=== PATIENT | male | born 1935 | race Caucasian/White ===

== ENCOUNTER → 2018-05-11 15:28 | Outpatient (CLI) | payer MEDICARE, SELFPAY ==
[2018-05-11 18:01] LABS: Aspartate Aminotransferase 26 IU/L (17-59); BUN Creatinine Ratio 36.3 (6-22); Blood Urea Nitrogen 29 mg/dL (9-20); Calcium 9.1 mg/dL (8.4-10.2); Carbon Dioxide 30 mmol/L (22-32); Chloride 107 mmol/L (98-107); Cholesterol 130 mg/dL (140-199); Estimated Glomerular Filt Rate > 60.0 mL/min (>60); Glucose 134 mg/dL (80-110); HDL Cholesterol 50 mg/dL (40-60); HEMOLYSIS 21 (0-50); LDL Cholesterol Calculated 71 mg/dL (<100); Potassium 4.8 mmol/L (3.4-5.1); Sodium 146 mmol/L (137-145); Triglycerides 45 mg/dL (35-150)
[2018-05-11 18:31] LABS: Thyroid Stimulating Hormone 0.72 uIU/mL (0.47-4.68)
== END ==
PROVIDERS: PCP Internal Medicine; Visit Provider Internal Medicine
DX: E78.2 Mixed hyperlipidemia (principal); E11.9 Type 2 diabetes mellitus without complications; I10 Essential (primary) hypertension
CPT/HCPCS: 36415; 80048; 80061; 83036; 84443; 84450

== ENCOUNTER 2018-05-17 06:51 | Day surgery (SDC) | payer MEDICARE, OTHER, SELFPAY ==
[2018-05-17 07:25] VITALS: BP 155/75; PULSE 73; RESP 15; TEMP 36.2; O2SAT 94; BMI 23.6
[2018-05-17] MEDS: PROPARACAINE 0.5% OPHTH SOL 2 DROPS EYE-OP (07:25)
--- NOTE | 2018-05-17 07:31 | PM.PREOP ---
Pre-operative Note Interval Note Pre-op Check: Yes History & Physical Reviewed by Physician Changes: No H&P completed within 30 days and has changed as indicated here:: Fasting glucose 117 this AM
--- NOTE | 2018-05-17 07:34 | P.OP_ITS ---
Operative Date/Time/Diagnoses Date of procedure: 05/17/18 Time of procedure: 07:32 Procedure & Clinicians Procedure: Date of service:05/17/2018 Preoperative diagnoses: 1. Right advanced cataract. 2. Prostate disorder with floppy iris. 3. Narrow angle glaucoma suspect. 4. Diabetes, non-insulin dependent. 5. Hip and neck pain Postoperative diagnoses: 1. CataractAdvanced nuclear scerotic and cortical changes. Procedure: Complex Phacoemulsification with posterior chamber intraocular lens implant and use of Malugin ring. Surgeon: Nancy Sánchez MD Complications:none Specimen: None Implant:ZCBOO+24.0 Blood loss: None Anesthesia: Retrobulbar with monitored standby Anesthesiologist: Oskar Gar M.D. Description of procedure: Patient is a male year old with decreased vision due to cataract which is affecting activities of daily living. He wants surgery to improve vision. He is tamsulosin for prostate and has high risk of floppy iris syndrome. He has taken to the operating room and given IV sedation. A retrobulbar block insert consisting of 6 cc of 2% xylocaine without epinephrine mixed half and half with 0.5% Marcaine with 1 cc of hyaluronidase added is placed between the medial and lateral 1/3 of the inferior orbital rim. Lid akinesia is obtain with 1% xylocaine with epinephrine infiltrated along the lid margin. The eye is manually massaged for 30 sec, prepped using Betadine solution, and draped in the usual sterile fashion. Temporal approach was made, a 1 mm side-port incision was made at the 7:30 position. Phenylephrine 1.5% mixed with 1% xylocaine 0.2 cc was placed into the anterior chamber. Viscoat followed by Bala was then placed. A 2.6 mm clear incision with a 2.6 mm blade was placed at the 170 degree meridian.A Malyugin ring of 7.0 mm was placed in the anterior chamber. It was difficult to place due to a narow chamber and only to loops were used as placement was causing endothelial damage risk. A 360 degree capsulorrhexis style capsulotomy was then performed with a cystitome needle on a Healon. Hydrodelineation and hydrodissection were performed. The phacoemulsification unit is introduced, and sculpting notice used to groove the central lens. It is then removed in chopping mode. Epi nucleus is removed with epinuclear mode and irrigation aspiration was used to remove the peripheral cortex. The posterior capsule is polished. The intraocular lens is selected, inspected, power confirmed, and placed in the posterior chamber. The pupil was constricted. The wound was stromally hydrated and tested for leaks, there was none and was left sutureless. Vigamox 0.1 cc was placed into the anterior chamber. Kenalog 0.2 cc was placed in the superior subconjunctival space. A drop of antibiotic and was placed and the eye was patched and shielded. The patient was stable and returned to the recovery room in excellent condition. His iris did not flop and his glucose was stabe at 127 prior to surgery. Dictated by: Nancy Sánchez MD Copy to: [facility]
[2018-05-17] MEDS: CATARACT EYE COMPOUND (10 DROPS/SYRINGE) 3 DROPS EYE-OP (07:43)
[2018-05-17 07:55] VITALS: BMI 23.6
[2018-05-17] MEDS: BALANCED SALT IRRIG SOLN NO.2 15 ML IRRIG.SOLN IRR (08:24)
[2018-05-17] MEDS: CARBACHOL 1.5 ML VIAL INJ (08:24)
[2018-05-17] MEDS: CHONDROIDTIN/SOD HYALURONATE 1.05 ML SYRINGE INTRAOCULA (08:25)
[2018-05-17] MEDS: MOXIFLOXACIN OPHTH DROPS 3 ML BOTTLE 2 DROPS INJ (08:25)
[2018-05-17] MEDS: PHENYLEPHRINE/LIDOCAINE VIAL (OR) 0.2 ML EYE-OP (08:25)
[2018-05-17] MEDS: LIDOCAINE 1% W/EPI INJ 20 ML INJ (08:25)
[2018-05-17] MEDS: TRIAMCINOLONE 50 MG/5 ML VIAL INJ (08:26)
[2018-05-17] MEDS: BALANCED SALT IRRIG SOLN NO.2 500 ML, EPINEPHrine 1 MG IRR (08:26)
[2018-05-17] MEDS: LIDOCAINE 2% 4 ML, BUPIVACAINE 0.5% (PF) 4 ML, HYALURONIDASE 150 UNIT INJ (08:27)
[2018-05-17 09:05] VITALS: BP 153/66; PULSE 62; RESP 16; TEMP 36.6; O2SAT 99
--- NOTE | 2018-05-17 09:14 | SUR.PHASEII ---
instructions reviewed with pt and with verbalized understanding, pt tolerating coffee and crackers, up to bathroom to void.
[2018-05-17 09:18] VITALS: BP 152/68; PULSE 66; RESP 16; TEMP 36.6; O2SAT 99
== END 2018-05-17 09:21 | disposition home or self-care (01) ==
PROVIDERS: PCP Internal Medicine; Visit Provider Ophthalmology
DX: H25.11 Age-related nuclear cataract, right eye (principal); E11.9 Type 2 diabetes mellitus without complications; Z79.84 Long term (current) use of oral hypoglycemic drugs; I10 Essential (primary) hypertension; H21.81 Floppy iris syndrome; H40.039 Anatomical narrow angle, unspecified eye
CPT/HCPCS: J0171; J2704; J3301; J3470

== ENCOUNTER → 2019-05-03 11:06 | Outpatient (CLI) | payer MEDICARE, OTHER, SELFPAY ==
--- NOTE | 2019-05-03 | DI.RAD.S_ITS ---
PROCEDURE: XR HIP W PEL IF DONE LT 2V INDICATIONS: Pain in left hip TECHNIQUE: AP pelvis with lateral view(s) of the left hip(s). COMPARISON: [facility], , HIP 2V LEFT, 03/16/2010, 14:51. FINDINGS: Bones: No acute fracture. There is marked degeneration including loss of normal femoral head contour secondary to extensive cortical irregularity, cystic, sclerotic, and hypertrophic changes and complete loss of organized superior femoral acetabular joint space. There is likely ankylosis of the joint. There is axial migration of the right femoral head with severe medial and moderate to severe superior joint space loss. Pelvic ring appears intact. No suspicious bony lesions. Soft tissues: The visualized bowel gas pattern is normal. No suspicious soft tissue calcifications. IMPRESSION: 1. 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 2. Moderate to severe right hip degenerative changes. Dictated by: Elza Jones M.D. on 05/03/2019 at 14:57 Approved by: Elza Jones M.D. on 05/03/2019 at 15:01
== END ==
PROVIDERS: PCP Internal Medicine; Visit Provider Internal Medicine
DX: M25.552 Pain in left hip (principal)
CPT/HCPCS: 73502

== ENCOUNTER 2019-06-27 16:13 | Inpatient (IN) | payer MEDICARE, OTHER, SELFPAY ==
[2019-06-27] VITALS (9 sets, daily range): BP systolic 138–160; BP diastolic 64–91; PULSE 66–96; RESP 15–23; TEMP 36.4–36.7; O2SAT 93–100; BMI 24.4
--- NOTE | 2019-06-27 16:14 | DI.RAD.S_ITS ---
PROCEDURE: XR CHEST 1V INDICATIONS: suspected sepsis TECHNIQUE: One view of the chest was acquired. COMPARISON: None. FINDINGS: Surgical changes and devices: Median sternotomy and coronary artery bypass graft changes. Lungs and pleura: Lungs are clear. No pleural effusions or pneumothorax. Mediastinum: Mediastinal contours appear normal. Heart size is normal. Bones and chest wall: No suspicious bony lesions. Overlying soft tissues appear unremarkable. Degenerative changes in both shoulders. IMPRESSION: No acute process. Post coronary artery bypass graft. Dictated by: Elza Jones M.D. on 06/27/2019 at 17:18 Approved by: Elza Jones M.D. on 06/27/2019 at 17:19
[2019-06-27 16:49] LABS: Add Manual Diff / Slide Review NO; Basophils Absolute Auto 100 /uL (0-100); Basophils Percent Auto 0.6 % (0-2); Eosinophils Absolute Auto 0 /uL (0-450); Hematocrit 49.2 % (41-53); Hemoglobin 15.9 g/dL (13.5-17.5); Lymphocytes Absolute Auto 600 /uL (1100-4500); Lymphocytes Percent Auto 4.4 % (25-40); Mean Corpuscular HGB Conc 32.3 % (30-36); Mean Corpuscular Hemoglobin 30.2 PG (26-34); Mean Corpuscular Volume 93.5 fL (80-100); Monocytes Absolute Auto 700 /uL (0-900); Monocytes Percent Auto 5.7 % (3-14); Neutrophils Absolute Auto 11200 /uL (1500-7000); Neutrophils Percent Auto 89.3 % (50-75); Platelet Count 273 X10^3/uL (150-400); Red Blood Cell Count 5.26 X10^6/uL (4.5-5.9); Red Cell Distribution Width 15.7 % (11.6-14.8); White Blood Cell Count 12.6 X10^3/uL (4.5-11.0)
[2019-06-27 16:50] LABS: Prothrombin Time 11.1 SECONDS (10.1-12.7)
[2019-06-27 16:53] LABS: PTT Partial Thromboplastin Tim 32 SECONDS (26.4-36.2)
[2019-06-27 17:03] LABS: Creatine Kinase 1028 U/L (55-170)
[2019-06-27 17:04] LABS: Alanine Aminotransferase 21 IU/L (21-72); Albumin 4.7 g/dL (3.5-5.0); Albumin Globulin Ratio 1.3 (1.0-2.8); Alkaline Phosphatase 147 U/L (38-126); Aspartate Aminotransferase 69 IU/L (17-59); Bilirubin Total 1.4 mg/dL (0.2-1.3); Blood Urea Nitrogen 24 mg/dL (9-20); Calcium 9.8 mg/dL (8.4-10.2); Carbon Dioxide 18 mmol/L (22-32); Chloride 105 mmol/L (98-107); Globulin 3.5 g/dL (1.7-4.1); Glucose 232 mg/dL (80-110); HEMOLYSIS 23 (0-50); Lipase 41 U/L (23-300); Potassium 4.3 mmol/L (3.4-5.1); Sodium 143 mmol/L (137-145); Total Protein 8.2 g/dL (6.3-8.2)
[2019-06-27 17:09] LABS: B Type Natriuretic Peptide 444 (<100)
[2019-06-27 17:15] LABS: Troponin I 0.082 ng/mL (0.01-0.034)
[2019-06-27 17:16] LABS: Procalcitonin < 0.05 ng/mL (<0.5)
[2019-06-27 17:18] LABS: CKMB % Relative Index 1.2 % (1.5-5.0)
--- NOTE | 2019-06-27 17:38 | ED_ITS ---
HPI - Weakness General Chief complaint: Weakness Stated complaint: UTI, Fall Time Seen by Provider: 06/27/19 16:13 Source: patient, family and EMS Mode of arrival: EMS Limitations: no limitations History of Present Illness HPI Narrative: 83-year-old male former smoker with history of hypertension and hyperlipidemia presents by EMS after his 2nd fall of the day. He has had multiple falls as of late. They saw him this morning and he refused transport. On the 2nd call they insisted he come in as the patient is too weak to get up on his own, covered in his own urine, confused and living in a very unsafe environ ment. The patient has had a slow decline over the past month and seems to have stemmed from a fall at that time. He has excruciating left hip pain. He apparently stopped taking his medications at some point in that time frame as well. He has a primary care provider but keeps refusing to go to his appointments. states that he has become increasingly confused over the past week or so. MD Complaint: generalized weakness, lack of energy and difficulty walking Onset (ago): day(s) Duration: constant Location: generalized Exacerbating factors: none Related Data Home Medications Medication Instructions Recorded Confirmed acetaminophen 500 - 1,000 mg PO Q6H PRN 06/27/19 06/27/19 amlodipine 5 mg PO DAILY 06/27/19 06/27/19 aspirin 81 mg PO DAILY 06/27/19 06/27/19 atorvastatin 80 mg PO BEDTIME 06/27/19 06/27/19 carvedilol 25 mg PO BID 06/27/19 06/27/19 cholecalciferol (vitamin D3) 4,000 unit PO DAILY 06/27/19 06/27/19 [Vitamin D3] cyanocobalamin (vitamin B-12) 2,500 mcg SUBLINGUAL DAILY 06/27/19 06/27/19 [Vitamin B-12] levothyroxine 112 mcg PO DAILY 06/27/19 06/27/19 metformin 500 mg PO BID 06/27/19 06/27/19 omega-3 fatty acids-fish oil [Fish 1 cap PO 3XW 06/27/19 06/27/19 Oil] omeprazole 20 mg PO DAILY 06/27/19 06/27/19 ramipril 10 mg PO DAILY 06/27/19 06/27/19 terazosin 2 mg PO DAILY 06/27/19 06/27/19 Allergies Allergy/AdvReac Type Severity Reaction Status Date / Time No Known Drug Allergies Allergy Verified 05/17/18 07:54 Review of Systems Review of Systems Narrative: Patient is hesitant to contribute to review systems, therefore findings which are noted come from and daughter ROS Unobtainable: Unobtainable due to mental status/LOC Constitutional Constitutional: Denies chills, Reports fatigue, Denies fever(s), Denies frequent falls, Denies lethargy and Reports weakness Eyes Eyes: Denies change in vision, Denies eye discharge, Denies irritation and Denies loss of vision ENT Ears, Nose, Mouth, and Throat: Denies change in voice, Denies dizziness, Denies neck pain, Denies sore throat and Denies throat swelling Cardiovascular Cardiovascular: Denies chest pain, Denies irregular heart rhythm, Denies lightheadedness, Denies palpitations, Denies dyspnea, Denies dyspnea on exertion and Denies orthopnea Respiratory Respiratory: Denies cough, Denies dyspnea, Denies dyspnea on exertion and Denies wheezing Gastrointestinal Gastrointestinal: Denies abdominal pain, Denies change in bowel habits, Denies diarrhea, Denies nausea and Denies vomiting Genitourinary Genitourinary: Denies hematuria, Denies flank pain, Denies urinary incontinence and Denies urinary urgency Musculoskeletal Musculoskeletal: Denies back pain, Reports limited range of motion, Denies muscle weakness, Denies neck pain, Denies numbness and Denies tingling Integumentary/Breasts Skin/Breast: Denies pruritus, Denies erythema, Denies rash and Denies wounds Neurologic Neurologic: Denies behavioral changes, Reports confusion, Denies dizziness, Denies frequent falls, Denies loss of vision, Denies numbness, Denies tingling and Reports weakness Psychiatric Psychiatric: Denies anxiety, Denies behavioral changes, Reports confusion, Denies depression, Denies homicidal ideation and Denies suicidal ideation Endocrine Endocrine: Reports fatigue, Denies flushing and Denies palpitations Hematologic/Lymphatic Hematologic/Lymphatic: Denies easy bruising Allergic/Immunologic Allergic/Immunologic: Denies urticaria, Denies throat swelling and Denies wheezing Patient History Social History household members: spouse Smoking Status: Former smoker alcohol intake frequency: 0-2 drinks per day Substance Use Type: does not use Exam Narrative Exam Narrative: GENERAL: [83] year old patient appears stated age. Patient dish eveled, confused, unkempt, smells of urine HEAD: Atraumatic. Normocephalic. EYES: Pupils equal round and reactive. Extraocular motions intact. No scleral icterus. No injection or drainage. ENT: Dry mucous membranes Nose without bleeding, purulent drainage. Throat without erythema, tonsillar hypertrophy or exudate. Airway patent. NECK: Trachea midline. Non tender CARDIOVASCULAR: Regular rate and rhythm without murmurs, gallops, or rubs. RESPIRATORY: Clear to auscultation. Breath sounds equal bilaterally. No wheezes, rales, or rhonchi. GASTROINTESTINAL: Abdomen soft, non-tender, nondistended. EXTREMITIES: Severe pain in left hip with any passive or active range of motion No edema or joint tenderness. BACK: Nontender without deformity or crepitance. No flank tenderness. NEURO: Alert, oriented to person and place SKIN: Multiple areas of skin breakdown and abrasion on knees and elbows No rash or erythema of visible areas Initial Vital Signs Initial Vital Signs: Vital Signs Temperature 97.5 F L 06/27/19 16:10 Pulse Rate 96 H 06/27/19 16:10 Respiratory Rate 23 06/27/19 16:10 Blood Pressure 138/64 06/27/19 16:10 Pulse Oximetry 93 06/27/19 16:10 Course Orders Ordered: ED Orders 06/27/19 16:14 XR chest 1V Stat RT Consult Eval and Treat Now 06/27/19 16:26 EKG-12 Lead Stat 06/27/19 16:37 BNP [B Type Natriuretic Peptide] Stat Complete Blood Count AUTO DIFF Stat Comprehensive Metabolic Panel Stat Lactate (Lactic Acid) Stat Lipase Stat Partial Thromboplastin Time Stat Procalcitonin Stat Prothrombin Time INR Stat Troponin & CK Cardiac Panel Stat 06/27/19 16:40 Blood Culture Stat 06/27/19 17:45 CT head/brain wo con Stat 06/27/19 17:50 Urinalysis and Microscopic Stat 06/27/19 17:53 CT pelvis wo con Stat Discontinued Medications Fentanyl (Sublimaze) 50 mcg IV NOW ONE Stop: 06/27/19 18:23 Last Admin: 06/27/19 19:06 Dose: 50 mcg Documented by: SIMON Sodium Chloride (Normal Saline 0.9%) 1,000 mls @ 1,000 mls/hr IV BOLUS ONE Stop: 06/27/19 18:35 Last Infusion: 06/27/19 19:05 Dose: 0 mls/hr Documented by: Admin: 06/27/19 17:40 Dose: 1,000 mls/hr Documented by: SIMON Sodium Chloride (Normal Saline 0.9%) 1,000 mls @ 1,000 mls/hr IV BOLUS ONE Stop: 06/27/19 18:37 Last Admin: 06/27/19 19:05 Dose: 150 mls/hr Documented by: SIMON Lidocaine HCl (Urojet) 5 ml TOP NOW ONE Stop: 06/27/19 17:39 Last Admin: 06/27/19 17:40 Dose: 5 ml Documented by: SIMON Vital Signs Vital signs: Vital Signs - 8 hr 06/27/19 16:10 06/27/19 17:22 06/27/19 18:00 Temperature 97.5 F L Pulse Rate 96 H 74 69 Respiratory Rate 23 15 15 Blood Pressure 138/64 Blood Pressure [Left Arm] 143/72 H 159/76 H Pulse Oximetry 93 97 99 06/27/19 18:30 06/27/19 19:32 Temperature Pulse Rate 71 75 Respiratory Rate 15 17 Blood Pressure Blood Pressure [Left Arm] 160/74 H 158/83 H Pulse Oximetry 100 97 MDM - Weakness Lab Data Result diagrams: 06/27/19 16:37 06/27/19 16:37 Labs: Lab Results 06/27/19 06/27/19 06/27/19 Range/Units 16:37 16:37 16:37 WBC 12.6 H (4.5-11.0) X10^3/uL RBC 5.26 (4.5-5.9) X10^6/uL Hgb 15.9 (13.5-17.5) g/dL Hct 49.2 (41-53) % MCV 93.5 (80-100) fL MCH 30.2 (26-34) PG MCHC 32.3 (30-36) % RDW 15.7 H (11.6-14.8) % Plt Count 273 (150-400) X10^3/uL Neut % (Auto) 89.3 H (50-75) % Lymph % (Auto) 4.4 L (25-40) % [place] % (Auto) 5.7 (3-14) % Eos % (Auto) 0.0 L (2-4) % Baso % (Auto) 0.6 (0-2) % Neut # (Auto) 57388 H (4864-6932) /uL Lymph # (Auto) 600 L (9658-9286) /uL [place] # (Auto) 700 (0-900) /uL Eos # (Auto) 0 (0-450) /uL Baso # (Auto) 100 (0-100) /uL PT 11.1 (10.1-12.7) SECONDS INR 1.0 (0.9-1.3) APTT 32 (26.4-36.2) SECONDS Sodium (137-145) mmol/L Potassium (3.4-5.1) mmol/L Chloride (98-107) mmol/L Carbon Dioxide (22-32) mmol/L BUN (9-20) mg/dL Creatinine (0.66-1.25) mg/dL Estimated GFR (>60) mL/min BUN/Creatinine Ratio (6-22) Glucose (80-110) mg/dL Lactate (0.7-2.1) mmol/L Calcium (8.4-10.2) mg/dL Total Bilirubin (0.2-1.3) mg/dL AST (17-59) IU/L ALT (21-72) IU/L Alkaline Phosphatase (38-126) U/L Total Creatine Kinase (55-170) U/L CK-MB (CK-2) (<2.37) ng/mL CK-MB (CK-2) Rel Index (1.5-5.0) % Troponin I (0.01-0.034) ng/mL B-Natriuretic Peptide (<100) Total Protein (6.3-8.2) g/dL Albumin (3.5-5.0) g/dL Globulin (1.7-4.1) g/dL Albumin/Globulin Ratio (1.0-2.8) Lipase (23-300) U/L Procalcitonin < 0.05 (<0.5) ng/mL Urine Color Urine Appearance Urine pH (4.5-8.0) Ur Specific Dexter (1.000-1.035) Urine Protein (Negative) Urine Glucose (UA) (Negative) g/dL Urine Ketones (NEGATIVE) Urine Occult Blood (Negative) Urine Nitrate (Negative) Urine Bilirubin (NEGATIVE) Urine Urobilinogen (0.2) E.U./dL Ur Leukocyte Esterase (NEGATIVE) Urine RBC (0-5/HPF) Urine WBC (0-5/HPF) Amorphous Sediment Urine Bacteria (None) Ur Culture Indicated? 06/27/19 06/27/19 06/27/19 Range/Units 16:37 16:37 16:37 WBC (4.5-11.0) X10^3/uL RBC (4.5-5.9) X10^6/uL Hgb (13.5-17.5) g/dL Hct (41-53) % MCV (80-100) fL MCH (26-34) PG MCHC (30-36) % RDW (11.6-14.8) % Plt Count (150-400) X10^3/uL Neut % (Auto) (50-75) % Lymph % (Auto) (25-40) % [place] % (Auto) (3-14) % Eos % (Auto) (2-4) % Baso % (Auto) (0-2) % Neut # (Auto) (8782-0673) /uL Lymph # (Auto) (6650-7193) /uL [place] # (Auto) (0-900) /uL Eos # (Auto) (0-450) /uL Baso # (Auto) (0-100) /uL PT (10.1-12.7) SECONDS INR (0.9-1.3) APTT (26.4-36.2) SECONDS Sodium 143 (137-145) mmol/L Potassium 4.3 (3.4-5.1) mmol/L Chloride 105 (98-107) mmol/L Carbon Dioxide 18 L (22-32) mmol/L BUN 24 H (9-20) mg/dL Creatinine 1.20 (0.66-1.25) mg/dL Estimated GFR 58.0 L (>60) mL/min BUN/Creatinine Ratio 20.0 (6-22) Glucose 232 H (80-110) mg/dL Lactate 3.0 H (0.7-2.1) mmol/L Calcium 9.8 (8.4-10.2) mg/dL Total Bilirubin 1.4 H (0.2-1.3) mg/dL AST 69 H (17-59) IU/L ALT 21 (21-72) IU/L Alkaline Phosphatase 147 H (38-126) U/L Total Creatine Kinase 1028 H (55-170) U/L CK-MB (CK-2) 12.80 H (<2.37) ng/mL CK-MB (CK-2) Rel Index 1.2 L (1.5-5.0) % Troponin I 0.082 H (0.01-0.034) ng/mL B-Natriuretic Peptide (<100) Total Protein 8.2 (6.3-8.2) g/dL Albumin 4.7 (3.5-5.0) g/dL Globulin 3.5 (1.7-4.1) g/dL Albumin/Globulin Ratio 1.3 (1.0-2.8) Lipase 41 (23-300) U/L Procalcitonin (<0.5) ng/mL Urine Color Urine Appearance Urine pH (4.5-8.0) Ur Specific Dexter (1.000-1.035) Urine Protein (Negative) Urine Glucose (UA) (Negative) g/dL Urine Ketones (NEGATIVE) Urine Occult Blood (Negative) Urine Nitrate (Negative) Urine Bilirubin (NEGATIVE) Urine Urobilinogen (0.2) E.U./dL Ur Leukocyte Esterase (NEGATIVE) Urine RBC (0-5/HPF) Urine WBC (0-5/HPF) Amorphous Sediment Urine Bacteria (None) Ur Culture Indicated? 06/27/19 06/27/19 06/27/19 Range/Units 16:37 17:50 19:06 WBC (4.5-11.0) X10^3/uL RBC (4.5-5.9) X10^6/uL Hgb (13.5-17.5) g/dL Hct (41-53) % MCV (80-100) fL MCH (26-34) PG MCHC (30-36) % RDW (11.6-14.8) % Plt Count (150-400) X10^3/uL Neut % (Auto) (50-75) % Lymph % (Auto) (25-40) % [place] % (Auto) (3-14) % Eos % (Auto) (2-4) % Baso % (Auto) (0-2) % Neut # (Auto) (5291-9891) /uL Lymph # (Auto) (0281-5685) /uL [place] # (Auto) (0-900) /uL Eos # (Auto) (0-450) /uL Baso # (Auto) (0-100) /uL PT (10.1-12.7) SECONDS INR (0.9-1.3) APTT (26.4-36.2) SECONDS Sodium (137-145) mmol/L Potassium (3.4-5.1) mmol/L Chloride (98-107) mmol/L Carbon Dioxide (22-32) mmol/L BUN (9-20) mg/dL Creatinine (0.66-1.25) mg/dL Estimated GFR (>60) mL/min BUN/Creatinine Ratio (6-22) Glucose (80-110) mg/dL Lactate 1.7 (0.7-2.1) mmol/L Calcium (8.4-10.2) mg/dL Total Bilirubin (0.2-1.3) mg/dL AST (17-59) IU/L ALT (21-72) IU/L Alkaline Phosphatase (38-126) U/L Total Creatine Kinase (55-170) U/L CK-MB (CK-2) (<2.37) ng/mL CK-MB (CK-2) Rel Index (1.5-5.0) % Troponin I (0.01-0.034) ng/mL B-Natriuretic Peptide 444 H (<100) Total Protein (6.3-8.2) g/dL Albumin (3.5-5.0) g/dL Globulin (1.7-4.1) g/dL Albumin/Globulin Ratio (1.0-2.8) Lipase (23-300) U/L Procalcitonin (<0.5) ng/mL Urine Color Yellow Urine Appearance Clear Urine pH 6.5 (4.5-8.0) Ur Specific Dexter 1.015 (1.000-1.035) Urine Protein Trace H (Negative) Urine Glucose (UA) Negative (Negative) g/dL Urine Ketones Negative (NEGATIVE) Urine Occult Blood 1+ H (Negative) Urine Nitrate Negative (Negative) Urine Bilirubin Negative (NEGATIVE) Urine Urobilinogen 0.2 (0.2) E.U./dL Ur Leukocyte Esterase Negative (NEGATIVE) Urine RBC 1-5/hpf (0-5/HPF) Urine WBC None seen (0-5/HPF) Amorphous Sediment 2+ Urine Bacteria None seen (None) Ur Culture Indicated? Cult not indicated Imaging Data CT scan - head: Radiologist's impression: Nicolas Burnham 83 M 1935 [address] [address] [address] Scan Report Signed Patient: Nicolas Burnham RMR#: [id number] : 1935cct:[id number] Age/Sex: 83 / MDate of Service: 06/27/19 Loc: ED Accession Number: [id number] Procedure: CT head/brain wo con Ordering Provider: Travis Maddox D.O. PROCEDURE: CT HEAD/BRAIN WO CON INDICATIONS: multiple falls, confusion, weakness TECHNIQUE: Noncontrast 4.5 mm thick angled axial sections acquired from the foramen magnum to the vertex, with coronal and sagittal reformats. For radiation dose reduction, the following was used: automated exposure control, adjustment of mA and/or kV according to patient size. COMPARISON: None. FINDINGS: Image quality: Excellent. CSF spaces: Basal cisterns are patent. No extra-axial fluid collections. The ventricles are symmetric in size and shape. Brain: No intracranial bleeds or masses. There is cerebral volume loss for age, with resultant ventricular and sulcal prominence. There are periventricular and deep white matter chronic small vessel ischemic changes. There is intracranial internal carotid artery atherosclerosis. Skull and face: Calvarium and visualized facial bones appear intact, without suspicious lesions. Sinuses: Visualized sinuses and mastoids are clear. IMPRESSION: 1. No CT evidence of acute intracranial process. 2. Age-appropriate exam with mild chronic microvascular ischemic changes. Dictated by: Elza Jones M.D. on 06/27/2019 at 18:50 Approved by: Elza Jones M.D. on 06/27/2019 at 18:54 CT scan - pelvis: Radiologist's impression: [address] [address] [address] Scan Report Signed Patient: Nicolas Burnham RMR#: [id number] : 7Acct:[id number] Age/Sex: 83 / MDate of Service: 06/27/19 Loc: ED Accession Number: [id number] Procedure: CT pelvis wo con Ordering Provider: Travis Maddox D.O. PROCEDURE: CT PEL WO CON INDICATIONS: severe L hip pain TECHNIQUE: Noncontrast 3 mm axial sections acquired through the bony pelvis, with coronal and sagittal reformatting. COMPARISON: [facility], CR, XR HIP W PEL IF DONE LT 2V, 05/03/2019, 11:19. FINDINGS: Image quality: Excellent. Bones: There are severe degenerative changes in the left femoral acetabular joint including significant subcortical cystic changes, flattening and complete joint space loss of the superior femora acetabular joint, large marginal osteophytes, acetabular protrusio, and inward buckling of the medial wall of acetabulum. The fracture of the medial wall of the acetabulum is of uncertain chronicity as there is no significant thickening of the overlying tissue.. No other left hip fractures are identified. There are moderate degenerative changes involving the right femoral acetabular j oint. Decreased mineralization seen throughout the pelvis. Soft tissues: Small bilateral hip joint effusions. No significant soft tissue hematoma. No free fluid in the pelvis. Urinary bladder is partially decompressed with Coates catheter. There are numerous diverticula seen throughout the colon. There is a small bowel containing right inguinal hernia without signs of obstruction. Nonobstruct ing calcification seen in the lower pole of the right kidney. Moderate abdominal aortic atherosclerosis. IMPRESSION: 1. Severe left hip degenerative changes. Similar in morphology compared to the most recent radiograph. 2. There is a small buckle fracture of the medial left acetabular cortex without overlying soft tissue thickening. This is of uncertain chronicity. MRI is recommended to assess for age. No other acetabular or pelvic fractures. 3. Nonobstructing, small bowel containing right inguinal hernia. 4. Moderate degenerative changes involving the right femoral acetabular joint. Dictated by: Elza Jones M.D. on 06/27/2019 at 18:54 Approved by: Elza Jones M.D. on 06/27/2019 at 19:07 Chest x-ray: Radiologist's impression: [facility] [address] [place] [address] [id number] [address] Scan Report Signed Patient: Nicolas Burnham RMR#: [id number] : 1936Acct:[id number] Age/Sex: 83 / MDate of Service: 06/27/19 Loc: ED Accession Number: [id number] Procedure: CT pelvis wo con Ordering Provider: Travis Maddox D.O. PROCEDURE: CT PEL WO CON INDICATIONS: severe L hip pain TECHNIQUE: Noncontrast 3 mm axial sections acquired through the bony pelvis, with coronal and sagittal reformatting. COMPARISON: [facility], CR, XR HIP W PEL IF DONE LT 2V, 05/03/2019, 11:19. FINDINGS: Image quality: Excellent. Bones: There are severe degenerative changes in the left femoral acetabular joint including significant subcortical cystic changes, flattening and complete joint space loss of the superior femora acetabular joint, large marginal osteophytes, ac etabular protrusio, and inward buckling of the medial wall of acetabulum. The fracture of the medial wall of the acetabulum is of uncertain chronicity as there is no significant thickening of the overlying tissue.. No other left hip fractures are identified. There are moderate degenerative changes involving the right femoral acetabular joint. Decreased mineralization seen throughout the pelvis. Soft tissues: Small bilateral hip joint effusions. No significant soft tissue hematoma. No free fluid in the pelvis. Urinary bladder is partially decompressed with Coates catheter. There are numerous diverticula seen throughout the colon. There is a small bowel containing right inguinal hernia without signs of obstruction. Nonobstructing calcification seen in the lower pole of the right kidney. Moderate abdominal aortic atherosclerosis. IMPRESSION: 1. Severe left hip degenerative changes. Similar in morphology compared to the most recent radiograph. 2. There is a small buckle fracture of the medial left acetabular cortex without overlying soft tissue thickening. This is of uncertain chronicity. MRI is recommended to assess for age. No other acetabular or pelvic fractures. 3. Nonobstructing, small bowel containing right inguinal hernia. 4. Moderate degenerative changes involving the right femoral acetabular joint. Dictated by: Elza Jones M.D. on 06/27/2019 at 18:54 Approved by: Elza Jones M.D. on 06/27/2019 at 19:07 [facility] Narrative Medical decision making narrative: 83-year-old male with multiple comorbidities is frail and clearly failing as an outpatient. He has had multiple falls and is nonambulatory. He is confused, very dehydrated with the elevated lactate and CK over 1000. Patient requires hospitalization for stabilization of his condition Discharge Plan Departure Patient Disposition: Admitted As Inpatient Clinical Impression: Acute kidney injury, Adult failure to thrive Rhabdomyolysis Qualifiers: Rhabdomyolysis type: non-traumatic Qualified Code(s): M62.82 - Rhabdomyolysis Referrals: Shahab Flowers MD [Primary Care Provider] -
[2019-06-27] MEDS: LIDOCAINE 2% (UROJET) 5 ML GEL TOP (17:40)
[2019-06-27] MEDS: SODIUM CHLORIDE 0.9% 1,000 ML 1000 ML IV (17:40)
--- NOTE | 2019-06-27 17:45 | DI.CT.S_ITS ---
PROCEDURE: CT HEAD/BRAIN WO CON INDICATIONS: multiple falls, confusion, weakness TECHNIQUE: Noncontrast 4.5 mm thick angled axial sections acquired from the foramen magnum to the vertex, with coronal and sagittal reformats. For radiation dose reduction, the following was used: automated exposure control, adjustment of mA and/or kV according to patient size. COMPARISON: None. FINDINGS: Image quality: Excellent. CSF spaces: Basal cisterns are patent. No extra-axial fluid collections. The ventricles are symmetric in size and shape. Brain: No intracranial bleeds or masses. There is cerebral volume loss for age, with resultant ventricular and sulcal prominence. There are periventricular and deep white matter chronic small vessel ischemic changes. There is intracranial internal carotid artery atherosclerosis. Skull and face: Calvarium and visualized facial bones appear intact, without suspicious lesions. Sinuses: Visualized sinuses and mastoids are clear. IMPRESSION: 1. No CT evidence of acute intracranial process. 2. Age-appropriate exam with mild chronic microvascular ischemic changes. Dictated by: Elza Jones M.D. on 06/27/2019 at 18:50 Approved by: Elza Jones M.D. on 06/27/2019 at 18:54
--- NOTE | 2019-06-27 17:53 | DI.CT.S_ITS ---
PROCEDURE: CT PEL WO CON INDICATIONS: severe L hip pain TECHNIQUE: Noncontrast 3 mm axial sections acquired through the bony pelvis, with coronal and sagittal reformatting. COMPARISON: [facility], CR, XR HIP W PEL IF DONE LT 2V, 05/03/2019, 11:19. FINDINGS: Image quality: Excellent. Bones: There are severe degenerative changes in the left femoral acetabular joint including significant subcortical cystic changes, flattening and complete joint space loss of the superior femora acetabular joint, large marginal osteophytes, acetabular protrusio, and inward buckling of the medial wall of acetabulum. The fracture of the medial wall of the acetabulum is of uncertain chronicity as there is no significant thickening of the overlying tissue.. No other left hip fractures are identified. There are moderate degenerative changes involving the right femoral acetabular joint. Decreased mineralization seen throughout the pelvis. Soft tissues: Small bilateral hip joint effusions. No significant soft tissue hematoma. No free fluid in the pelvis. Urinary bladder is partially decompressed with Coates catheter. There are numerous diverticula seen throughout the colon. There is a small bowel containing right inguinal hernia without signs of obstruction. Nonobstructing calcification seen in the lower pole of the right kidney. Moderate abdominal aortic atherosclerosis. IMPRESSION: 1. Severe left hip degenerative changes. Similar in morphology compared to the most recent radiograph. 2. There is a small buckle fracture of the medial left acetabular cortex without overlying soft tissue thickening. This is of uncertain chronicity. MRI is recommended to assess for age. No other acetabular or pelvic fractures. 3. Nonobstructing, small bowel containing right inguinal hernia. 4. Moderate degenerative changes involving the right femoral acetabular joint. Dictated by: Elza Jones M.D. on 06/27/2019 at 18:54 Approved by: Elza Jones M.D. on 06/27/2019 at 19:07
[2019-06-27 17:56] LABS: Bacteria Urine None Seen; WBC Urine None Seen (0-5/HPF)
[2019-06-27 17:57] LABS: Appearance Urine UA CLEAR; Bilirubin Urine UA NEGATIVE (NEGATIVE); Color Urine UA YELLOW; Glucose Urine UA NEGATIVE (Negative); Ketones Urine UA NEGATIVE (NEGATIVE); Leukocyte Esterase Urine UA NEGATIVE (NEGATIVE); Nitrite Urine UA NEGATIVE (Negative); Occult Blood Urine UA 1+ (Negative); Protein Urine UA TRACE (Negative); Specific Gravity Urine UA 1.015 (1.000-1.035); Urobilinogen Urine UA 0.2 E.U./dL (0.2); pH Urine UA 6.5 (4.5-8.0)
[2019-06-27 18:17] LABS: Amorphous Sediment Urine 2+; Culture Indicated Urine Cult Not Indicated; RBC Urine 1-5/HPF (0-5/HPF)
[2019-06-27 18:43] LABS: Reflexed Lactate in 2 Hours Y
[2019-06-27] MEDS: SODIUM CHLORIDE 0.9% 1,000 ML 150 ML IV (19:05)
[2019-06-27] MEDS: fentaNYL 100 MCG/2 ML INJ 50 MCG IV ×2 (19:06→20:55)
[2019-06-27 19:22] LABS: Lactate 2HR (Lactic Acid Rflx) 1.7 mmol/L (0.7-2.1)
--- NOTE | 2019-06-27 19:33 | PC.NURSE ---
Full bedbath given. Multiple areas of break down including scrutum, between legs, coccxy. Open blisters noted on scrotum. Toe nails are grown into toes causing pain and discomfort.
--- NOTE | 2019-06-27 22:23 | PC.NURSE ---
Admit/Evening Shift Note- Patient arrived to room via stretcher from ER. Slider board used to transfer patient. Patient alert and oriented with occasional confusion and foregetfullness.
--- NOTE | 2019-06-27 22:25 | PC.NURSE ---
Admit/Evenign SHift Note- Patient arrived to room via stretcher from ER at 2115. Slider board used to transfer patientm to bed. Patient alert and oriented x2 with confusion and forgetfullness noted. Admission questions done, medications reviewed, and physical assessment done. abrasion noted to right knee. red rash noted to groin area, patient constantly scratching this area. Oriented to patient to bed and bed controls, phone, lights, and call hernandez/tv remote. Patient will require frequent reorientations due confusion and forgetfullness. safety measures in place. bed alarm activated. call hernandez and phone within reach. will continue to monitor.
--- NOTE | 2019-06-27 23:33 | PM.HP.1 ---
History of Present Illness History of Present Illness Date Patient Seen: 06/27/19 Time Patient Seen: 23:33 Chief complaint: UTI, Fall Narrative: HPI is obtained via direct interview with the patient. The patient is a poor and unreliable historian. The patient is an 83-year-old male with PMH of CAD (s/p CABG), HTN, HLD, hypothyroidism, BPH, B12/Folate deficiency, Muhammad's esophagus, and chronic right hip pain. Patient presented to the ED earlier in the day after sustaining a ground level fall. This is patient's 2nd fall of the day. Patient reports slipping on butter. Reports falling forward. Reports injury to the left aspect of the forehead. Denies loss of consciousness. Typically takes anti-thrombotic therapy, however has not taken any of his medications for the past 2 weeks. Patient states, I don't like to take medication and I'm tired of counting pills. Denies headache, neck pain, change in vision, chest pain, palpitations, dizziness/lightheadedness, shortness of breath, abdominal pain, and GI distress. States for the past month he has had dysuria, burning with urination. There is tenderness and edema of the scrotum and penis. Endorses urinary frequency. Denies hematuria. According to the ED patient has had progressive decline in health and deconditioning at least for the past 1 month. He has had recurrent falls. Patient lives with his . At baseline ambulates with the use of a cane. Known to have chronic left hip pain. ED Presentation & Work-Up VS, 06/27 @ 1610. T 97.5F BP 138/64 HR 96 RR 23 SpO2 93% on RA. Labs, 06/27/2019 @ 1637 Lactate 3.0 -> 1.7 (repeat @ 1906), PCT < 0.05 WBC 12.6 HGB 15.9 HCT 49.2 PLT 273 PT 11.1 INR 1.0 aPTT 32 Na 143 K 4.3 Cl 105 Ca 9.8 CO2 18 BUN 24 Cr 1.2 GFR 58 BUN:Cr 20 Glu 232 T.Bili 1.4 AST 69 ALT 21 Alk Phos 147 Lipase 41 CK (total) 1028 Trop 0.082 BNP 444 UA. protein (trace), occult blood (1+) EKG, 06/27/2019 @ 1626. AFIB (v-rate 92) vs. QTc 514. XR CHEST, 06/27/2019. No acute process. HEAD CT, 06/27/2019. No CT evidence of acute intracranial process. Age appropriate exam with mild chronic microvascular ischemic changes. PELVIS CT, 06/27/2019. - Severe LEFT hip degenerative changes. - Small buckle fracture of the medial LEFT acetabular cortex without overlying soft tissue thickening. This is of uncertain chronicity. MRI is recommended to assess for age. No other acetabular or pelvic fractures. - Nonobstructing, small bowel containing right inguinal hernia - Moderate degenerative changes involving the RIGHT femoral acetabular joint In ED, received 1L NS (1739), Lidocaine patch (1739), and Fentanyl 50 mcg IV (1905 and 2054). Coates catheter was placed in ED. Patient History Medical History (Updated 06/28/19 @ 07:50 by MADIHA Guevara) Ankylosis, left hip (Chronic) Muhammad esophagus (Chronic) Essential hypertension (Chronic) Folate deficiency (Chronic) Hyperlipidemia (Chronic) Hypothyroidism (Chronic) Vitamin B12 deficiency (Chronic) Family & Social History Social History: household members spouse Prior Living Arrangements House Safety & Behavioral: Feels Safe in Current Yes Environment Been Physically Hurt or No Threatened By a Person Suicidal Ideation Description None Suicide Plan Description No Plan Tobacco & Substance use: Smoking Status Former smoker alcohol intake never alcohol intake frequency 0-2 drinks per day Substance Use Type does not use Meds Home Medications and Allergies Home Medications Medication Instructions Recorded Confirmed Type acetaminophen 500 - 1,000 mg PO Q6H PRN 06/27/19 06/27/19 History amlodipine 5 mg PO DAILY 06/27/19 06/27/19 History aspirin 81 mg PO DAILY 06/27/19 06/27/19 History atorvastatin 80 mg PO BEDTIME 06/27/19 06/27/19 History carvedilol 25 mg PO BID 06/27/19 06/27/19 History cholecalciferol (vitamin D3) 4,000 unit PO DAILY 06/27/19 06/27/19 History [Vitamin D3] cyanocobalamin (vitamin B-12) 2,500 mcg SUBLINGUAL DAILY 06/27/19 06/27/19 History [Vitamin B-12] levothyroxine 112 mcg PO DAILY 06/27/19 06/27/19 History metformin 500 mg PO BID 06/27/19 06/27/19 History omega-3 fatty acids-fish oil [Fish 1 cap PO 3XW 06/27/19 06/27/19 History Oil] omeprazole 20 mg PO DAILY 06/27/19 06/27/19 History ramipril 10 mg PO DAILY 06/27/19 06/27/19 History terazosin 2 mg PO DAILY 06/27/19 06/27/19 History Allergies Allergy/AdvReac Type Severity Reaction Status Date / Time No Known Drug Allergies Allergy Verified 05/17/18 07:54 Review of Systems Review of Systems ROS Unobtainable: All systems reviewed & are unremarkable except as noted in HPI and below Exam Vital Signs (past 8 hours): - 06/27/19 16:10 06/27/19 17:22 06/27/19 18:00 Temperature 97.5 F L Pulse Rate 96 H 74 69 Respiratory Rate 23 15 15 Blood Pressure 138/64 Blood Pressure [Left Arm] 143/72 H 159/76 H Pulse Oximetry 93 97 99 06/27/19 18:30 06/27/19 19:32 06/27/19 20:23 Temperature Pulse Rate 71 75 66 Respiratory Rate 15 17 16 Blood Pressure Blood Pressure [Left Arm] 160/74 H 158/83 H 154/80 H Pulse Oximetry 100 97 97 06/27/19 21:24 Temperature 98.0 F Pulse Rate 69 Respiratory Rate 18 Blood Pressure 152/91 H Blood Pressure [Left Arm] Pulse Oximetry 97 Oxygen Delivery Method Room Air Narrative Exam Narrative: Constitutional: NAD. Frail in appearance. BMI 24.4 Neurologic: Awake and alert, oriented to person, place, year, season, month, day, and reason for hospital admission No tremor. No facial asymmetry. No unilateral weakness. No fasciculations. Forgetful. Frequently repeat self. No dysarthria or aphasia. Head: NC, AT Eyes: Pupils equal and reactive. Sclerae are anicteric. EOMI. Ears: external ears normal, very hard of hearing to normal conversation, no otorrhea Nose: external nose normal, no rhinorrhea or epistaxis Throat: DRY MM, poor oral hygiene, no oral lesions noted Neck: no masses, lymphadenopathy, or JVD Chest / Respiratory: equal chest rise unlabored respiratory effort, no dyspnea or tachypnea at rest, speaks in full sentences without difficulty CTAB Heart / CV: Irregular rhythm, controlled ventricular rate on telemetry, murmur present Abdomen / GI: NT, ND, + BS, no organomegaly : No suprapubic tenderness, Coates catheter present Scrotum: Edema of testicles and penis. Erythema of testicles. White lesions, some draining present on scrotum. Scrotum tender with palpation (pain appears to be severe to light touch) Area above the scrotum is dry. There is multiple pina consistent with scratching with scab formation. No evidence of intertrigo. Peripheral / Vascular: warm to touch, DP pulse is palpable and strong, both lower extremities warm to touch Musc: Full ROM of bilateral upper extremities. Diminished ROM of bilateral lower extremities. Pain with palpation of the left hip. Patient reluctant to left from bed due to pain. Able to lift right lower extremity hold against gravity. Skin: No overt ecchymoses. Scrotum as described previously. Scratches with scab formation in the suprapubic area and lower extremities. Skin tear, right lower extremity below right knee. Mycotic toenails. Overall toenail are severely overgrown. Objective Labs Result Diagrams: 06/27/19 16:37 06/28/19 00:05 Labs: Laboratory Results - last 24 hr 06/27/19 06/27/19 06/27/19 16:37 16:37 16:37 WBC 12.6 H RBC 5.26 Hgb 15.9 Hct 49.2 MCV 93.5 MCH 30.2 MCHC 32.3 RDW 15.7 H Plt Count 273 Neut % (Auto) 89.3 H Lymph % (Auto) 4.4 L [place] % (Auto) 5.7 Eos % (Auto) 0.0 L Baso % (Auto) 0.6 Neut # (Auto) 69859 H Lymph # (Auto) 600 L [place] # (Auto) 700 Eos # (Auto) 0 Baso # (Auto) 100 PT 11.1 INR 1.0 APTT 32 Sodium Potassium Chloride Carbon Dioxide BUN Creatinine Estimated GFR BUN/Creatinine Ratio Glucose Lactate Calcium Total Bilirubin AST ALT Alkaline Phosphatase Total Creatine Kinase CK-MB (CK-2) CK-MB (CK-2) Rel Index Troponin I B-Natriuretic Peptide Total Protein Albumin Globulin Albumin/Globulin Ratio Lipase Procalcitonin < 0.05 Urine Color Urine Appearance Urine pH Ur Specific [place] Urine Protein Urine Glucose (UA) Urine Ketones Urine Occult Blood Urine Nitrate Urine Bilirubin Urine Urobilinogen Ur Leukocyte Esterase Urine RBC Urine WBC Amorphous Sediment Urine Bacteria Ur Culture Indicated? 06/27/19 06/27/19 06/27/19 16:37 16:37 16:37 WBC RBC Hgb Hct MCV MCH MCHC RDW Plt Count Neut % (Auto) Lymph % (Auto) [place] % (Auto) Eos % (Auto) Baso % (Auto) Neut # (Auto) Lymph # (Auto) [place] # (Auto) Eos # (Auto) Baso # (Auto) PT INR APTT Sodium 143 Potassium 4.3 Chloride 105 Carbon Dioxide 18 L BUN 24 H Creatinine 1.20 Estimated GFR 58.0 L BUN/Creatinine Ratio 20.0 Glucose 232 H Lactate 3.0 H Calcium 9.8 Total Bilirubin 1.4 H AST 69 H ALT 21 Alkaline Phosphatase 147 H Total Creatine Kinase 1028 H CK-MB (CK-2) 12.80 H CK-MB (CK-2) Rel Index 1.2 L Troponin I 0.082 H B-Natriuretic Peptide Total Protein 8.2 Albumin 4.7 Globulin 3.5 Albumin/Globulin Ratio 1.3 Lipase 41 Procalcitonin Urine Color Urine Appearance Urine pH Ur Specific [place] Urine Protein Urine Glucose (UA) Urine Ketones Urine Occult Blood Urine Nitrate Urine Bilirubin Urine Urobilinogen Ur Leukocyte Esterase Urine RBC Urine WBC Amorphous Sediment Urine Bacteria Ur Culture Indicated? 06/27/19 06/27/19 06/27/19 16:37 17:50 19:06 WBC RBC Hgb Hct MCV MCH MCHC RDW Plt Count Neut % (Auto) Lymph % (Auto) [place] % (Auto) Eos % (Auto) Baso % (Auto) Neut # (Auto) Lymph # (Auto) [place] # (Auto) Eos # (Auto) Baso # (Auto) PT INR APTT Sodium Potassium Chloride Carbon Dioxide BUN Creatinine Estimated GFR BUN/Creatinine Ratio Glucose Lactate 1.7 Calcium Total Bilirubin AST ALT Alkaline Phosphatase Total Creatine Kinase CK-MB (CK-2) CK-MB (CK-2) Rel Index Troponin I B-Natriuretic Peptide 444 H Total Protein Albumin Globulin Albumin/Globulin Ratio Lipase Procalcitonin Urine Color Yellow Urine Appearance Clear Urine pH 6.5 Ur Specific [place] 1.015 Urine Protein Trace H Urine Glucose (UA) Negative Urine Ketones Negative Urine Occult Blood 1+ H Urine Nitrate Negative Urine Bilirubin Negative Urine Urobilinogen 0.2 Ur Leukocyte Esterase Negative Urine RBC 1-5/hpf Urine WBC None seen Amorphous Sediment 2+ Urine Bacteria None seen Ur Culture Indicated? Cult not indicated Assessment & Plan Assessment & Plan narrative: Traumatic rhabdomyolysis, acute, present on admission, active - Initial CK 1028. Mild CLAUDE (Cr 1.2) - IVF - Trend CK level - Hold VEST BUSHELER atorvastatin (off note, patient has not taken this med for 2 weeks) CLAUDE, present on admission, active - IVF - Trend renal function w/ routine lab - Avoid nephrotoxic agents - Optimize renal perfusion, avoid hypotension Myocardial Infarction Type II, acute, present on admission, active Suspected to be a sequela of an acute fall, rhabdomyolysis, and CLAUDE; however, ACS cannot be ruled out at this time. Found to be in AFIB, new onset ? Lactate 3 on admission, improving w/ hydration. - No active CP, dyspnea, or palpitations - New onset AFIB, currently rate controlled. - Trop elevated 0.082, trend - Repeat EKG in am - Give ASA 325 mg tonight, continue ASA 81 mg daily - Consider a stress test when medically stable - Risk stratify. FLP and A1C Leukocytosis, acute, present on admission, active - active infection vs reactive (s/p trauma / rhabdo) - UA negative for cystitis. XR unremarkable. - lactate 3 -> improved w/ IVF - Mild claude - Metabolic encephalopathy, not entirely clear, baseline cognitive function is unknown, GCS 15, forgetful w/o no overt focal or cognitive deficity DDx, concern for underlying dementia vs acute cerebrovascular process (in lieu of underlying / new afib) New onset atrial fibrillation, rate controlled, active - New onset ? Duration unknown. No prior reported or documented history in available records. Will ask PCP for records. - EKG, Tele monitoring - Echo in am - Trend and replete electrolytes; maintain K > 4 and Mg >2 - Check TSH, Mg - Resume VEST BUSHELER carvedilol 25 mg BID w/ hold parameters (hold for SBP < 110 and HR < 60) Scrotal pain, acute, no reported trauma, present on admission, active Etiology not entirely clear. Epididymitis vs. Testicular Torsion... Orchitis less likely Scrotal pain with edema and reported lower urinary tract symptoms. No reported trauma. - Elevate, monitor closely - Scrotal ultrasound in am - Scrotal lesions, draining, obtain wound culture - Start on levofloxacin 500 mg daily x10 days, first dose on 06/28. 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 No mention of prior fractures. - per CT pelvis, small buckle fracture of the medial left acetabular cortex without overlying soft tissue thickening. Fracture presumed to be acute (no prior pelvic CT to compare, however record of XR of hip in April 2019 w/o findings of a fracture). Also, recently having multiple recurrent falls. - pain control with... Tylenol 650 mg Q6H prn (mild pain, 1-3) Oxy IR 5 mg Q4H prn (moderate pain, 4-6) Morphine 2 mg IV Q4H (severe pain, 7-10, or break through pain) - consult orthopedic surgery in am (have not been contacted) BPH w/ LUTS, chronic condition, present on admission, active - Restart VEST BUSHELER regime of terazosin (has been off med for 2 weeks) Hypothyroidism, chronic condition, present on admission, active - Check TSH - Previously on levothyroxine 112 mcg daily, resume VEST BUSHELER regimen Physical Deconditioning, subacute and progressive, present on admission, active - consult PT, eval/treat re: physical deconditioning - consult OT, eval/treat re: decreased ability to partake in ADLs - Bedrest tonight. Advance activity as tolerated per PT Prolonged QTC, acute, present on admission, active - Asymptomatic. Repeat EKG in a.m. Code status discussed. Patient is undecided in regard to the code status. Will make him a full code, will need to revisit with on 06/28/2019. Patient does designated his as a surrogate decision maker. VTE prophylaxis with SCDs. Home medications reviewed and reconciled accordingly. Quality VTE Deep Vein Thrombosis/Pulmonary Embolism Present on Admission: No
[2019-06-28] VITALS (11 sets, daily range): BP systolic 106–161; BP diastolic 56–81; PULSE 47–76; RESP 13–18; TEMP 36.2–36.8; O2SAT 94–98
[2019-06-28 00:32] LABS: Alanine Aminotransferase 25 IU/L (21-72); Albumin 3.3 g/dL (3.5-5.0); Albumin Globulin Ratio 1.1 (1.0-2.8); Alkaline Phosphatase 89 U/L (38-126); Aspartate Aminotransferase 47 IU/L (17-59); BUN Creatinine Ratio 23.3 (6-22); Bilirubin Total 0.9 mg/dL (0.2-1.3); Blood Urea Nitrogen 21 mg/dL (9-20); Calcium 8.6 mg/dL (8.4-10.2); Carbon Dioxide 28 mmol/L (22-32); Chloride 109 mmol/L (98-107); Creatine Kinase 605 U/L (55-170); Estimated Glomerular Filt Rate > 60.0 mL/min (>60); Globulin 2.9 g/dL (1.7-4.1); Glucose 99 mg/dL (80-110); HEMOLYSIS < 15 (0-50); Potassium 3.8 mmol/L (3.4-5.1); Sodium 141 mmol/L (137-145); Total Protein 6.2 g/dL (6.3-8.2)
[2019-06-28 00:33] LABS: Magnesium 2.1 mg/dL (1.6-2.3)
[2019-06-28 00:44] LABS: Troponin I 0.094 ng/mL (0.01-0.034)
[2019-06-28] MEDS: POTASSIUM CHLORIDE 20 MEQ TAB PO (01:28)
[2019-06-28] MEDS: SODIUM CHLORIDE 0.9% 1,000 ML 100 ML IV ×3 (01:28→20:27)
[2019-06-28] MEDS: OXYCODONE IR 5 MG TABLET PO ×2 (01:28→21:08)
[2019-06-28 01:30] LABS: Free T4, Direct Thyroxine 0.78 ng/dL (0.78-2.19)
[2019-06-28] MEDS: ASPIRIN 325 MG TABLET PO (02:23)
[2019-06-28] MEDS: levoFLOXacin 500 MG/100 ML PIGGYBACK 100 MG IV (03:02)
--- NOTE | 2019-06-28 05:57 | PC.NURSE ---
Addendum entered by Erica Guadalupe R.N. 06/28/19 06:51: Pt appears to possibly have a little bit of a swallowing issue. It seems more of a concentration problem. When he concentrates it seems he can swallow fine, but then when asked to drink a bit more water he's taking in a bit of air and clearing his throat and letting out a cough. Reported to MADIHA Gomez who suggested keeping pt NPO for now. Original Note: Pt is AxOx3 although forgetful, asking the same questions repeatedly. Pt has a left hip fracture, very painful for him to be positioned. Oxycodone 5mg given. Pt has some draining lesions on his scrotum; Wound culture taken and sent. Scrotum is red and swollen as well, elevated overnight. The Glans of the penis is also very swollen, and painful for patient. Looks almost blanched. MADIHA Gomez came to bedside to evaluate. Ultrasound of scrotum ordered. Coates patent with clear yellow urine. Troponins elevated. Next draw due after 0600. Denies chest pain/pressure/palpitations. Tele: Afib Foam dressing and xeroform placed on Right knee skin tear from fall at home.
--- NOTE | 2019-06-28 06:00 | DI.US.S_ITS ---
PROCEDURE: US SCROTUM INDICATIONS: SCROTAL EDEMA, PAIN TECHNIQUE: Real-time scanning was performed of the scrotum and testicles, with image documentation. Color and pulse Doppler interrogation was performed of both testicles. COMPARISON: None. FINDINGS: Right: Testicle is normal in size at 3.8 x 2.6 x 3.1 cm, and homogenous in echotexture. Epididymis is normal in overall size and morphology. No hydrocele or varicoceles. Overlying scrotal skin is mildly thickened. There is fat and bowel within the right hemiscrotum. Left: Testicle is normal in size at 3.9 x 2.4 x 2.7 cm, and homogeneous in echotexture. Epididymis is normal in overall size and morphology. No hydrocele or varicoceles. Overlying scrotal skin is normal in thickness. Doppler: Color and pulse Doppler demonstrate normal and symmetric arterial flow in both testicles. IMPRESSION: 1. Normal testicles bilaterally. 2. Minimal right scrotal wall thickening measuring 7.0 mm 3. Bowel and fat within the right hemiscrotum suggesting right inguinal hernia. If indicated, CT could be performed for further assessment. Dictated by: Oskar BORREGO Interpreted: Lorna Monsalve MD on 06/28/2019 at 11:39 Approved by: Lorna Monsalve M.D. on 06/28/2019 at 13:43
--- NOTE | 2019-06-28 06:00 | DI.ECHO.S_ITS ---
[facility] +---------+ : : [address] : [place] : : : : [id number] : : : : Phone: [phone]+ Echocardiogram Report + + :Name: ALAINA BRUNO Study Date: 06/28/2019 Height: 70 in : :[facility] Weight: 170 lb : : Gender: Male BSA: 1.9 m2 : :: 1935 Age: 83 yrs BP: 106/56 mmHg: :Reason For Study: Atrial fibrillation : : Performed By: Elsa Hunter : :Referring: MOHIT PETERSEN : + + Interpretation Summary 1) Normal left ventricular size, wall motion, and systolic function (EF 60- 65%). 2) Grossly, normal right ventricular size and function. 3) The left atrium is severely dilated. 4) There is moderate aortic stenosis (valve area 1.4cm2, mean gradient 12mmHg, severity ratio 0.39). 5) No prior Echo available for comparison. Procedure: A two-dimensional transthoracic echocardiogram with color flow and Doppler was performed. The study quality was technically adequate. There is no prior echocardiogram noted for this patient. The patient was in atrial fibrillation with heart rates between 72-83 bpm during the exam. Left Ventricle: The left ventricle is normal in size. Left ventricular wall thickness is at the upper limits of normal. The ejection fraction is estimated to be 60-65%. Left ventricular systolic function is normal without focal wall motion abnormalities. Diastolic function could not be accurately assessed due to atrial fibrillation. Right Ventricle: The right ventricle grossly appears normal in size with probable normal systolic function. Atria: The left atrium is severely dilated. Right atrial size is normal. The interatrial septum is intact with no evidence for an atrial septal defect. Mitral Valve: The mitral valve leaflets are mildly calcified. There is moderate mitral annular calcification. There is trace mitral regurgitation. Aortic Valve: The calculated aortic valve area is 1.4 cm2. The peak aortic velocity is 2.4 m/sec. The aortic valve mean gradient is 12 mmHg. Severity ratio is 0.39. There is moderate aortic stenosis. No aortic regurgitation is present. Tricuspid Valve: The tricuspid valve leaflets are thickened and/or calcified, but open well. No tricuspid regurgitation. Pulmonary artery pressures cannot be estimated because of the lack of a measurable TR jet velocity. Pulmonic Valve: The pulmonic valve is not well seen, but is grossly normal. There is no pulmonic valvular regurgitation. Great Vessels: The aortic root is normal size. The ascending aorta could not be visualized. The aortic arch is normal in size. The IVC is dilated (diameter is greater than 2.1 cm) yet it collapses greater than 50% with a sniff. This suggests a right atrial pressure of 8 mm Hg. Pericardium/ Pleura There is no pericardial effusion. There is no pleural effusion. MMode/2D Measurements & Calculations LVIDd: 4.5 cm LVOT diam: 2.1 cm LVIDs: 2.9 cm Ao root diam: 3.5 cm FS: 36.0 % Aortic Jxn: 2.8 cm EPSS: 0.00 cm Ao Arch Diam (Prox Trans): 2.6 cm IVSd: 1.0 cm LVPWd: 1.1 cm LV wallace. diameter/BSA (cm/m^2): 2.3 LV sys. diameter/BSA (cm/m^2): 1.5 LA dimension: 5.1 cm RA long axis: 6.2 cm LA A2 area: 28.1 cm2 RA area: 21.7 cm2 LA A4 area: 28.6 cm2 RA vol: 64.8 ml LA length (vol): 6.0 cm RA : 33.2 ml/m2 LA vol: 113.7 ml IVC diam: 2.4 cm LA vol index: 58.3 ml/m2 Doppler Measurements & Calculations Ao V2 max: 236.3 cm/sec LVOT Max Eramso: 95.2 cm/sec Ao V2 mean: 164.4 cm/sec LV V1 max P.6 mmHg Ao max P.3 mmHg LV V1 VTI: 17.6 cm Ao mean P.4 mmHg TRACEE(I,D): 1.3 cm2 Ao V2 VTI: 44.7 cm TRACEE(V,D): 1.4 cm2 sev ratio: 0.39 TRACEE indexed to BSA (cm^2/m^2): 0.68 MV E max erasmo: 67.0 cm/sec PA V2 max: 103.7 cm/sec MV A max erasmo: 35.3 cm/sec PA V2 mean: 58.5 cm/sec MV E/A: 1.9 PA mean P.9 mmHg Med Peak E' Erasmo: 8.4 cm/sec PA Accel Time: 0.13 sec E/E' med: 8.0 Lat Peak E' Erasmo: 11.0 cm/sec E/E' lat: 6.1 E/e' average: 7.0 MV dec time: 0.18 sec MV P1/2t: 49.6 msec MV P1/2t max erasmo: 67.4 cm/sec SV(LVOT): 59.4 ml ALIS(P1/2t): 4.4 cm2 Reading Physician:01:11 PM
[2019-06-28 07:44] LABS: Alanine Aminotransferase 22 IU/L (21-72); Albumin 3.2 g/dL (3.5-5.0); Albumin Globulin Ratio 1.2 (1.0-2.8); Alkaline Phosphatase 82 U/L (38-126); Aspartate Aminotransferase 46 IU/L (17-59); BUN Creatinine Ratio 22.2 (6-22); Bilirubin Total 0.8 mg/dL (0.2-1.3); Blood Urea Nitrogen 20 mg/dL (9-20); Calcium 8.5 mg/dL (8.4-10.2); Carbon Dioxide 26 mmol/L (22-32); Chloride 111 mmol/L (98-107); Creatine Kinase 477 U/L (55-170); Estimated Glomerular Filt Rate > 60.0 mL/min (>60); Globulin 2.7 g/dL (1.7-4.1); Glucose 95 mg/dL (80-110); HEMOLYSIS < 15 (0-50); Potassium 3.9 mmol/L (3.4-5.1); Sodium 141 mmol/L (137-145); Total Protein 5.9 g/dL (6.3-8.2)
[2019-06-28 07:54] LABS: Troponin I 0.077 ng/mL (0.01-0.034)
--- NOTE | 2019-06-28 08:22 | PM.CN ---
History of Present Illness Consult details Date Patient Seen: 06/28/19 Time Patient Seen: 08:22 Chief complaint: UTI, Fall Reason for consult: L hip pain Requesting provider: Travis Maddox Narrative: 83-year-old male who was admitted with failure to thrive and rhabdomyolysis. He has evidently been deteriorating over the past month and has had several falls. He had 2 falls yesterday and was unable to get up on his own. He normally walks with a cane but has severe pain in the left hip with ambulation. The right hip is also quite painful. It hurts to weight bear and move. He has also been having significant pain and swelling in the scrotum with burning in his urination. He has had confusion recently per family. Not taking his medications nor going to his doctor's appointments. [facility] Medical History Ankylosis, left hip (Chronic) Muhammad esophagus (Chronic) Essential hypertension (Chronic) Folate deficiency (Chronic) Hyperlipidemia (Chronic) Hypothyroidism (Chronic) Vitamin B12 deficiency (Chronic) Social History household members: spouse Smoking Status: Former smoker alcohol intake: never Meds Home Medications and Allergies Home Medications Medication Instructions Recorded Confirmed Type acetaminophen 500 - 1,000 mg PO Q6H PRN 06/27/19 06/27/19 History amlodipine 5 mg PO DAILY 06/27/19 06/27/19 History aspirin 81 mg PO DAILY 06/27/19 06/27/19 History atorvastatin 80 mg PO BEDTIME 06/27/19 06/27/19 History carvedilol 25 mg PO BID 06/27/19 06/27/19 History cholecalciferol (vitamin D3) 4,000 unit PO DAILY 06/27/19 06/27/19 History [Vitamin D3] cyanocobalamin (vitamin B-12) 2,500 mcg SUBLINGUAL DAILY 06/27/19 06/27/19 History [Vitamin B-12] levothyroxine 112 mcg PO DAILY 06/27/19 06/27/19 History metformin 500 mg PO BID 06/27/19 06/27/19 History omega-3 fatty acids-fish oil [Fish 1 cap PO 3XW 06/27/19 06/27/19 History Oil] omeprazole 20 mg PO DAILY 06/27/19 06/27/19 History ramipril 10 mg PO DAILY 06/27/19 06/27/19 History terazosin 2 mg PO DAILY 06/27/19 06/27/19 History Allergies Allergy/AdvReac Type Severity Reaction Status Date / Time No Known Drug Allergies Allergy Verified 05/17/18 07:54 Review of Systems Constitutional Constitutional: Reports frequent falls Cardiovascular Cardiovascular: Denies chest pain Respiratory Respiratory: Denies cough and Denies wheezing Gastrointestinal Gastrointestinal: Denies change in bowel habits Genitourinary Genitourinary: Reports dysuria Musculoskeletal Musculoskeletal: Reports abnormal gait Integumentary/Breasts Skin/Breast: Reports lesions (Into the scrotum) Neurologic Neurologic: Reports abnormal gait, Reports confusion and Reports frequent falls Psychiatric Psychiatric: Reports confusion Endocrine Endocrine: Denies change in body appearance Hematologic/Lymphatic Hematologic/Lymphatic: Reports easy bruising Allergic/Immunologic Allergic/Immunologic: Denies wheezing Exam Vital Signs (past 8 hours): - 06/28/19 03:43 06/28/19 04:47 Temperature 97.7 F Pulse Rate 69 Respiratory Rate 16 Blood Pressure 161/79 H Pulse Oximetry 95 95 Oxygen Delivery Method Room Air Const Orientation: alert, awake, oriented to person and oriented to place Resp Auscultation: clear to auscultation bilaterally Cardio Rate: regular rate Rhythm: regular rhythm Extrem Other: Right hip able to flex 45? but gets severe pain with this. 0 internal rotation 10? external rotation easily wiggles toes, 1+ distal pulse. Left hip pain with any attempted flexion or log-rolling rotation. Easily wiggles toes, 1+ distal pulse, intact sensation distally. 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 Even were severe degenerative arthritis of the left hip with complete flattening of the head, overlapping osteophytes, and some medial protrusio verses small buckle fracture on the medial aspect of the acetabular Labs Result Diagrams: 06/27/19 16:37 06/28/19 06:48 Labs: Laboratory Results - last 24 hr 06/27/19 06/27/19 06/27/19 16:37 16:37 16:37 WBC 12.6 H RBC 5.26 Hgb 15.9 Hct 49.2 MCV 93.5 MCH 30.2 MCHC 32.3 RDW 15.7 H Plt Count 273 Neut % (Auto) 89.3 H Lymph % (Auto) 4.4 L [place] % (Auto) 5.7 Eos % (Auto) 0.0 L Baso % (Auto) 0.6 Neut # (Auto) 81513 H Lymph # (Auto) 600 L [place] # (Auto) 700 Eos # (Auto) 0 Baso # (Auto) 100 PT 11.1 INR 1.0 APTT 32 Sodium Potassium Chloride Carbon Dioxide BUN Creatinine Estimated GFR BUN/Creatinine Ratio Glucose Lactate Calcium Magnesium Total Bilirubin AST ALT Alkaline Phosphatase Total Creatine Kinase CK-MB (CK-2) CK-MB (CK-2) Rel Index Troponin I B-Natriuretic Peptide Total Protein Albumin Globulin Albumin/Globulin Ratio Lipase Procalcitonin < 0.05 TSH Free T4 Urine Color Urine Appearance Urine pH Ur Specific [place] Urine Protein Urine Glucose (UA) Urine Ketones Urine Occult Blood Urine Nitrate Urine Bilirubin Urine Urobilinogen Ur Leukocyte Esterase Urine RBC Urine WBC Amorphous Sediment Urine Bacteria Ur Culture Indicated? 06/27/19 06/27/19 06/27/19 16:37 16:37 16:37 WBC RBC Hgb Hct MCV MCH MCHC RDW Plt Count Neut % (Auto) Lymph % (Auto) [place] % (Auto) Eos % (Auto) Baso % (Auto) Neut # (Auto) Lymph # (Auto) [place] # (Auto) Eos # (Auto) Baso # (Auto) PT INR APTT Sodium 143 Potassium 4.3 Chloride 105 Carbon Dioxide 18 L BUN 24 H Creatinine 1.20 Estimated GFR 58.0 L BUN/Creatinine Ratio 20.0 Glucose 232 H Lactate 3.0 H Calcium 9.8 Magnesium Total Bilirubin 1.4 H AST 69 H ALT 21 Alkaline Phosphatase 147 H Total Creatine Kinase 1028 H CK-MB (CK-2) 12.80 H CK-MB (CK-2) Rel Index 1.2 L Troponin I 0.082 H B-Natriuretic Peptide Total Protein 8.2 Albumin 4.7 Globulin 3.5 Albumin/Globulin Ratio 1.3 Lipase 41 Procalcitonin TSH Free T4 Urine Color Urine Appearance Urine pH Ur Specific [place] Urine Protein Urine Glucose (UA) Urine Ketones Urine Occult Blood Urine Nitrate Urine Bilirubin Urine Urobilinogen Ur Leukocyte Esterase Urine RBC Urine WBC Amorphous Sediment Urine Bacteria Ur Culture Indicated? 06/27/19 06/27/19 06/27/19 16:37 17:50 19:06 WBC RBC Hgb Hct MCV MCH MCHC RDW Plt Count Neut % (Auto) Lymph % (Auto) [place] % (Auto) Eos % (Auto) Baso % (Auto) Neut # (Auto) Lymph # (Auto) [place] # (Auto) Eos # (Auto) Baso # (Auto) PT INR APTT Sodium Potassium Chloride Carbon Dioxide BUN Creatinine Estimated GFR BUN/Creatinine Ratio Glucose Lactate 1.7 Calcium Magnesium Total Bilirubin AST ALT Alkaline Phosphatase Total Creatine Kinase CK-MB (CK-2) CK-MB (CK-2) Rel Index Troponin I B-Natriuretic Peptide 444 H Total Protein Albumin Globulin Albumin/Globulin Ratio Lipase Procalcitonin TSH Free T4 Urine Color Yellow Urine Appearance Clear Urine pH 6.5 Ur Specific [place] 1.015 Urine Protein Trace H Urine Glucose (UA) Negative Urine Ketones Negative Urine Occult Blood 1+ H Urine Nitrate Negative Urine Bilirubin Negative Urine Urobilinogen 0.2 Ur Leukocyte Esterase Negative Urine RBC 1-5/hpf Urine WBC None seen Amorphous Sediment 2+ Urine Bacteria None seen Ur Culture Indicated? Cult not indicated 06/28/19 06/28/19 06/28/19 00:05 00:05 00:05 WBC RBC Hgb Hct MCV MCH MCHC RDW Plt Count Neut % (Auto) Lymph % (Auto) [place] % (Auto) Eos % (Auto) Baso % (Auto) Neut # (Auto) Lymph # (Auto) [place] # (Auto) Eos # (Auto) Baso # (Auto) PT INR APTT Sodium 141 Potassium 3.8 Chloride 109 H Carbon Dioxide 28 BUN 21 H Creatinine 0.90 Estimated GFR > 60.0 BUN/Creatinine Ratio 23.3 H Glucose 99 D Lactate Calcium 8.6 Magnesium 2.1 Total Bilirubin 0.9 AST 47 ALT 25 Alkaline Phosphatase 89 D Total Creatine Kinase 605 H D CK-MB (CK-2) CK-MB (CK-2) Rel Index Troponin I 0.094 H B-Natriuretic Peptide Total Protein 6.2 L Albumin 3.3 L Globulin 2.9 Albumin/Globulin Ratio 1.1 Lipase Procalcitonin TSH 11.60 H Free T4 0.78 Urine Color Urine Appearance Urine pH Ur Specific [place] Urine Protein Urine Glucose (UA) Urine Ketones Urine Occult Blood Urine Nitrate Urine Bilirubin Urine Urobilinogen Ur Leukocyte Esterase Urine RBC Urine WBC Amorphous Sediment Urine Bacteria Ur Culture Indicated? 06/28/19 06:48 WBC RBC Hgb Hct MCV MCH MCHC RDW Plt Count Neut % (Auto) Lymph % (Auto) [place] % (Auto) Eos % (Auto) Baso % (Auto) Neut # (Auto) Lymph # (Auto) [place] # (Auto) Eos # (Auto) Baso # (Auto) PT INR APTT Sodium 141 Potassium 3.9 Chloride 111 H Carbon Dioxide 26 BUN 20 Creatinine 0.90 Estimated GFR > 60.0 BUN/Creatinine Ratio 22.2 H Glucose 95 Lactate Calcium 8.5 Magnesium 2.0 Total Bilirubin 0.8 AST 46 ALT 22 Alkaline Phosphatase 82 Total Creatine Kinase 477 H CK-MB (CK-2) CK-MB (CK-2) Rel Index Troponin I 0.077 H B-Natriuretic Peptide Total Protein 5.9 L Albumin 3.2 L Globulin 2.7 Albumin/Globulin Ratio 1.2 Lipase Procalcitonin TSH Free T4 Urine Color Urine Appearance Urine pH Ur Specific [place] Urine Protein Urine Glucose (UA) Urine Ketones Urine Occult Blood Urine Nitrate Urine Bilirubin Urine Urobilinogen Ur Leukocyte Esterase Urine RBC Urine WBC Amorphous Sediment Urine Bacteria Ur Culture Indicated? Assessment & Plan Assessment & Plan narrative: He was admitted with failure to thrive in rhabdomyolysis after falls and being unable to get up. With respect to his hips, he has severe bilateral hip arthritis, much worse on the left. I do not think this is an acute fracture, I think this is most likely just protrusio from advanced severe arthritis. Either way, I would not treat him differently, he may be weight bear as tolerated on both hips, although he is very limited in his ambulation. He should get up with physical therapy and use a walker for ambulatory assistance. At some point in the future, I think he could benefit from elective total hip replacement on either side. However, this is not something that would be addressed while an inpatient for this hospitalization. It is elective surgery and not an emergency. He has no interest in surgery with his age but I did explain it could possibly something to consider in the future if he is medically more stable but again, not something to address while hospitalized at this point. He can follow up in our office electively in the future for evaluation of this. No further orthopedic follow-up required during this hospitalization.
[2019-06-28 08:31] LABS: Hemoglobin A1C% w Est Avg Glu 5.9 % (4.0-6.0)
[2019-06-28] MEDS: TERAZOSIN 1 MG CAPSULE 2 MG PO (10:50)
[2019-06-28] MEDS: LEVOTHYROXINE 112 MCG TABLET PO (10:51)
[2019-06-28] MEDS: CARVEDILOL 25 MG TABLET PO ×2 (10:51→20:27)
--- NOTE | 2019-06-28 11:40 | PT.IIE ---
Medical History (Last Reviewed 06/28/19 @ 08:23 by Toni Christine MD) Ankylosis, left hip (Chronic) Muhammad esophagus (Chronic) Essential hypertension (Chronic) Folate deficiency (Chronic) Hyperlipidemia (Chronic) Hypothyroidism (Chronic) Vitamin B12 deficiency (Chronic) Physical Therapy Inpatient Evaluation/Re-Eval M1 PT/OT-IP Prior Functional Status Start: 06/28/19 12:37 Freq: NEEDED Status: Active Protocol: Document 06/28/19 11:40 AB (Rec: 06/28/19 12:57 AB [id number]) Medical Review Prior Functional Status Medical History Reviewed Yes Communication able to make needs known; pt has confusion Mobility and Gait pt stated that he is modified independent with all mobilities and ambulation using SPC (pt's daughter came in end of PT session with his cane: a quad cane) Social History Household Members spouse Living Arrangements House Number of Floors (Floors) One Floor Number of Stairs To Enter/Railing? 1 step to enter Home Environment Walk in Shower Home Equipment Quad Cane,Hand Held Shower, Grab Bars Near Toilet,Grab Bars In Shower M2 PT-IP Current Condition Start: 06/28/19 12:37 Freq: NEEDED Status: Active Protocol: Document 06/28/19 11:40 AB (Rec: 06/28/19 12:57 AB [id number]) Physical Therapy Current Condition Current Condition Evaluation Date 06/28/19 Treatment Diagnosis s/p fall; rhabdomyolysis; difficulty in walking Onset Date 06/27/19 Precautions Other Precautions falls Weight Bearing Status Weight Bearing Status Weight Bear as Tolerated M3 PT-IP Subjective Start: 06/28/19 12:37 Freq: NEEDED Status: Active Protocol: Document 06/28/19 11:40 AB (Rec: 06/28/19 12:57 AB [id number]) Subjective Physical Therapy Visit Type Type Initial Evaluation Visit Start Time 11:40 Visit Stop Time 12:30 Total Visit Minutes 50 Number of [employer]AL [employer]NER Visits 0 Physical Therapy Visit Comments Patient Comments pt initially refusing but agreed to do PT after education Therapy Pain Assessment Pain When Pain Assessed At Rest Pain Present Pain Present Pain Reported Location Left Hip Scale Used pain scale not stated Pain Behaviors Calling Out,Guarding,Holding Area,Moaning,Wincing Pain Management Techniques Distraction,Re-positioning, Timing of Activity with Medications M4 PT-IP Mobility and Gait Start: 06/28/19 12:37 Freq: NEEDED Status: Active Protocol: Document 06/28/19 11:40 AB (Rec: 06/28/19 12:57 AB [id number]) PT-Bed Mobility Assessment Supine to Sit Supine to Sit Total Assistance,2 Person Assistance,Head of Bed Elevated,Bedrails Scooting Scooting to Edge of Bed Dependent PT-Transfer Assessment Sit to and From Stand Sit to and from Stand Maximum Assistance,2 Person Assistance,Use of Upper Extremities Equipment Transfer Assistive Device Gait Belt,Front Wheeled Walker Orthotic/Prosthetic Devices or Brace: No Transfers Transfer Destination Chair Transfer Technique Stand Step Pivot Transfer Ability Level of Assist Maximum Assistance Comments Mobility Comments pt c/o L hip pain with light touch. completed ROM and pt able to move LLE with less pain. completed bed mobility supine to sit HOB elevated total Ax 2 and max cues. initially requiring max A x 2 to maintain sitting balance on EOB with increase posterior trunk leaning. positioned pt and cued to lean forward. able to sit on EOB CGA to min A afterwards. completed sit to stand x 2 attempts max A x 2 and max cues. pt can be resistive and requires max cues. completed stand step transfer to the chair using FWW max A x 2 and max cues. positioned pt on the chair. call light and table placed within reach. Gait Assessment Comments Gait Comments unable at this time; able to take a few steps during transfers. PT-Balance Assessment Sitting Balance and Reactions Static Sitting Balance Ability Fair Dynamic Sitting Balance Ability Poor Standing Balance and Reactions Static Standing Balance Ability Poor Dynamic Standing Balance Ability Poor Device Used FWW M5 PT-IP Objective Assessments Start: 06/28/19 12:37 Freq: NEEDED Status: Active Protocol: Document 06/28/19 11:40 AB (Rec: 06/28/19 12:57 AB [id number]) Orientation Orientation/Cognition Level of Alertness Confusional State Orientation Name Language Function Ability Hard of Hearing Safety Awareness Decreased Safety Awareness Memory Description Short Term Impaired,Senior Living Impaired Strength Upper Extremity Strength Assessment Left Impaired Lower Extremity Strength Assessment Bilaterally Impaired Comments Strength Comments LLE: increase muscle guarding during ROM and unable to fully assess LLE: grossly graded: 3-/5 RLE: 3+/5 Sensation Assessment Sensation Gross Sensation WNL Muscle Tone Muscle Tone WNL Yes M6 PT-IP Treatment Start: 06/28/19 12:37 Freq: NEEDED Status: Active Protocol: Document 06/28/19 11:40 AB (Rec: 06/28/19 12:57 AB [id number]) Physical Therapy Treatment Exercises Exercises Ankle Pumps,Heel Slides Education Education Provided Safety M7 PT-IP Assessment and Plan Start: 06/28/19 12:37 Freq: NEEDED Status: Active Protocol: Document 06/28/19 11:40 AB (Rec: 06/28/19 12:57 AB [id number]) PT Summary Assessment and Plan Potential Rehabilitation Potential Fair Status of Condition at Evaluation Evolving Summary Impairments Pain,ROM,Strength,Balance, Coordination,Sensation,Tone, Cognition,Bed Mobility, Transfers,Gait,Activity Tolerance Assessment Summary Pt came in after a fall. c/o L hip pain but with negative imaging result. ortho consult stated L hip arthritis and pt is WBAT. pt requiring max A x 2 to total A x 2 with mobility at this time and will need SNF rehab to improve strength and functional mobility. Goals Bed Mobility Goal Minimal Assistance Transfer Goal Minimal Assistance,Front Wheeled Walker Gait Goal Minimal Assistance,Front Wheel Walker Gait Distance 50 Days to Meet Goals 10 Frequency of Treatment Frequency Of Treatment Once a Day Treatment Plan Physical Therapy Treatment Plan Bed Mobility Training,Transfer Training,Gait Training, Therapeutic Exercise,Balance Retraining,Post Op Education, Discharge Planning,Hot or Cold Pack,Neuromuscular Re-ed, Coordination Retraining,Manual Therapy Recommendations To Nursing Amount of Assist Needed 2 Person Assist Discharge Recommendations PT Discharge Recommendations SNF Rehab Equipment Needed for Home Before FWW if pt goes home Discharge
[2019-06-28] MEDS: HEPARIN 5,000 UNIT/ML VIAL 5000 UNIT SUBCUT ×2 (13:51→20:27)
--- NOTE | 2019-06-28 14:04 | DIET.PN ---
Addendum entered by [place] 06/29/19 14:05: Pt's POs <70%, initiated Ensure Enlive bid (breakfast/dinner). Will follow for ONS acceptance and I&Os. Original Note: Dietary Note Assessment: Mr. Burnham is a 83 yom admitted for a fall, UTI, and rhabdomyolisis. He has a HX of CAD, HTN, HLD, gallego's esophagus. It was indicated Mr. Burnham was having some difficulty swallowing. During our assessment he was eating lunch with no visible chewing or swallowing issues. He reports a change in appetite for 2 days prior to his admission, but states that has resolved. He also reports intentional weight loss over the last year. HT: 177.8cm WT: 73.5kg UBW: 97.7kg BMI: 23.2 Labs: WBC: 12.6 TCK: 477 alb: 3.2 MNA: 12 Wilman: 14 Nutrition Diagnosis: No nutrition diagnosis at this time. Interventions: 1. Discussed PO's and importance of protein w/ meals. Will monitor PO's for need for ONS if <70%. 2. Discussed food texture. Pt reports no difficulty chewing/swallowing. Cont to monitor for need for diet change. Consider M[facility]IRER consult. Diet Order: General EER: 2200 ellen @ 30 ellen/kg 95 g @ 1.3 g/kg Monitoring/Evaluations: PO's, weight, diet tolerance/need for diet modification, need for ONS ensure.
[2019-06-28 14:31] LABS: Creatine Kinase MB 9.41 ng/mL (<2.37)
--- NOTE | 2019-06-28 14:39 | PC.NURSE ---
0900- Pt is Alert and oriented x2. He had a few falls at home and ended up here at [facility]. He is being treated for a UTI and has a [place] catheter in. Urine color is yellow. Pt also has some issues with his skin. He has skin tear to his r.leg, the head of his penis is red and swollen. The top right of his pubic bone is hard and he has some pustules on his scrotum. There was an ultrasound done and was in to assess pts skin. He also has some redness on his bottom but it is blanchable and not open. Pt up with physical therapy and is a two max assist to get up and also with walker. He was just repositioned as he tried to get up on his own. Chair alarm is in place. Pt is on precautions as cultures from testicle area came back gram positive cocci with rods. Pt is on standard precautions.. He was just repositioned in the chair and seems to be more comfortable. His and daughter were into see patient for a short time. He is on a general diet and denies nausea or vomiting.
[2019-06-28 15:01] LABS: Cholesterol 161 mg/dL (140-199); HDL Cholesterol 41 mg/dL (40-60); LDL Cholesterol Calculated 110 mg/dL (<100); Triglycerides 50 mg/dL (35-150)
--- NOTE | 2019-06-28 16:26 | OT.IP.EVAL ---
Current Diagnoses Traumatic ischemia of muscle, initial encounter (06/27/19) Past Medical History (Last Reviewed 06/28/19 @ 08:23 by Toni Christine MD) Ankylosis, left hip (Chronic) Muhammad esophagus (Chronic) Essential hypertension (Chronic) Folate deficiency (Chronic) Hyperlipidemia (Chronic) Hypothyroidism (Chronic) Vitamin B12 deficiency (Chronic) Occupational Therapy Inpatient Evaluation/Re-Eval M1 PT/OT-IP Prior Functional Status Start: 06/28/19 16:00 Freq: NEEDED Status: Active Protocol: Document 06/28/19 16:01 [facility] (Rec: 06/28/19 16:26 [facility] [id number]) Medical Review Prior Functional Status Medical History Reviewed Yes Communication able to make needs known; pt has confusion Mobility and Gait Per PT note: pt stated that he is modified independent with all mobilities and ambulation using SPC (pt's daughter came in end of PT session with his cane: a quad cane) Social History Household Members spouse Living Arrangements House Number of Floors (Floors) One Floor Number of Stairs To Enter/Railing? 1 step to enter Home Environment Walk in Shower Home Equipment Quad Cane,Hand Held Shower, Grab Bars Near Toilet,Grab Bars In Shower M2 OT-IP Current Condition Start: 06/28/19 16:00 Freq: Status: Active Protocol: Document 06/28/19 16:01 [facility] (Rec: 06/28/19 16:26 [facility] [id number]) Occupational Therapy Current Condition Current Condition Evaluation Date 06/28/19 Treatment Diagnosis Left hip fracture Diagnosis Onset Date 06/27/19 Weight Bearing Status Weight Bearing Status Weight Bear as Tolerated Allowed Weight Bearing Amount (enter % Per consulting surgeon, pt or #) (%) would benefit from total hip replacement but pt not wanting the surgery at this time. M3 OT- IP Subjective and Pain Start: 06/28/19 16:00 Freq: Status: Active Protocol: Document 06/28/19 16:01 [facility] (Rec: 06/28/19 16:26 [facility] [id number]) OT- Subjective Occupational Therapy Visit Type Type Initial Evaluation Visit Start Time 15:20 Visit Stop Time 15:41 Total Visit Minutes 21 Occupational Therapy Visit Comments Patient Comments Pt needing encouragement but agreeable to get back to bed. OT Pain Assessment Pain Present Pain Present Unable to Respond FLACC Pain Scale Face Frequent/constant frown Legs Kicking or drawn up Activity Squirming,shifting Cry Moans/whimpers/complains M4 OT- IP ADL's Start: 06/28/19 16:00 Freq: Status: Active Protocol: Document 06/28/19 16:01 [facility] (Rec: 06/28/19 16:26 [facility] [id number]) OT ADL-Dressing General Eval Lower Body Dressing Ability Total Assistance Areas Needing Assistance Socks Comments OT Dressing Comments Pt dependent for all LB dressing needs at this time. OT ADL-Toileting Comments OT Toileting Comments Pt has [place] and dependent for cleaning while in bed and MAX A to roll to the right use of grab bar and pillow placed between his legs. OT ADL-Bathing Comments OT Bathing Comments Sponge bath more appropriate at this time for pt. M6 OT- IP Functional Cognition Start: 06/28/19 16:00 Freq: Status: Active Protocol: Document 06/28/19 16:01 [facility] (Rec: 06/28/19 16:26 [facility] [id number]) Cognitive Factors Limiting Selfcare Function Cognitive Ability Level of Alertness Alert Patient Orientation Name,Situation Attention Span Ability Capable of Focused Attention, Capable of Sustained Attention Ability to Follow Commands Able to Follow One Step Commands with Increased Time, Able to Follow One Step Commands with Repetition Memory Description Short Term Impaired Cognitive Comments Cognitive Assessment Comments Pt very hard of hearing and needing use of amplified head phones to hear.Due to pt's difficulty to hear , has trouble to comprehand and needing instructions repeated often and step and step instructions to let pt know what to except. OT- Vision and Hearing OT- Hearing Assessment OT- Hearing Assessment Hearing Impaired M7 OT- IP Mobility and Balance Start: 06/28/19 16:00 Freq: Status: Active Protocol: Document 06/28/19 16:01 [facility] (Rec: 06/28/19 16:26 [facility] [id number]) OT- Bed Mobility Assessment Sit to Supine Sit to Supine Assist Total Assistance,2 Person Assistance OT-Transfer Assessment Transfers Transfer Ability Maximum Assistance,2 Person Assistance Technique Transfer Destination Bed,Chair Transfer Technique Squat Pivot Devices Transfer Assistive Devices Gait Belt Comments Mobility Comments Pt needing MAXA to help scoot forwards in the recliner and assist form aid to keep him forwards. Therapist able to transfer to the right with squat pivot transfer while aid able to assist from the back. Total assist from sit to supine. OT- Gait Assessment Comments Gait Ability Comments No ambulation at this time. OT- Balance Assessment Sitting Balance and Reactions Static Sitting Balance Ability Fair Dynamic Sitting Balance Ability Poor M8 OT- IP Objective Assessments Start: 06/28/19 16:00 Freq: Status: Active Protocol: Document 06/28/19 16:01 [facility] (Rec: 06/28/19 16:26 [facility] [id number]) OT Gross Range of Motion Upper Extremity Range of Motion ROM Impairments Not able to fully assess , pt during transfer noted having difficulty to reach up to hold onto therapist's arms during transfer. At least able to raise arm 0-70 for shoulder flexion. OT Strength Comments Strength Comments BUE at least 3-/5. M9 OT- IP Assessment and Plan Start: 06/28/19 16:00 Freq: Status: Active Protocol: Document 06/28/19 16:01 [facility] (Rec: 06/28/19 16:26 [facility] [id number]) OT Summary Assessment and Plan Potential Rehabilitation Potential Fair Analytic Complexity at Evaluation Moderate Summary OT Impairments Pain,Range of Motion,Strength, Balance,Coordination, Functional Cognition, Functional Mobility,Self- Feeding,Grooming,Dressing, Toileting,Bathing,Toilet Transfers,Shower Transfers Progress Towards Goals Slow Progress due to Pain,Slow Progress due to Medical Issues,Slow Progress due to Activity Tolerance,Slow Progress due to Cognition Assessment Summary Pt MOD complexity due to recent fall resulting in left hip fracture, in addition has scrotal pain and edema and now mostly dependent x2 for all ADL and functional mobility needs. Prior pt walking with a quad cane and now just able to tolerate transfer only at this time. Pt far from baseline, not wanting surgery, and will benefit from skilled rehab prior to going home. Pt's current condition requiring too much assist from to care for pt. COntinue to work with OT in acute rehab to improve safety and independence for ADl's and for recommendation for equipment needs. Goals Grooming Goal Standby Assistance Dressing Goal Moderate Assistance Toileting Goal Moderate Assistance Bathing Goal Moderate Assistance Toilet Transfer Goal Minimal Assistance Shower Transfer Goal Moderate Assistance Patient/Caregiver Education Goal Caregiver Independent Assisting Patient Days to Meet Goals 15 Frequency of Treatment Frequency Of Treatment Once a Day Treatment Plan OT Treatment Plan ADL Training,Functional Cognition Training,Functional Mobility,Patient/Family Education,Discharge Planning Other Treatment Recommendations and Next Transfer to BSC MODA X 2 with Treatment Focus FWW. Discharge Recommendations OT Discharge Recommendations SNF Rehab Home Equipment Needs FWW, BSC, shower chair
[2019-06-28] MEDS: ACETAMINOPHEN 325 MG TABLET 650 MG PO (17:20)
--- NOTE | 2019-06-28 22:14 | P.PN_ITS ---
Subjective Subjective Date Patient Seen: 06/28/19 Time Patient Seen: 09:15 Interval history: The patient is an 83-year-old male with PMH of CAD (s/p CABG), HTN, HLD, hypothyroidism, BPH, B12/Folate deficiency, Muhammad's esophagus, and chronic right hip pain. Patient presented to the ED earlier in the day after sustaining a ground level fall. He has scrotal tenderness and pain and well as hip pain, but no other complaints. He had an ultrasound that showed bowel in his hernia but no evidence of abscess. Dr. Christine saw the patient for his hip fracture and he needs an elective hip replacement, but does not need any further management as an inpatient. Patient admitted to or that he had not changed his underwear in 2 weeks. Exam Vital Signs (past 8 hours): - 06/28/19 15:00 06/28/19 16:03 06/28/19 19:00 Temperature 97.3 F L Pulse Rate 47 L Respiratory Rate 18 Blood Pressure 139/73 Pulse Oximetry 95 98 94 06/28/19 19:53 Temperature 97.3 F L Pulse Rate 51 L Respiratory Rate 18 Blood Pressure 143/74 H Pulse Oximetry 97 Oxygen Delivery Method Room Air Oxygen Flow Rate 0 Narrative Exam Narrative: GENERAL APPEARANCE: Chronically ill appearing, frail, no acute distress SKIN: Inspection of the skin reveals only erythema of his scrotum. HEENT: Dry MM, no tongue bite pina or lacerations. NECK: Supple and symmetric. There was no thyroid enlargement, and no tenderness, or masses were felt. CHEST: Normal AP diameter and normal contour without any kyphoscoliosis. LUNGS: Auscultation of the lungs revealed no wheezes, rhonchi, or rales. CARDIOVASCULAR: Irregularly irregular with 2-3/6 systolic murmur. Peripheral pulses were 2+ and symmetric. ABDOMEN: Soft and nontender with normal bowel sounds. No ascites was noted. MUSCULOSKELETAL: There was no tenderness or effusions noted. Muscle strength and tone were normal. EXTREMITIES: No cyanosis, clubbing or edema. Genital: multiple areas of purulent appearing pustules around hair follices. Penis with irritation but no chancre or lymphadenopathy. Tender testicle. Edemat ous scrotum with mild erythema. NEUROLOGIC: Alert and oriented x 3. but significant errors in short term memory and recall. Objective Labs Result Diagrams: 06/27/19 16:37 06/28/19 06:48 Labs: Laboratory Results - last 24 hr 06/28/19 06/28/19 06/28/19 00:05 00:05 00:05 Sodium 141 Potassium 3.8 Chloride 109 H Carbon Dioxide 28 BUN 21 H Creatinine 0.90 Estimated GFR > 60.0 BUN/Creatinine Ratio 23.3 H Glucose 99 D Hemoglobin A1c Calcium 8.6 Magnesium 2.1 Total Bilirubin 0.9 AST 47 ALT 25 Alkaline Phosphatase 89 D Total Creatine Kinase 605 H D CK-MB (CK-2) CK-MB (CK-2) Rel Index Troponin I 0.094 H Total Protein 6.2 L Albumin 3.3 L Globulin 2.9 Albumin/Globulin Ratio 1.1 Triglycerides Cholesterol LDL Cholesterol, Calc HDL Cholesterol TSH 11.60 H Free T4 0.78 06/28/19 06/28/19 06/28/19 06:48 06:48 06:48 Sodium 141 Potassium 3.9 Chloride 111 H Carbon Dioxide 26 BUN 20 Creatinine 0.90 Estimated GFR > 60.0 BUN/Creatinine Ratio 22.2 H Glucose 95 Hemoglobin A1c 5.9 Calcium 8.5 Magnesium 2.0 Total Bilirubin 0.8 AST 46 ALT 22 Alkaline Phosphatase 82 Total Creatine Kinase 477 H CK-MB (CK-2) 9.41 H CK-MB (CK-2) Rel Index 2.0 Troponin I 0.077 H Total Protein 5.9 L Albumin 3.2 L Globulin 2.7 Albumin/Globulin Ratio 1.2 Triglycerides 50 Cholesterol 161 LDL Cholesterol, Calc 110 H HDL Cholesterol 41 TSH Free T4 Assessment & Plan Assessment & Plan narrative: Traumatic rhabdomyolysis, acute, present on adm ission, active - Initial CK 1028. Mild CLAUDE (Cr 1.2) which has now improved to 1.9. - IVF - Trend CK level - Hold [employer] atorvastatin (off note, patient has not taken this med for 2 weeks) CLAUDE, present on admission, resolved. Cr now 0.9 after initial of 1.2. - IVF - Trend renal function w/ routine lab - Avoid nephrotoxic agents - Optimize renal perfusion, avoid hypotension Myocardial Infarction Type II, acute, present on admission, active Suspected to be a sequela of an acute fall, rhabdomyolysis, and CLAUDE; however, ACS unlikely. Found to be in AFIB, new onset ? Lactate 3 on admission, improving w/ hydration. - No active CP, dyspnea, or palpitations - New onset AFIB, currently rate controlled. Discuss AC prior to discharge. - Trop elevated 0.082 which downtrended to 0.077. - Repeat EKG in am with no signficant changes but remains in afib. - Give ASA 325 mg tonight, continue ASA 81 mg daily - Risk stratify. FLP and A1C Leukocytosis, acute, present on admission, active - likely secondary to active scrotal / possible testicular infection. - active scotal infection vs reactive (s/p trauma / rhabdo) - UA negative for cystitis. XR unremarkable. - lactate 3 -> improved w/ IVF New onset atrial fibrillation, rate controlled, active - New onset ? Duration unknown. No prior reported or documented history in available records. Need additional history. - Echo showing normal EF, no diastolic dysfunction, and moderate . - Trend and replete electrolytes; maintain K > 4 and Mg >2 - Check TSH, Mg - Resume [employer] carvedilol 25 mg BID w/ hold parameters (hold for SBP < 110 and HR < 60) Scrotal pain, acute, no reported trauma, present on admission, active Etiology not entirely clear. Epididymitis vs. orchitis vs furunculitis. Favor furunculitis at this time based on exam. - Elevate, monitor closely - Scrotal ultrasound without abscess - Scrotal lesions, draining, wound culture with GPC and GPB, follow up cultures. - send STI workup. - Continue on levofloxacin 500 mg daily x10 days, first dose on 06/28. 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 No mention of prior fractures. - per CT pelvis, small buckle fracture of the medial left acetabular cortex without overlying soft tissue thickening. Fracture presumed to be acute (no prior pelvic CT to compare, however record of XR of hip in April 2019 w/o findings of a fracture). Also, recently having multiple recurrent falls. - pain control with... Tylenol 650 mg Q6H prn (mild pain, 1-3) Oxy IR 5 mg Q4H prn (moderate pain, 4-6) Morphine 2 mg IV Q4H (severe pain, 7-10, or break through pain) -orthopedic surgery recommends a non urgent, elective hip replacement but no further management as inpatient. He can ambulate as tolerated with physical therapy per their note. Appreciate Orthopedic surgery recommendations. BPH w/ LUTS, chronic condition, present on admission, active - Restart [employer] regime of terazosin (has been off med for 2 weeks) - he has urinary retention at this time and had a [place] catheter placed. Hypothyroidism, chronic condition, present on admission, active - TSH 11.6 with normal free t4. - Previously on levothyroxine 112 mcg daily, resume [employer] regimen at this time. Repeat TSH after continued medical compliance. Physical Deconditioning, subacute and progressive, present on admission, active - consult PT, eval/treat re: physical deconditioning - consult OT, eval/treat re: decreased ability to partake in ADLs Prolonged QTC, acute, present on admission, active - Asymptomatic. Repeat EKG in a.m. Code status discussed. Patient is undecided in regard to the code status. Will make him a full code, will need to revisit with family Patient does designated his as a surrogate decision maker. VTE prophylaxis with SCDs for now and pending decision re: anticoagulation. Home medications reviewed and reconciled accordingly. Quality VTE Deep Vein Thrombosis/Pulmonary Embolism Present on Admission: No
[2019-06-29] VITALS (8 sets, daily range): BP systolic 137–169; BP diastolic 66–87; PULSE 52–67; RESP 15–22; TEMP 36–36.8; O2SAT 97–99
[2019-06-29] MEDS: OXYCODONE IR 5 MG TABLET PO ×3 (00:34→19:38)
--- NOTE | 2019-06-29 03:56 | PC.NURSE ---
ICU called earlier that pt's. HR down to 38 when asleep. MADIHA Gomez notified, she states monitor pt. see how he's doing this morning. Pt. denies any dizziness, no C/O CP & other discomfort. Will report to day RN.
[2019-06-29] MEDS: HEPARIN 5,000 UNIT/ML VIAL 5000 UNIT SUBCUT ×3 (05:57→20:28)
[2019-06-29] MEDS: SODIUM CHLORIDE 0.9% 1,000 ML 100 ML IV ×2 (05:58→17:52)
[2019-06-29] MEDS: ACETAMINOPHEN 325 MG TABLET 650 MG PO (07:00)
[2019-06-29 07:05] LABS: Add Manual Diff / Slide Review NO; Basophils Absolute Auto 0 /uL (0-100); Basophils Percent Auto 0.6 % (0-2); Eosinophils Absolute Auto 100 /uL (0-450); Hematocrit 37.5 % (41-53); Hemoglobin 12.4 g/dL (13.5-17.5); Lymphocytes Absolute Auto 600 /uL (1100-4500); Lymphocytes Percent Auto 8.9 % (25-40); Mean Corpuscular HGB Conc 33.1 % (30-36); Mean Corpuscular Hemoglobin 30.8 PG (26-34); Mean Corpuscular Volume 93.1 fL (80-100); Monocytes Absolute Auto 500 /uL (0-900); Monocytes Percent Auto 7.1 % (3-14); Neutrophils Absolute Auto 5300 /uL (1500-7000); Neutrophils Percent Auto 81.4 % (50-75); Platelet Count 177 X10^3/uL (150-400); Red Blood Cell Count 4.03 X10^6/uL (4.5-5.9); Red Cell Distribution Width 15.7 % (11.6-14.8); White Blood Cell Count 6.6 X10^3/uL (4.5-11.0)
[2019-06-29 07:20] LABS: Creatine Kinase 230 U/L (55-170)
[2019-06-29 07:21] LABS: BUN Creatinine Ratio 27.8 (6-22); Blood Urea Nitrogen 25 mg/dL (9-20); Calcium 8.4 mg/dL (8.4-10.2); Carbon Dioxide 23 mmol/L (22-32); Chloride 112 mmol/L (98-107); Estimated Glomerular Filt Rate > 60.0 mL/min (>60); Glucose 101 mg/dL (80-110); HEMOLYSIS < 15 (0-50); Magnesium 1.9 mg/dL (1.6-2.3); Potassium 3.6 mmol/L (3.4-5.1); Sodium 140 mmol/L (137-145)
[2019-06-29 08:11] LABS: Hepatitis B Surface Antigen NEGATIVE s/c (NEGATIVE)
[2019-06-29 08:16] LABS: Hep C Virus Ab w/Reflex Quant NEGATIVE s/c (NEGATIVE)
[2019-06-29 08:18] LABS: Add Manual Diff / Slide Review NO; Basophils Absolute Auto 100 /uL (0-100); Basophils Percent Auto 0.8 % (0-2); Eosinophils Absolute Auto 100 /uL (0-450); Eosinophils Percent Auto 1.9 % (2-4); Hematocrit 39.1 % (41-53); Hemoglobin 12.9 g/dL (13.5-17.5); Lymphocytes Absolute Auto 500 /uL (1100-4500); Lymphocytes Percent Auto 8.3 % (25-40); Mean Corpuscular HGB Conc 33.1 % (30-36); Mean Corpuscular Volume 93.5 fL (80-100); Monocytes Absolute Auto 400 /uL (0-900); Monocytes Percent Auto 6.2 % (3-14); Neutrophils Absolute Auto 5400 /uL (1500-7000); Neutrophils Percent Auto 82.8 % (50-75); Platelet Count 181 X10^3/uL (150-400); Red Blood Cell Count 4.18 X10^6/uL (4.5-5.9); Red Cell Distribution Width 15.7 % (11.6-14.8); White Blood Cell Count 6.5 X10^3/uL (4.5-11.0)
[2019-06-29] MEDS: levoFLOXacin 500 MG/100 ML PIGGYBACK 100 MG IV (09:16)
[2019-06-29] MEDS: LEVOTHYROXINE 112 MCG TABLET PO (09:17)
[2019-06-29] MEDS: ASPIRIN EC 81 MG TABLET PO (09:17)
[2019-06-29] MEDS: TERAZOSIN 1 MG CAPSULE 2 MG PO (09:17)
--- NOTE | 2019-06-29 12:24 | PT.IPTN ---
Current Diagnoses Traumatic ischemia of muscle, initial encounter (06/27/19) Physical Therapy Treatment Note M2 PT-IP Current Condition Start: 06/28/19 12:37 Freq: NEEDED Status: Active Protocol: Document 06/28/19 11:40 AB (Rec: 06/28/19 12:57 AB [id number]) Physical Therapy Current Condition Current Condition Evaluation Date 06/28/19 Treatment Diagnosis s/p fall; rhabdomyolysis; difficulty in walking Onset Date 06/27/19 Precautions Other Precautions falls Weight Bearing Status Weight Bearing Status Weight Bear as Tolerated M3 PT-IP Subjective Start: 06/28/19 12:37 Freq: NEEDED Status: Active Protocol: Document 06/29/19 12:08 HH (Rec: 06/29/19 12:23 HH [id number]) Subjective Physical Therapy Visit Type Type Treatment Note Visit Start Time 11:45 Visit Stop Time 12:10 Total Visit Minutes 25 Notes Co-tx with HOLLY Lombardi Number of STEAM FITTER SUPERVISOR MAINTENANCE Visits 0 Physical Therapy Visit Comments Patient Comments Pt wants to sit in the chair Therapy Pain Assessment Pain When Pain Assessed At Rest Pain Present Pain Present Pain Reported Location Left Hip Scale Used pain scale not stated Pain Behaviors Calling Out,Guarding,Holding Area,Moaning,Wincing Pain Management Techniques Distraction,Re-positioning, Timing of Activity with Medications M4 PT-IP Mobility and Gait Start: 06/28/19 12:37 Freq: NEEDED Status: Active Protocol: Document 06/29/19 12:08 HH (Rec: 06/29/19 12:23 HH [id number]) PT-Bed Mobility Assessment Supine to Sit Supine to Sit Moderate Assistance,2 Person Assistance,Head of Bed Elevated,Bedrails Scooting Scooting to Edge of Bed Minimal Assistance,Moderate Assistance PT-Transfer Assessment Sit to and From Stand Sit to and from Stand Minimal Assistance,Moderate Assistance,2 Person Assistance ,Use of Upper Extremities Equipment Transfer Assistive Device Gait Belt,Front Wheeled Walker Orthotic/Prosthetic Devices or Brace: No Transfers Transfer Destination Bed,Chair Transfer Technique Stand Step Pivot Transfer Ability Level of Assist Moderate Assistance,2 Person Assistance,Use of Upper Extremities Comments Mobility Comments Pt c/o L hip pain but less than yesterday. Pt was able to sit up from elevated HOB with STUDENT SERVICES ADVISOR, min A to unweigh LLE. He then stood up with min A from bed and amb towards sink counter for self care. Pt needed extensive cues for walker management. Pt then stood in front of counter unsupported ~30s x 4 but with CGA. He then amb with CGA/ min A and returned to chair with mod A for eccentric stnad to sit. Pt needs education to use staggered stance. Gait Assessment Gait Gait Assistance Required: Contact Guard Assist,Minimum Assistance Distance (Feet) 8 Able to Maintain Weight Bearing Status Yes During Gait Assistive Devices Assistive Device Gait Belt,Front Wheeled Walker Orthotic/Prosthetic Devices or Brace: No Gait Deviations General Gait Pattern Antalgic,Decreased Stride Length,Decreased Feet Clearance,Flexed Trunk,Step-to Gait Factors Limiting Gait Function Factors Limiting Gait Function Decreased Activity Tolerance, Decreased Strength,Difficulty Following Directions,Limited Range of Motion,Pain,Poor Balance,Poor Safety Awareness Comments Gait Comments Pt amb with step to antalgic gait. He tends to WB through forefoot with knee flexion. Pt uses FWW with CGA/ min A. M5 PT-IP Objective Assessments Start: 06/28/19 12:37 Freq: NEEDED Status: Active Protocol: Document 06/28/19 11:40 AB (Rec: 06/28/19 12:57 AB [id number]) Orientation Orientation/Cognition Level of Alertness Confusional State Orientation Name Language Function Ability Hard of Hearing Safety Awareness Decreased Safety Awareness Memory Description Short Term Impaired,Maintenance Technician Impaired Strength Upper Extremity Strength Assessment Left Impaired Lower Extremity Strength Assessment Bilaterally Impaired Comments Strength Comments LLE: increase muscle guarding during ROM and unable to fully assess LLE: grossly graded: 3-/5 RLE: 3+/5 Sensation Assessment Sensation Gross Sensation WNL Muscle Tone Muscle Tone WNL Yes M6 PT-IP Treatment Start: 06/28/19 12:37 Freq: NEEDED Status: Active Protocol: Document 06/28/19 11:40 AB (Rec: 06/28/19 12:57 AB [id number]) Physical Therapy Treatment Exercises Exercises Ankle Pumps,Heel Slides Education Education Provided Safety M7 PT-IP Assessment and Plan Start: 06/28/19 12:37 Freq: NEEDED Status: Active Protocol: Document 06/29/19 12:08 HH (Rec: 06/29/19 12:23 HH [id number]) PT Summary Assessment and Plan Potential Rehabilitation Potential Fair Status of Condition at Evaluation Evolving Summary Impairments Pain,ROM,Strength,Balance, Coordination,Sensation,Tone, Cognition,Bed Mobility, Transfers,Gait,Activity Tolerance Assessment Summary Pt showed improved mobility. Pt got up and amb to sink counter and returned to chair with overall mod A for transfers and CGA/min A for amb. Pt primarily WB through R LE and B UEs. Pt is still has a high fall risk since he is very unsteady and has difficulty follow commands. He needs extensive cues for transfer techniques and walker management. Pt Goals Bed Mobility Goal Minimal Assistance Transfer Goal Minimal Assistance,Front Wheeled Walker Gait Goal Minimal Assistance,Front Wheel Walker Gait Distance 50 Days to Meet Goals 10 Frequency of Treatment Frequency Of Treatment Once a Day Treatment Plan Physical Therapy Treatment Plan Bed Mobility Training,Transfer Training,Gait Training, Therapeutic Exercise,Balance Retraining,Post Op Education, Discharge Planning,Hot or Cold Pack,Neuromuscular Re-ed, Coordination Retraining,Manual Therapy Recommendations To Nursing Amount of Assist Needed 1 Person Assist Discharge Recommendations PT Discharge Recommendations SNF Rehab Equipment Needed for Home Before FWW if pt goes home Discharge
--- NOTE | 2019-06-29 13:02 | OT.IP.TRT ---
Current Diagnoses Traumatic ischemia of muscle, initial encounter (06/27/19) Occupational Therapy Treatment Note M2 OT-IP Current Condition Start: 06/28/19 16:00 Freq: Status: Active Protocol: Document 06/28/19 16:01 [facility] (Rec: 06/28/19 16:26 [facility] [id number]) Occupational Therapy Current Condition Current Condition Evaluation Date 06/28/19 Treatment Diagnosis Left hip fracture Diagnosis Onset Date 06/27/19 Weight Bearing Status Weight Bearing Status Weight Bear as Tolerated Allowed Weight Bearing Amount (enter % Per consulting surgeon, pt or #) (%) would benefit from total hip replacement but pt not wanting the surgery at this time. M3 OT- IP Subjective and Pain Start: 06/28/19 16:00 Freq: Status: Active Protocol: Document 06/29/19 12:45 [facility] (Rec: 06/29/19 13:02 [facility] [id number]) OT- Subjective Occupational Therapy Visit Type Type Treatment Note Visit Start Time 11:45 Visit Stop Time 12:20 Total Visit Minutes 35 Occupational Therapy Visit Comments Patient Comments Pt wanting to get out of bed. PT Mg present for therapy session with pt. OT Pain Assessment Pain When Pain Assessed During Mobility Pain Present Pain Present Pain Reported M4 OT- IP ADL's Start: 06/28/19 16:00 Freq: Status: Active Protocol: Document 06/29/19 12:45 [facility] (Rec: 06/29/19 13:02 [facility] [id number]) OT ADL-Grooming General Evaluation Grooming Ability Standby Assistance Areas Needing Assistance Retrieving/Set-up of Grooming Items Comments OT Grooming Comments Pt needing able to brush his teeth however haphazardly, washed his hands and needing cues for completeness and to wash his face. Pt needing his left arm to assist his right arm to brush his hair. 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 OT ADL-Dressing General Eval Upper Body Dressing Ability Moderate Assistance Comments OT Dressing Comments MODA to assist to jeaneth gown on . Pt having trouble to lift and move right arm. OT ADL-Toileting Comments OT Toileting Comments Pt has [place] in. Able to stand pt with MODA X 1 while nursing aid able to clean pt for pericare needs. M6 OT- IP Functional Cognition Start: 06/28/19 16:00 Freq: Status: Active Protocol: Document 06/29/19 12:45 [facility] (Rec: 06/29/19 13:02 [facility] [id number]) Cognitive Factors Limiting Selfcare Function Cognitive Ability Level of Alertness Alert,Confusional State Patient Orientation Name Attention Span Ability Capable of Focused Attention, Unable to Sustain Attention Ability to Follow Commands Able to Follow One Step Commands with Increased Time, Able to Follow One Step Commands with Repetition Memory Description Short Term Impaired Safety Awareness Underestimates Need for Assistance Problem Solving Ability Unable to Identify Errors, Needs Assist to Identify Solutions Executive Function Ability Unable to Switch Focus,Unable to Filter Distractions,Unable to Make Plans,Unable to Remember Details Cognitive Comments Cognitive Assessment Comments Pt needing cues throughout task of grooming . Pt needing step by step commands for bed mobility needs, safety with FWW, hand placement for use of FWW and to push up from the recliner before standing. M7 OT- IP Mobility and Balance Start: 06/28/19 16:00 Freq: Status: Active Protocol: Document 06/29/19 12:45 [facility] (Rec: 06/29/19 13:02 [facility] [id number]) OT- Bed Mobility Assessment Supine to Sit Supine to Sit Assist Moderate Assistance,2 Person Assistance,Head of Bed Elevated OT-Transfer Assessment Sit to and From Stand Sit to and from Stand Minimal Assistance,Maximum Assistance,2 Person Assistance Transfers Transfer Ability Minimal Assistance,Moderate Assistance,1 Person Assistance ,2 Person Assistance Technique Transfer Destination Bed,Chair Devices Transfer Assistive Devices Gait Belt,Front Wheeled Walker Comments Mobility Comments Pt MODA x 2 to get to the edge of the bed with HOB . Assist for trunk and assist to help move left LE. Pt mainly needing assist to support the weight of his left leg and able to assist to move to the edge of the bed. Sit to stand varies pending on the height of surface standing from, hospital bed ROSANA x2, from the recliner MAX A X 1. When up with FWW at times assist to guide FWW, therefore MODA X 1. As pt tires may need 2nd person to help. OT- Balance Assessment Sitting Balance and Reactions Static Sitting Balance Ability Good Dynamic Sitting Balance Ability Fair Standing Balance and Reactions Static Standing Balance Ability Fair M9 OT- IP Assessment and Plan Start: 06/28/19 16:00 Freq: Status: Active Protocol: Document 06/29/19 12:45 [facility] (Rec: 06/29/19 13:02 [facility] [id number]) OT Summary Assessment and Plan Potential Rehabilitation Potential Fair Analytic Complexity at Evaluation Moderate Summary OT Impairments Pain,Range of Motion,Strength, Balance,Coordination, Functional Cognition, Functional Mobility,Self- Feeding,Grooming,Dressing, Toileting,Bathing,Toilet Transfers,Shower Transfers Progress Towards Goals Slow Progress due to Pain,Slow Progress due to Medical Issues,Slow Progress due to Activity Tolerance,Slow Progress due to Cognition Assessment Summary Pt still having decreased safety awareness, needing two person assist for toileting needs, and 1-2 person for mobility needs. Pt will benefit from skilled rehab. Goals Grooming Goal Standby Assistance Dressing Goal Moderate Assistance Toileting Goal Moderate Assistance Bathing Goal Moderate Assistance Toilet Transfer Goal Minimal Assistance Shower Transfer Goal Moderate Assistance Patient/Caregiver Education Goal Caregiver Independent Assisting Patient Days to Meet Goals 7 Frequency of Treatment Frequency Of Treatment Once a Day Treatment Plan OT Treatment Plan ADL Training,Functional Cognition Training,Functional Mobility,Patient/Family Education,Discharge Planning Other Treatment Recommendations and Next shower Treatment Focus Discharge Recommendations OT Discharge Recommendations SNF Rehab
--- NOTE | 2019-06-29 14:06 | CM.DPC ---
DCP Continued: CM attempted to meet with patient at bedside at 0845 am 06/29/2019. Patient was tired and wanted to meet later. CM asked if patient would be open to a SNF option if it was needed at D/C. Patient stated if he absolutely needed it he would be open to SNF. CM attempted to contact and daughter. Daughters phone was disconnected. CM contacted Herminia at [facility] to review patient for possible admission. CM asked pt nurse to let Cm know when family arrived for the day so CM can F/U about possible D/C plan. Plan: CM D/C plan to continue once family is contacted and Cm is able to get a full assessment. Cynthia Skinner RN
--- NOTE | 2019-06-29 14:41 | PC.NURSE ---
Pt is upset and wants to go home. He is confused and states that he does not trust us. He never wants to come back to this hospital. Try to explain to him that he has some issues going on, such as skin irritation and a bladder infection but he does not understand that he needs to be here. He is unsteady on his feet and has pain to his l. hip. Given percolone about 1 hour ago and denies further pain. He took his meds well this am, bp med not given as hr in 60s and did go down to 38 this am. Coordinator is in talking to patient now. Note left for Dr. Evangelista to hopefully see him soon. Pt keeps repeating the same things and talking about leaving. He is Alert and oriented x2. Coates cath in place with dark yellow urine. His penis and scrotum are looking less red, he is having more redness in his groin folds. Area dried and pillow case applied to help keep moisture out.
--- NOTE | 2019-06-29 15:05 | CM.DANOTE ---
DCP/continued assessment: Reviewed chart. Patient is a 83yr old male admitted to [facility] after [facility] with UTI. PCP is listed is Dr. Flowers. Primary payor is 1)Medicare 2)[employer]. Received verbal referral from CM/BETTY Marie requesting d/c planning follow up. EVP AND CHIEF OPERATING OFFICER reviewed therapy notes. Current recommendation is SNF. Met with patient and spouse/Milena at bedside explained CM/SW role. Milena agreeable to sign MAX. EVP AND CHIEF OPERATING OFFICER went over with patient and spouse current recommendations. Patient very [place] and EVP AND CHIEF OPERATING OFFICER having to repeat information. Patient adamantly refusing SNF when medically stable. Patient reports that he would like to d/c home today. Patient and spouse aware and agreeable to HH. [facility] preferred because they are available over the weekend if needed. F2F and order for HH obtained for RN/PT/OT/HOTEL YARDPERSON/EVP AND CHIEF OPERATING OFFICER. Patient appears confused at time of visit but capable of answering simple questions. Patient reports that he resides with his spouse and uses black cane at baseline. Patient reports that he drives at baseline. Spouse reports that patient's memory has been worsening. Per RODRIGO/Cynthia patient agreeable to SNF earlier today. Referral made for [facility] to review for potential admit. Patient refused adamantly during EVP AND CHIEF OPERATING OFFICER visit. Patient and spouse provided EVP AND CHIEF OPERATING OFFICER with permission to speak with son/Humberto in [place] re: d/c planning. Son reports that he was last visiting patient in April prior to that it has been 9yrs. Son reports that patient has burned a lot of bridges with family members. Son reports that patient most likely has undiagnosed mental health disorder. He has not been physically abusive towards family but very verbally abusive. 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 Son believes this contributes to patient's paranoia and belief that everyone is against me attitude. Notified son/Humberto of recommendations. Son aware that patient most likely will d/c home with HH. Patient and spouse both agreeable to this. Therapy following. If patient goes home he will need FWW. HH orders written and F2F completed. P: CM team to follow up to see if patient open to SNF prior to d/c. If patient continues to refuse spouse agreeable to take patient home with HH. EVP AND CHIEF OPERATING OFFICER asked TOÑO/Kathleen to fax clinicals to [facility] for potential d/c over the weekend. KILEY Cifuentes
--- NOTE | 2019-06-29 16:51 | P.PN_ITS ---
Subjective Subjective Date Patient Seen: 06/29/19 Interval history: Nicolas Burnham is an 83-year-old male with a past medical history significant for CAD s/p CABG, hypertension, hyperlipidemia, hypothyroidism, BPH, B12/Folate deficiency, Muhammad's esophagus, and chronic right hip pain who presented to the ED after sustaining a ground level fall. The patient is resting in bedside chair comfortably. He is eager to go home and repeatedly blames financial gain on the reason we are keeping him in the hospital. He has no complaints other than chronic left hip pain which he reports doesnt bother him significantly. He has no complaints and denies headache, eshortness of breath, chest pain, abdominal pain, nausea, vomiting, fever, chills, dysuria, diarrhea or constipation. He is voiding via coates catheter which will be removed and a void trial attempted. He is eliminating without dif ficulty. He is up ambulating with assistance. Continue PT/OT who are recommending SNF but patient admantly refuses. Exam Vital Signs (past 8 hours): - 06/29/19 12:00 Temperature 97.8 F Pulse Rate 67 Respiratory Rate 15 Blood Pressure 146/79 H Pulse Oximetry 97 Oxygen Delivery Method Room Air Oxygen Flow Rate 0 Narrative Exam Narrative: General: Elderly gentleman sitting in bedside chair and in no acute distress, poor hygiene, appropriately interactive. HEENT: Normocephalic, atraumatic. External ears without defect. Pupils equal, round, and reactive to light. Anicteric sclerae, moist conjunctivae, and no lid lag. Oropharynx free of erythema and cobble stoning with moist mucosa. Neck: Supple with full range of motion. No lymphadenopathy or thyromegaly. Cardiovascular: Irregularly irregular with grade 2/6 holosystolic murmur at LSB. No rubs, or gallops appreciated Pulmonary: Clear to auscultation bilaterally without crackles, wheezes, or rhonchi. Normal respiratory effort with no use of accessory muscles. Genitourinary: Coates catheter in place. Scrotum with folliculitis and mild erythema and edema that appears to be resolving. Abdomen: Soft, bowel sounds present, nontender, nondistended. No hepatosplenomegaly or masses appreciated. Extremities: No clubbing, cyanosis, or edema. Skin: Normal temperature, turgor, and texture; no ulcers, or subcutaneous nodules appreciated. Neurological: Cranial nerves grossly intact. Psychiatric: Normal mood and affect. Alert and oriented to person, place, and time. Mild cognitive impairment versus early dementia with short-term memory recall deficit. Objective Labs Result Diagrams: 06/29/19 07:18 06/29/19 06:30 Labs: Laboratory Results - last 24 hr 06/29/19 06/29/19 06/29/19 06:30 06:30 06:30 WBC 6.6 RBC 4.03 L Hgb 12.4 L Hct 37.5 L MCV 93.1 MCH 30.8 MCHC 33.1 RDW 15.7 H Plt Count 177 Neut % (Auto) 81.4 H Lymph % (Auto) 8.9 L [place] % (Auto) 7.1 Eos % (Auto) 2.0 Baso % (Auto) 0.6 Neut # (Auto) 5300 Lymph # (Auto) 600 L [place] # (Auto) 500 Eos # (Auto) 100 Baso # (Auto) 0 Sodium 140 Potassium 3.6 Chloride 112 H Carbon Dioxide 23 BUN 25 H Creatinine 0.90 Estimated GFR > 60.0 BUN/Creatinine Ratio 27.8 H Glucose 101 Calcium 8.4 Magnesium 1.9 Total Creatine Kinase 230 H D Hep Bs Antigen Hepatitis C Antibody 06/29/19 06/29/19 06/29/19 06:30 06:30 07:18 WBC 6.5 RBC 4.18 L Hgb 12.9 L Hct 39.1 L MCV 93.5 MCH 31.0 MCHC 33.1 RDW 15.7 H Plt Count 181 Neut % (Auto) 82.8 H Lymph % (Auto) 8.3 L [place] % (Auto) 6.2 Eos % (Auto) 1.9 L Baso % (Auto) 0.8 Neut # (Auto) 5400 Lymph # (Auto) 500 L [place] # (Auto) 400 Eos # (Auto) 100 Baso # (Auto) 100 Sodium Potassium Chloride Carbon Dioxide BUN Creatinine Estimated GFR BUN/Creatinine Ratio Glucose Calcium Magnesium Total Creatine Kinase Hep Bs Antigen Negative Hepatitis C Antibody Negative Assessment & Plan Assessment & Plan narrative: Nicolas Burnham is an 83-year-old male with a past medical history significant for CAD s/p CABG, hypertension, hyperlipidemia, hypothyroidism, BPH, B12/Folate deficiency, Muhammad's esophagus, and chronic right hip pain who presented to the ED after sustaining a ground level fall. 1. Acute rhabdomyolysis, present on admission. Resolved. -Initial CK 1028 and now down to 230. -Continued IV fluid hydration until adequately hydrated then discontinued. -Held atorvastatin (of note, patient has not taken this med for 2 weeks). 2. CLAUDE, present on admission. Resolved. -Initial creatinine 1.2 now down to 0.9. -Continued IV fluid hydration until adequately hydrated then discontinued. -Avoid nephrotoxic agents, optimize renal perfusion, and avoid hypotension. -Continue to monitor renal function daily. 3. Acute type II NC, present on admission. Resolved. -Secondary to demand ischemia as sequela of an acute fall, rhabdomyolysis, and CLAUDE; ACS unlikely. Found to be in atrial fibrillation unclear if new onset ? Lactate 3.0 on admission and resolved with hydration. -EKG demonstrated atrial fibrillation without any acute ischemic changes. No active CP, dyspnea, or palpitations. -Initial troponin elevated 0.082 which down trended to 0.077. No need to further trend. -Received aspirin 325 mg x 1. Continue aspirin 81 mg daily. -Risk stratify. FLP and A1C 4. Acute scrotal folliculitis with mild scrotal pain, present on admission. Resolving. -Likely scotal infection due to poor hygiene as patient changes his underwear once a week and is incontinent vs reactive from trauma and rhabdomyolysis. -UA negative for cystitis. -scrotal ultrasound demonstrated normal testicles bilaterally with minimal right scrotal wall thickening measuring 7.0 mm and bowel and fat within the right hemiscrotum suggesting right inguinal hernia. -Continue levofloxacin 500 mg daily pending wound culture (preliminary growing gram-negative bacilli) identification and sensitivities. 5. New onset atrial fibrillation, rate controlled, present on admission. Active. -Duration unknown. No prior reported or documented history in available records. Need additional history. -Echocardiogram demonstrated normal EF, no diastolic dysfunction, and moderate . -Trend and replete electrolytes; maintain K > 4.0 and Mg > 2.0. -Decreased home carvedilol from 25 mg to 6.25 mg twice daily as patient was bradycardic into the high 40s low 50s. 6. Left acetabular fracture, acute, present on admission. Active. 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 No mention of prior fractures. -CT pelvis, small buckle fracture of the medial left acetabular cortex without overlying soft tissue thickening. Fracture presumed to be acute (no prior pelvic CT to compare, however record of XR of hip in April 2019 w/o findings of a fracture). Also, recently having multiple recurrent falls. -Continue pain control with: Tylenol 650 mg Q6H prn (mild pain, 1-3) Oxy IR 5 mg Q4H prn (moderate pain, 4-6) Morphine 2 mg IV Q4H (severe pain, 7-10, or break through pain) -Orthopedic surgery recommends a non-urgent, elective hip replacement but no further management as inpatient. He can ambulate as tolerated with physical therapy per their note. Appreciate Orthopedic surgery recommendations. 7. BPH w/ LUTS, chronic, present on admission. Stable. -Continue home terazosin (has been off med for 2 weeks) -He had acute urinary retention requiring placement of Coates catheter and will attempt void trial closer to discharge. 8. Hypothyroidism, chronic, present on admission. Stable. -TSH 11.6 with normal free T4 0.78. -Continue home levothyroxine 112 mcg daily and repeat TSH after continued medical compliance. 9. Physical deconditioning, subacute and progressive, .present on admission. Active -Consulted PT, eval/treat re: physical deconditioning and OT, eval/treat re: decreased ability to partake in ADLs. PT and OT recommending half-way facility for rehabilitation which patient adamantly refuses. Disposition: Patient likely to discharge home with home health versus half-way facility (which patient adamantly refuses) once wound culture identification and sensitivities have resulted. Quality VTE Deep Vein Thrombosis/Pulmonary Embolism Present on Admission: No
--- NOTE | 2019-06-29 17:53 | PC.NURSE ---
Addendum entered by Valeria George R.N. 06/29/19 22:16: 2130 -Pt continues to be restless and confused. Reports urge to void, then states inability to void. Bladder scan to assure that restlessness is not related to urinary retention although pt has had multiple episodes of incontinence this evening. Two assist to bed, pt repeatedly states that he can not stay in bed. Reassurance provided. Bladder scan for 17cc. Assist back up into the chair. Alarm on. Monitor. Addendum entered by Valeria George R.N. 06/29/19 19:45: 1930 - Chair alarm sounding. Pt up in room. Reports need to void. Assist into the bathroom. Only dribble in toilet. Assist back to bed for bladder scan. Once in bed pt with large inc void. Britany-care, Barrier cream. Pt declines to stay in bed. Requesting to be up in chair. Assist to chair, Chair alarm in place. Percolone given for hip pain, reports 5 of 10. Reinforced safety and call light use. Original Note: 1715 - Pt confused. Repeats same questions. Asking about his , who had just left for home. Reoriented to place and situation. Educated to treatment plan. Pt inc of urine. Also able to use urinal for 25cc. C/o scrotal discomfort cream applied. Pt requesting brief. States that he wears a pad at home, especially at night. Two person assist to stand with FWW. Chair alarm in place. Set up for evening meal.
[2019-06-29 18:13] LABS: Urine Chlamydia NOT DETECTED; Urine N gonorrhoeae NOT DETECTED
[2019-06-29] MEDS: CARVEDILOL 25 MG TABLET 6.25 MG PO (20:25)
[2019-06-30 00:05] VITALS: O2SAT 98
[2019-06-30 00:15] VITALS: BP 132/74; PULSE 65; RESP 18; TEMP 36.6; O2SAT 98
[2019-06-30 04:15] VITALS: BP 131/76; PULSE 46; RESP 18; TEMP 36.2; O2SAT 94
--- NOTE | 2019-06-30 04:18 | PC.NURSE ---
Pt. slept in chair all night, refuse to get in bed. Pt. stood in front of chair to use the urinal and to have he brief change
[2019-06-30 05:07] LABS: Add Manual Diff / Slide Review NO; Basophils Absolute Auto 100 /uL (0-100); Basophils Percent Auto 1.1 % (0-2); Eosinophils Absolute Auto 200 /uL (0-450); Eosinophils Percent Auto 2.6 % (2-4); Hematocrit 37.5 % (41-53); Hemoglobin 12.4 g/dL (13.5-17.5); Lymphocytes Absolute Auto 700 /uL (1100-4500); Mean Corpuscular HGB Conc 33.1 % (30-36); Mean Corpuscular Hemoglobin 30.6 PG (26-34); Mean Corpuscular Volume 92.3 fL (80-100); Monocytes Absolute Auto 600 /uL (0-900); Monocytes Percent Auto 10.2 % (3-14); Neutrophils Absolute Auto 4600 /uL (1500-7000); Neutrophils Percent Auto 75.1 % (50-75); Platelet Count 186 X10^3/uL (150-400); Red Blood Cell Count 4.07 X10^6/uL (4.5-5.9); Red Cell Distribution Width 15.6 % (11.6-14.8); White Blood Cell Count 6.2 X10^3/uL (4.5-11.0)
[2019-06-30 05:12] LABS: BUN Creatinine Ratio 21.1 (6-22); Blood Urea Nitrogen 19 mg/dL (9-20); Calcium 8.5 mg/dL (8.4-10.2); Carbon Dioxide 27 mmol/L (22-32); Chloride 108 mmol/L (98-107); Estimated Glomerular Filt Rate > 60.0 mL/min (>60); Glucose 114 mg/dL (80-110); HEMOLYSIS < 15 (0-50); Magnesium 1.8 mg/dL (1.6-2.3); Potassium 3.8 mmol/L (3.4-5.1); Sodium 138 mmol/L (137-145)
[2019-06-30 05:25] VITALS: O2SAT 94
[2019-06-30] MEDS: HEPARIN 5,000 UNIT/ML VIAL 5000 UNIT SUBCUT (05:49)
[2019-06-30] MEDS: ACETAMINOPHEN 325 MG TABLET 650 MG PO (06:53)
[2019-06-30 07:33] VITALS: BP 166/80; PULSE 65; RESP 18; TEMP 37; O2SAT 96
[2019-06-30] MEDS: ASPIRIN EC 81 MG TABLET PO (08:32)
[2019-06-30] MEDS: CARVEDILOL 25 MG TABLET 6.25 MG PO (08:33)
[2019-06-30] MEDS: SODIUM CHLORIDE 0.9% FLUSH 10 ML IV (08:35)
[2019-06-30] MEDS: TERAZOSIN 1 MG CAPSULE 2 MG PO (08:35)
[2019-06-30] MEDS: LEVOTHYROXINE 112 MCG TABLET PO (08:35)
--- NOTE | 2019-06-30 08:52 | PC.NURSE ---
Addendum entered by Essence Coley R.N. 06/30/19 14:05: Patient discharged to [facility] via wheelchair. contacted to alert her to patients homecoming. Let the know there is a prescription at [facility] that the patient will need. is concerned about her ability to care for patient. Home health, PT/ and OT are scheduled to home visit the patient tomorrow. Expressed 's concerns to care management. Addendum entered by Essence Coley R.N. 06/30/19 13:29: Patient assisted getting dressed. Patient unable to dress self. Patient is adamant that he is going home, reminded patient that he is very weak and should consider a SNF. Patient is extremely resistant to this idea. Patient asks how he is getting home, reminded him by [facility], patient becomes hesitant but refuses to go anywhere else. Patient safety discussed with Dr. Evangelista, proceeding with discharge as planned. Original Note: Patient is resting in chair, listening to the radio. He is A/O x3. no SOB or chest pain, denies pain at this time. Legs are elevated. Lungs sound clear, Pt states he would like to go home. Continues to apologize, telling this nurse, he will not be coming back. Patient stood at bedside for brief change. 1-2 person assist with the FWW, gain belt used. Firm mass noted right scrotum and pelvic area, various scratches and open sores noted as well. Patient cleansed with warm water and soap. Barrier cream applied. Patient tolerated well. Patient back to chair. Call light in reach. Chair alarm on. Patient is 1:1 status.
--- NOTE | 2019-06-30 10:47 | P.DS_ITS ---
History of Present Illness History of Present Illness Date Patient Seen: 06/27/19 Chief complaint: UTI, Fall Narrative: Written by Linda CLEARY: HPI is obtained via direct interview with the patient. The patient is a poor and unreliable historian. The patient is an 83-year-old male with PMH of CAD (s/p CABG), HTN, HLD, hypothyroidism, BPH, B12/Folate deficiency, Muhammad's esophagus, and chronic right hip pain. Patient presented to the ED earlier in the day after sustaining a ground level fall. This is patient's 2nd fall of the day. Patient reports slipping on butter. Reports falling forward. Reports injury to the left aspect of the forehead. Denies loss of consciousness. Typically takes anti-thrombotic therapy, however has not taken any of his medications for the past 2 weeks. Patient states, I don't like to take medication and I'm tired of counting pills. Denies headache, neck pain, change in vision, chest pain, palpitations, dizziness/lightheadedness, shortness of breath, abdominal pain, and GI distress. States for the past month he has had dysuria, burning with urination. There is tenderness and edema of the scrotum and penis. Endorses urinary frequency. Denies hematuria. According to the ED patient has had progressive decline in health and deconditioning at least for the past 1 month. He has had recurrent falls. Patient lives with his . At baseline ambulates with the use of a cane. Known to have chronic left hip pain. ED Presentation & Work-Up VS, 06/27 @ 1610. T 97.5F BP 138/64 HR 96 RR 23 SpO2 93% on RA. Labs, 06/27/2019 @ 1637 Lactate 3.0 -> 1.7 (repeat @ 1906), PCT < 0.05 WBC 12.6 HGB 15.9 HCT 49.2 PLT 273 PT 11.1 INR 1.0 aPTT 32 Na 143 K 4.3 Cl 105 Ca 9.8 CO2 18 BUN 24 Cr 1.2 GFR 58 BUN:Cr 20 Glu 232 T.Bili 1.4 AST 69 ALT 21 Alk Phos 147 Lipase 41 CK (total) 1028 Trop 0.082 BNP 444 UA. protein (trace), occult blood (1+) EKG, 06/27/2019 @ 1626. AFIB (v-rate 92) vs. QTc 514. XR CHEST, 06/27/2019. No acute process. HEAD CT, 06/27/2019. No CT evidence of acute intracranial process. Age appropriate exam with mild chronic microvascular ischemic changes. PELVIS CT, 06/27/2019. - Severe LEFT hip degenerative changes. - Small buckle fracture of the medial LEFT acetabular cortex without overlying soft tissue thickening. This is of uncertain chronicity. MRI is recommended to assess for age. No other acetabular or pelvic fractures. - Nonobstructing, small bowel containing right inguinal hernia - Moderate degenerative changes involving the RIGHT femoral acetabular joint In ED, received 1L NS (1739), Lidocaine patch (1739), and Fentanyl 50 mcg IV ( 1905 and 2054). Coates catheter was placed in ED. Discharge Providers Provider Date of admission: 06/27/19 20:09 Discharge Date: 06/30/19 Primary care physician: Shahab Flowers MD Consults: 06/27/19 21:53 Consult to Dietitian, Adult Routine Comment: Reason For Exam: poor nutritional intake 06/28/19 02:21 Consult to Orthopedic Surgery Routine Comment: will need to notify in am (ie, 06/28 at 7 am) Consulting Provider: Toni Christine Reason for consultation: small buckle fracture left acetabular cortex Has provider been notified: No 06/28/19 08:04 Consult to Physical Therapy Evaluate & Treat Comment: physical deconditioing, acetabular fracture new? Physician Instructions: Evaluate and Treat 06/28/19 08:05 Consult to Occupational Therapy Evaluate & Treat Comment: decreased ability to partake in ADLs Physician Instructions: Evaluate and treat 06/29/19 14:51 Consult to Home Health Routine Comment: d/c planning Reason For Exam: Home health for PT/OT/RN/LEACH TANK TENDER/GLASS TOUGHENING OPERATOR 06/30/19 10:42 Consult to Physical Therapy Evaluate & Treat Comment: FWW for home use Physician Instructions: Evaluate and Treat Discharge provider: Breann Evangelista DO Summary Hospital Course Discharge Diagnosis: 1. Acute rhabdomyolysis, present on admission. Resolved. 2. CLAUDE, present on admission. Resolved. 3. Acute demand ischemia, present on admission. Resolved. 4. Acute scrotal folliculitis with mild scrotal pain, present on admission. Resolving. 5. Possible new onset atrial fibrillation, rate controlled, present on admission. Active. 6. Left acetabular fracture, acute, present on admission. Active. 7. BPH w/ LUTS, chronic, present on admission. Stable. 8. Hypothyroidism, chronic, present on admission. Stable. 9. Physical deconditioning, subacute and progressive, present on admission. Active 10. Probable dementia with paranoia and medication non-compliance. Hospital Course: Nicolas Burnham is an 83-year-old male with a past medical history significant for CAD s/p CABG, hypertension, hyperlipidemia, hypothyroidism, BPH, B12/Folate deficiency, Muhammad's esophagus, and chronic right hip pain who presented to the ED after sustaining a ground level fall. 1. Acute rhabdomyolysis, present on admission. Resolved. -Initial CK 1028 and now down to 230. -Continued IV fluid hydration until adequately hydrated then discontinued. -Held atorvastatin initially for which patient did not take for several weeks prior to admission. Restarted at time of discharge. 2. CLAUDE, present on admission. Resolved. -Initial creatinine 1.2 and returned to baseline of 0.9. -Continued IV fluid hydration until adequately hydrated then discontinued. -Avoided nephrotoxic agents, optimized renal perfusion, and avoided hypotension. -Continued to monitor renal function daily. 3. Acute demand ischemia, present on admission. Resolved. -Secondary to and sequela of an acute fall, rhabdomyolysis, and CLAUDE; ACS unlikely. Found to be in atrial fibrillation unclear if new onset ? Lactate 3.0 on admission and resolved with hydration. -EKG demonstrated atrial fibrillation without any acute ischemic changes. No active CP, dyspnea, or palpitations. -Initial troponin elevated 0.082 which down trended to 0.077. No need to further trend. -Received aspirin 325 mg x 1. Continued aspirin 81 mg daily. Defer discussion regarding anticoagulation to PCP. -Risk stratify fasting lipid panel demonstrated moderate lipid control with only mildly elevated LDL at 110 and hemoglobin A1C which demonstrated prediabetes at 5.9%. 4. Acute scrotal folliculitis with mild scrotal pain, present on admission. Resolving. -Likely scotal infection due to poor hygiene as patient changes his underwear once a week and is incontinent vs reactive from trauma and rhabdomyolysis. -UA negative for cystitis. -scrotal ultrasound demonstrated normal testicles bilaterally with minimal right scrotal wall thickening measuring 7.0 mm and bowel and fat within the right hemiscrotum suggesting right inguinal hernia. -Continue levofloxacin 500 mg daily pending wound culture (preliminary growing gram-negative bacilli) identification and sensitivities. 5. Possible new onset atrial fibrillation, rate controlled, present on admission. Active. -Duration unknown. No prior reported or documented history in available records. Need additional history. -Echocardiogram demonstrated normal EF, no diastolic dysfunction, and moderate . -Trend and repleted electrolytes as needed with goal K > 4.0 and Mg > 2.0. -Decreased home carvedilol from 25 mg to 6.25 mg twice daily as patient was bradycardic into the high 40s low 50s. -Received aspirin 325 mg x 1. Continued aspirin 81 mg daily. Defer discussion regarding anticoagulation to PCP. 6. Left acetabular fracture, acute, present on admission. Active. 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 No mention of prior fractures. -CT pelvis demonstrated small buckle fracture of the medial left acetabular cortex without overlying soft tissue thickening. Fracture presumed to be acute (no prior pelvic CT to compare, however record of XR of hip in April 2019 w/o findings of a fracture). Also, recently having multiple recurrent falls. -Continued pain control with: Tylenol 650 mg every 6 hours as needed for mild pain and oxycodone IR 5 mg every 4 hours as needed for moderate to severe. Patient without significant pain at discharge. -Orthopedic surgery recommends a non-urgent, elective hip replacement but no further management as inpatient. He can ambulate as tolerated with physical therapy per their note. Appreciate Orthopedic surgery recommendations. 7. BPH w/ LUTS, chronic, present on admission. Stable. -Continued home terazosin which he had not been taking several weeks prior to admission. -He had acute urinary retention requiring placement of Coates catheter and removed with patient voiding without difficulty and minimal PVR. 8. Hypothyroidism, chronic, present on admission. Stable. -TSH 11.6 with normal free T4 0.78. -Continued home levothyroxine 112 mcg daily and repeat TSH after continued medical compliance. 9. Physical deconditioning, subacute and progressive, present on admission. Active -Consulted PT, eval/treat re: physical deconditioning and OT, eval/treat re: decreased ability to partake in ADLs. PT and OT recommending correction facility for rehabilitation which patient adamantly refuses and patient at time of discharge was reluctant regarding home health as he does not want anyone in his home. Plan for home health and will be up to patient and his spouse to ac cept help including PT/OT/Nursing/medication and bath aid/GLASS TOUGHENING OPERATOR. -Recommended close follow-up with PCP as patient is willing to see outpatient provider. 10. Probable dementia with paranoia and medication non-compliance. -Patient with significant short and long-term memory impairment and unwilling to perform cognitive testing due to paranoia and likely inability to complete tasks. -Patient threatened to leave AMA several times during admission and believed he remained hospitalized for financial gain rather than results of wound culture identification and sensitivities. -Patient tangential and unable to understand medication regimen with undoubted medication non-compliance. Patient and spouse refuse for patient to go to SNF for rehab and patient at time of discharge was reluctant regarding home health as he does not want anyone in his home. Plan for home health and will be up to patient and his spouse to accept help including PT/OT/Nursing/medication and bath aid/GLASS TOUGHENING OPERATOR. -Recommended close follow-up with PCP as patient is willing to see outpatient provider. Exam Vital Signs (past 8 hours): - 06/30/19 04:15 06/30/19 05:25 06/30/19 07:33 Temperature 97.1 F L 98.6 F Pulse Rate 46 L 65 Respiratory Rate 18 18 Blood Pressure 131/76 166/80 H Pulse Oximetry 94 94 96 Oxygen Delivery Method Room Air Oxygen Flow Rate 0 Narrative Exam Narrative: General: Elderly gentleman sitting in bedside chair and in no acute distress, poor hygiene, tangential with probable dementia but otherwise appropriately interactive. HEENT: Normocephalic, atraumatic. External ears without defect. Pupils equal, round, and reactive to light. Anicteric sclerae, moist conjunctivae, and no lid lag. Oropharynx free of erythema and cobble stoning with moist mucosa. Neck: Supple with full range of motion. No lymphadenopathy or thyromegaly. Cardiovascular: Irregularly irregular with grade 2/6 holosystolic murmur at LSB. No rubs, or gallops appreciated Pulmonary: Clear to auscultation bilaterally without crackles, wheezes, or rhonchi. Normal respiratory effort with no use of accessory muscles. Genitourinary: Coates removed. Scrotum with folliculitis resolving. No longer purulent or erythrematous. Abdomen: Soft, bowel sounds present, nontender, nondistended. No hepatosplenomegaly or masses appreciated. Extremities: No clubbing, cyanosis, or edema. Skin: Normal temperature, turgor, and texture; no ulcers, or subcutaneous nodules appreciated. Neurological: Cranial nerves grossly intact. Psychiatric: Irritable mood and affect. Alert and oriented to person and place. Patient at times masks memory impairment due to paranoia and redirection but at other times it is obvious patient likely has dementia possibly advanced with short and intermediate teacher memory impairment. Objective Labs Result Diagrams: 06/30/19 04:55 06/30/19 04:55 Labs: Laboratory Results - last 24 hr 06/27/19 06/30/19 06/30/19 16:31 04:55 04:55 WBC 6.2 RBC 4.07 L Hgb 12.4 L Hct 37.5 L MCV 92.3 MCH 30.6 MCHC 33.1 RDW 15.6 H Plt Count 186 Neut % (Auto) 75.1 H Lymph % (Auto) 11.0 L [place] % (Auto) 10.2 Eos % (Auto) 2.6 Baso % (Auto) 1.1 Neut # (Auto) 4600 Lymph # (Auto) 700 L [place] # (Auto) 600 Eos # (Auto) 200 Baso # (Auto) 100 Sodium 138 Potassium 3.8 Chloride 108 H Carbon Dioxide 27 BUN 19 Creatinine 0.90 Estimated GFR > 60.0 BUN/Creatinine Ratio 21.1 Glucose 114 H Calcium 8.5 Magnesium 1.8 Ur Chlamydia DNA (PCR) Not detected N gonorrhoeae DNA (PCR) Not detected Discharge Plan Discharge Plan Patient Disposition: Home Health Service Discharge comment: We recommend correction facility for rehabilitation which you have kindly declined. Your being discharged home with home health PT/OT/Nursing/Aide/GLASS TOUGHENING OPERATOR. You have a scrotal infection and have been prescribed levofloxacin 750 mg for 4 additional days. Your carvedilol dose has been lowered from 25 mg to 6.25 mg twice daily due to low heart rate. You have been provided a walker please use this at all times to ambulate. Please follow-up with your primary care provider, Dr. Flowers, in the next 1 week regarding your ho spitalization. Discharge Med Rec/Prescriptions Prescriptions: New levofloxacin 750 mg tablet 750 mg PO DAILY Qty: 4 RF: 0 carvedilol 6.25 mg tablet 6.25 mg PO BID Qty: 60 RF: 0 Continued metformin 500 mg tablet 500 mg PO BID RF: 0 atorvastatin 80 mg Tablet 80 mg PO BEDTIME RF: 0 amlodipine 5 mg tablet 5 mg PO DAILY RF: 0 terazosin 2 mg Capsule 2 mg PO DAILY RF: 0 omeprazole 20 mg Capsule,Delayed Release(Dr/Ec) 20 mg PO DAILY RF: 0 levothyroxine 112 mcg tablet 112 mcg PO DAILY RF: 0 cyanocobalamin (vitamin B-12) [Vitamin B-12] 2,500 mcg Tablet, Sublingual 2,500 mcg SUBLINGUAL DAILY RF: 0 aspirin 81 mg Tablet,Delayed Release (Dr/Ec) 81 mg PO DAILY RF: 0 acetaminophen 500 mg Tablet 500 - 1,000 mg PO Q6H PRN (Reason: pain) RF: 0 ramipril 10 mg Capsule 10 mg PO DAILY RF: 0 omega-3 fatty acids-fish oil [Fish Oil] 360-1,200 mg Capsule 1 cap PO 3XW RF: 0 Vitamin D3 4,000 unit Capsule 4,000 unit PO DAILY RF: 0 Discontinued carvedilol 25 mg Tablet 25 mg PO BID RF: 0 Follow up/Referrals: Shahab Flowers MD [Primary Care Provider] - 1 Week Provider Discharge Instructions Diet: Carb-consistent/Diabetic, Low-fat, Low-sodium and Low-cholesterol Activity: Activity as tolerated with forward wheeled walker and physical and occupational therapy. Visit Report/Discharge Packet Instructions: How to Prevent Falls Discharge Data Primary Care Provider: Shahab Flowers V Discharges patient from system. Discharge Date/Time: 06/30/19 14:15 Quality VTE Deep Vein Thrombosis/Pulmonary Embolism Present on Admission: No
--- NOTE | 2019-06-30 10:56 | CM.DPC ---
Addendum entered by Dee Zavaleta R.N. 06/30/19 14:20: Had called , Milena, for she does not drive, and no immediate family to pick him up. stated, I don't really think that I can care for him, for I have my own health issues. Let know that patient is medically stable, and he does not want to go to a care facility, and can't enforce this with him if this is not what he wants. Let know that home health would be in tomorrow, or Tuesday. Called and left a message with [facility] to see if they can see patient tomorrow, instead of Tuesday. Attempted to get transportation for patient through [employer], and they did not respond back. [employer] [facility] does have availabilities on week-ends until they have more staff. Called a family member, Humberto, who resides in [facility]. Stated. Stated the concerns at home is that patient wants to drive, and is not safe, and also, incontinent. He is aware that patient does not want to go to a senior care facility. Other concerns are falls, for is not able to assist him up if he falls. At this point, patient is medically stable, and will go home with home health. Went ahead and contacted [facility] and they can pick him up. Collaborated with Landy in the physical therapy department, and she stated that he will be going home with a walker. Updated , for [facility] is to pick patient up at 1400. Spoke to nursing staff about concerns of patient going home, secondary to instability and fall risk. Encouraged to call APS if concerned about care and safety issues. Original Note: DCP Cont: Patient is to be discharged today. Called and updated Tova at [facility]. Stated that they could potentially see patient tomorrow or Tuesday. Sent note from 06/29, face sheet, orders, face to face, and discharge summary. Patient is to have all disciplines, nursing, MEAT CUTTING TEACHER, P.T, O.T, bath aide. Patient has refuses senior care. P: Patient is to be discharged home today on home health with [place]. Dee Zavaleta RN/Quill Cleaner
[2019-06-30] MEDS: levoFLOXacin 500 MG/100 ML PIGGYBACK 100 MG IV (11:31)
--- NOTE | 2019-06-30 12:10 | PT.IPTN ---
Current Diagnoses Traumatic ischemia of muscle, initial encounter (06/27/19) Physical Therapy Treatment Note M2 PT-IP Current Condition Start: 06/28/19 12:37 Freq: NEEDED Status: Active Protocol: Document 06/28/19 11:40 AB (Rec: 06/28/19 12:57 AB [id number]) Physical Therapy Current Condition Current Condition Evaluation Date 06/28/19 Treatment Diagnosis s/p fall; rhabdomyolysis; difficulty in walking Onset Date 06/27/19 Precautions Other Precautions falls Weight Bearing Status Weight Bearing Status Weight Bear as Tolerated M3 PT-IP Subjective Start: 06/28/19 12:37 Freq: NEEDED Status: Active Protocol: Document 06/30/19 12:10 GGD (Rec: 06/30/19 14:34 GGD [id number]) Subjective Physical Therapy Visit Type Type Treatment Note Visit Start Time 11:33 Visit Stop Time 12:08 Total Visit Minutes 35 Number of RESTAURANT DELIVERY DRIVER Visits 1 Physical Therapy Visit Comments Patient Comments Pt willing to work with therapy. M4 PT-IP Mobility and Gait Start: 06/28/19 12:37 Freq: NEEDED Status: Active Protocol: Document 06/30/19 12:10 GGD (Rec: 06/30/19 14:34 GGD [id number]) PT-Transfer Assessment Sit to and From Stand Sit to and from Stand Contact Guard Assistance, Minimal Assistance,Use of Upper Extremities Equipment Transfer Assistive Device Gait Belt,Front Wheeled Walker Orthotic/Prosthetic Devices or Brace: No Transfers Transfer Destination Chair Transfer Ability Level of Assist Moderate Assistance,1 Person Assistance,Use of Upper Extremities Comments Mobility Comments Pt need mod cues for sit to stand, but CGA after cues. Gait Assessment Gait Gait Assistance Required: Contact Guard Assist Distance (Feet) 60 Able to Maintain Weight Bearing Status Yes During Gait Assistive Devices Assistive Device Gait Belt,Front Wheeled Walker Orthotic/Prosthetic Devices or Brace: No Gait Deviations General Gait Pattern Antalgic,Decreased Stride Length,Decreased Feet Clearance,Flexed Trunk,Step-to Gait Factors Limiting Gait Function Factors Limiting Gait Function Decreased Activity Tolerance, Decreased Strength,Difficulty Following Directions,Limited Range of Motion,Pain,Poor Balance,Poor Safety Awareness Comments Gait Comments Pt need max cues to keep FWW close. M5 PT-IP Objective Assessments Start: 06/28/19 12:37 Freq: NEEDED Status: Active Protocol: Document 06/28/19 11:40 AB (Rec: 06/28/19 12:57 AB [id number]) Orientation Orientation/Cognition Level of Alertness Confusional State Orientation Name Language Function Ability Hard of Hearing Safety Awareness Decreased Safety Awareness Memory Description Short Term Impaired,Business Account Executive Impaired Strength Upper Extremity Strength Assessment Left Impaired Lower Extremity Strength Assessment Bilaterally Impaired Comments Strength Comments LLE: increase muscle guarding during ROM and unable to fully assess LLE: grossly graded: 3-/5 RLE: 3+/5 Sensation Assessment Sensation Gross Sensation WNL Muscle Tone Muscle Tone WNL Yes M6 PT-IP Treatment Start: 06/28/19 12:37 Freq: NEEDED Status: Active Protocol: Document 06/30/19 12:10 GGD (Rec: 06/30/19 14:34 GGD [id number]) Physical Therapy Treatment Equipment Issued Equipment Type and Company FWW M7 PT-IP Assessment and Plan Start: 06/28/19 12:37 Freq: NEEDED Status: Active Protocol: Document 06/30/19 12:10 GGD (Rec: 06/30/19 14:34 GGD [id number]) PT Summary Assessment and Plan Summary Assessment Summary Pt needed mod to max cues. PT able to progress with mobility . He needed less assist with sit to stand. He was able to progress his gait distance, but need max cues. He would benifit from SNF to improve functional mobility. Frequency of Treatment Frequency Of Treatment Once a Day Treatment Plan Physical Therapy Treatment Plan Bed Mobility Training,Transfer Training,Gait Training, Therapeutic Exercise,Balance Retraining,Post Op Education, Discharge Planning,Hot or Cold Pack,Neuromuscular Re-ed, Coordination Retraining,Manual Therapy Recommendations To Nursing Amount of Assist Needed 1 Person Assist Discharge Recommendations PT Discharge Recommendations SNF Rehab
[2019-07-02 08:47] LABS: Syphilis AB Cascading Reflex NEGATIVE (Negative)
[2019-07-04 09:17] LABS: Hepatitis B Core Antibody Nonreactive (Nonreactive)
[2019-07-04 11:33] LABS: Hepatitis B Surf Ab Qualitativ Nonreactive (Nonreactive)
== END 2019-06-30 14:15 | disposition home health service (06) | DRG 963 ==
LOC: ED 20:10 → AC 20:12
PROVIDERS: Internal Medicine; Admitting Provider Nurse Practitioner Gerontology; Emergency Provider Emergency Medicine; PCP Internal Medicine; Visit Provider Nurse Practitioner Gerontology
DX: T79.6XXA Traumatic ischemia of muscle, initial encounter (principal); S32.492A Other specified fracture of left acetabulum, initial encounter for closed fracture; I21.A1 Myocardial infarction type 2; N17.9 Acute kidney failure, unspecified; I48.91 Unspecified atrial fibrillation; R62.7 Adult failure to thrive; Z68.24 Body mass index [BMI] 24.0-24.9, adult; M24.7 Protrusio acetabuli; I45.81 Long QT syndrome; N50.82 Scrotal pain; D72.829 Elevated white blood cell count, unspecified; M16.0 Bilateral primary osteoarthritis of hip; L73.8 Other specified follicular disorders; F22 Delusional disorders; F03.90 Unspecified dementia, unspecified severity, without behavioral disturbance, psychotic disturbance, mood disturbance, and anxiety; I25.10 Atherosclerotic heart disease of native coronary artery without angina pectoris; Z95.1 Presence of aortocoronary bypass graft; I10 Essential (primary) hypertension; E78.5 Hyperlipidemia, unspecified; E03.9 Hypothyroidism, unspecified; R29.6 Repeated falls; N40.1 Benign prostatic hyperplasia with lower urinary tract symptoms; R33.9 Retention of urine, unspecified; Z91.14 Patient's other noncompliance with medication regimen
CPT/HCPCS: 36415; 51701; 70450; 71045; 72192; 76870; 80048; 80053; 80061; 81001; 82550; 82553; 83036; 83605; 83690; 83735; 83880; 84145; 84439; 84443; 84484; 85025; 85610; 85730; 86704; 86706; 86780; 86803; 87040; 87070; 87075; 87077; 87186; 87205; 87340; 87491; 87591; 93005; 93306; 96361; 96374; 96376; 97116; 97162; 97166; 97530; 97535; 99284; 99285; J1644; J1956; J3010

== ENCOUNTER 2019-07-06 17:11 | Inpatient (IN) | payer MEDICARE, OTHER, SELFPAY ==
[2019-07-03 16:38] VITALS: BMI 24.4
[2019-07-06] VITALS (9 sets, daily range): BP systolic 125–166; BP diastolic 56–85; PULSE 58–87; RESP 12–19; TEMP 36.8–37.1; O2SAT 96–99; BMI 26.3
--- NOTE | 2019-07-06 17:37 | DI.CT.S_ITS ---
PROCEDURE: CT HEAD/BRAIN WO CON INDICATIONS: multiple falls, confusion ? blood thinners TECHNIQUE: Noncontrast 4.5 mm thick angled axial sections acquired from the foramen magnum to the vertex, with coronal and sagittal reformats. For radiation dose reduction, the following was used: automated exposure control, adjustment of mA and/or kV according to patient size. COMPARISON: [facility], CT, CT HEAD/BRAIN WO CON, 06/27/2019, 18:02. FINDINGS: Image quality: Excellent. CSF spaces: Basal cisterns are patent. No extra-axial fluid collections. The ventricles are symmetric in size and shape. Brain: No intracranial bleeds or masses. There is cerebral volume loss for age, with resultant ventricular and sulcal prominence. There are periventricular and deep white matter chronic small vessel ischemic changes. There is intracranial internal carotid artery atherosclerosis. Skull and face: Calvarium and visualized facial bones appear intact, without suspicious lesions. Sinuses: Visualized sinuses and mastoids are clear. IMPRESSION: No acute intracranial hemorrhage is seen. No acute intracranial process is seen. Note is made of age-appropriate brain parenchymal volume loss and chronic small vessel ischemic changes. Dictated by: Rudi Delacruz M.D. on 07/06/2019 at 16:59 Approved by: Rudi Delacruz M.D. on 07/06/2019 at 17:00
--- NOTE | 2019-07-06 17:37 | DI.RAD.S_ITS ---
PROCEDURE: XR HIP W PEL IF DONE LT 2V INDICATIONS: left hip pain. TECHNIQUE: 2 views of the hip were acquired. [facility] 11:[facility], [facility], HIP 2V LEFT, 03/16/2010, 14:51. FINDINGS: Bones: No fracture appreciated. No dislocation. 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 No suspicious bony lesions. The visualized pelvic ring appears intact. Soft tissues: No suspicious soft tissue calcifications or masses. IMPRESSION: 1. No fracture identified. Apparent medial left acetabular cortical break seen on recent CT. 2. End-stage left hip DJD. Dictated by: Christopher Rodrigues M.D. on 07/06/2019 at 18:21 Approved by: Christopher Rodrigues M.D. on 07/06/2019 at 18:23
--- NOTE | 2019-07-06 17:38 | DI.RAD.S_ITS ---
PROCEDURE: XR CHEST 1V INDICATIONS: multiple falls, confusion ? blood thinners TECHNIQUE: One view of the chest was acquired. COMPARISON: [facility], CR, XR CHEST 1V, 06/27/2019, 16:48. FINDINGS: Surgical changes and devices: Post median sternotomy and CABG. Lungs and pleura: Lungs are clear. No pleural effusions or pneumothorax. Mediastinum: Mediastinal contours appear normal. Heart size is within normal limits and unchanged. Bones and chest wall: No suspicious bony lesions. Overlying soft tissues appear unremarkable. IMPRESSION: No acute cardiopulmonary abnormality. Dictated by: Christopher Rodrigues M.D. on 07/06/2019 at 18:05 Approved by: Christopher Rodrigues M.D. on 07/06/2019 at 18:05
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
[2019-07-06 18:32] LABS: Add Manual Diff / Slide Review NO; Basophils Absolute Auto 0 /uL (0-100); Basophils Percent Auto 0.4 % (0-2); Eosinophils Absolute Auto 100 /uL (0-450); Eosinophils Percent Auto 0.9 % (2-4); Hematocrit 45.9 % (41-53); Hemoglobin 15.1 g/dL (13.5-17.5); Lymphocytes Absolute Auto 600 /uL (1100-4500); Lymphocytes Percent Auto 5.5 % (25-40); Mean Corpuscular Hemoglobin 30.8 PG (26-34); Mean Corpuscular Volume 93.6 fL (80-100); Monocytes Absolute Auto 700 /uL (0-900); Monocytes Percent Auto 6.4 % (3-14); Neutrophils Absolute Auto 9400 /uL (1500-7000); Neutrophils Percent Auto 86.8 % (50-75); Platelet Count 241 X10^3/uL (150-400); Red Blood Cell Count 4.91 X10^6/uL (4.5-5.9); Red Cell Distribution Width 15.9 % (11.6-14.8); White Blood Cell Count 10.8 X10^3/uL (4.5-11.0)
[2019-07-06] MEDS: ACETAMINOPHEN 325 MG TABLET 650 MG PO (18:32)
[2019-07-06] MEDS: SODIUM CHLORIDE 0.9% 1,000 ML 150 ML IV (18:32)
--- NOTE | 2019-07-06 18:33 | PC.NURSE ---
pt has contusions/ red area on his right knee as well.
--- NOTE | 2019-07-06 18:41 | PC.NURSE ---
condom cath (28MM) is draining yoandy urine without incident
[2019-07-06 18:56] LABS: Bacteria Urine Occasional (0-1); Culture Indicated Urine Cult Not Indicated; Hyaline Casts Urine 10-30/LPF; Mucus Urine 1+ (Negative); RBC Urine 1-5/HPF (0-5/HPF); Squamous Epithelial Cell Urine 0-1 /HPF (0-5/HPF); WBC Urine 1-5/HPF (0-5/HPF)
[2019-07-06 19:08] LABS: PTT Partial Thromboplastin Tim 30 SECONDS (26.4-36.2)
[2019-07-06 19:09] LABS: Alanine Aminotransferase 21 IU/L (<50); Albumin 3.8 g/dL (3.5-5.0); Albumin Globulin Ratio 1.3 (1.0-2.8); Alkaline Phosphatase 98 U/L (38-126); Aspartate Aminotransferase 36 IU/L (17-59); BUN Creatinine Ratio 20.9 (6-22); Bilirubin Total 0.8 mg/dL (0.2-1.3); Blood Urea Nitrogen 23 mg/dL (9-20); Calcium 9.1 mg/dL (8.4-10.2); Carbon Dioxide 33 mmol/L (22-32); Chloride 103 mmol/L (98-107); Creatine Kinase 338 U/L (55-170); Estimated Glomerular Filt Rate > 60.0 mL/min (>60); Globulin 2.9 g/dL (1.7-4.1); Glucose 110 mg/dL (80-110); HEMOLYSIS < 15 (0-50); Lipase 29 U/L (23-300); Potassium 3.7 mmol/L (3.4-5.1); Sodium 140 mmol/L (137-145); Total Protein 6.7 g/dL (6.3-8.2)
[2019-07-06 19:10] LABS: Lactate (Lactic Acid) 1.3 mmol/L (0.7-2.1)
[2019-07-06 19:24] LABS: CKMB % Relative Index 1.3 % (1.5-5.0); Creatine Kinase MB 4.26 ng/mL (<2.37)
[2019-07-06 19:34] LABS: Appearance Urine UA CLEAR; Bilirubin Urine UA NEGATIVE (NEGATIVE); Color Urine UA YELLOW; Glucose Urine UA NEGATIVE (Negative); Ketones Urine UA NEGATIVE (NEGATIVE); Leukocyte Esterase Urine UA NEGATIVE (NEGATIVE); Nitrite Urine UA NEGATIVE (Negative); Occult Blood Urine UA TRACE-LYSED (Negative); Protein Urine UA TRACE (Negative); Urobilinogen Urine UA 0.2 E.U./dL (0.2)
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
[2019-07-07] VITALS (8 sets, daily range): BP systolic 125–142; BP diastolic 53–73; PULSE 54–65; RESP 16–18; TEMP 36.5–37.6; O2SAT 95–97
[2019-07-07] MEDS: CEFTRIAXONE 1 GM/50 ML FROZ.PIGGY IV (01:17)
[2019-07-07] MEDS: ACETAMINOPHEN 325 MG TABLET 650 MG PO ×2 (04:04→18:24)
[2019-07-07 05:51] LABS: Add Manual Diff / Slide Review NO; Basophils Absolute Auto 100 /uL (0-100); Basophils Percent Auto 0.9 % (0-2); Eosinophils Absolute Auto 200 /uL (0-450); Eosinophils Percent Auto 2.7 % (2-4); Hematocrit 37.4 % (41-53); Hemoglobin 12.5 g/dL (13.5-17.5); Lymphocytes Absolute Auto 600 /uL (1100-4500); Lymphocytes Percent Auto 7.2 % (25-40); Mean Corpuscular HGB Conc 33.4 % (30-36); Mean Corpuscular Volume 92.8 fL (80-100); Monocytes Absolute Auto 600 /uL (0-900); Monocytes Percent Auto 7.5 % (3-14); Neutrophils Absolute Auto 6400 /uL (1500-7000); Neutrophils Percent Auto 81.7 % (50-75); Platelet Count 200 X10^3/uL (150-400); Red Blood Cell Count 4.03 X10^6/uL (4.5-5.9); Red Cell Distribution Width 15.5 % (11.6-14.8); White Blood Cell Count 7.8 X10^3/uL (4.5-11.0)
[2019-07-07 06:12] LABS: BUN Creatinine Ratio 28.8 (6-22); Blood Urea Nitrogen 23 mg/dL (9-20); Calcium 8.3 mg/dL (8.4-10.2); Carbon Dioxide 28 mmol/L (22-32); Chloride 106 mmol/L (98-107); Estimated Glomerular Filt Rate > 60.0 mL/min (>60); Glucose 103 mg/dL (80-110); HEMOLYSIS < 15 (0-50); Potassium 3.1 mmol/L (3.4-5.1); Sodium 141 mmol/L (137-145)
[2019-07-07] MEDS: SODIUM CHLORIDE 0.9% 1,000 ML 150 ML IV (06:43)
[2019-07-07] MEDS: POTASSIUM CHLORIDE 20 MEQ TAB 40 MEQ PO (07:04)
--- NOTE | 2019-07-07 10:15 | PT.IIE ---
Medical History (Last Reviewed 07/06/19 @ 17:53 by Shyanne Rob DO) Ankylosis, left hip (Chronic) Muhammad esophagus (Chronic) Essential hypertension (Chronic) Folate deficiency (Chronic) Hyperlipidemia (Chronic) Hypothyroidism (Chronic) Vitamin B12 deficiency (Chronic) Physical Therapy Inpatient Evaluation/Re-Eval M1 PT/OT-IP Prior Functional Status Start: 07/07/19 12:43 Freq: NEEDED Status: Active Protocol: Document 07/07/19 10:15 AB (Rec: 07/07/19 12:57 AB [id number]) Medical Review Prior Functional Status Medical History Reviewed Yes Communication able to make needs known but with confusion Mobility and Gait pt stated that he is modified independent with all mobilities and ambulation using his quad cane and occasionally his FWW Prior Functional Level (Other details) pt was admitted here in the hospital 06/27/19 and d/c'd after falling at home. pt admitted again after multiple falls at home. Pt sustained a L acetabular fx but per hospitalist: Orthopedic surgery recommends a non-urgent, elective hip replacement but no further management as inpatient. He can ambulate as tolerated with physical therapy per their note. Social History Household Members spouse Living Arrangements House Number of Floors (Floors) One Floor Number of Stairs To Enter/Railing? 1 step to enter Home Environment High Toilet,Walk in Shower, Built-In Shower Seat Home Equipment Front Wheel Walker,Quad Cane, Hand Held Shower,Lift Recliner ,Grab Bars Near Toilet,Grab Bars In Shower Additional Social History Comment pt stated that he has an adjustable bed but sleeps on his lift chair M2 PT-IP Current Condition Start: 07/07/19 12:43 Freq: NEEDED Status: Active Protocol: Document 07/07/19 10:15 AB (Rec: 07/07/19 12:57 AB [id number]) Physical Therapy Current Condition Current Condition Evaluation Date 07/07/19 Treatment Diagnosis s/p multiple falls; failure to thrive; difficulty in walking Onset Date 07/06/19 Precautions Other Precautions falls Weight Bearing Status Weight Bearing Status Weight Bear as Tolerated Allowed Weight Bearing Amount (enter % LLE or #) (%) M3 PT-IP Subjective Start: 07/07/19 12:43 Freq: NEEDED Status: Active Protocol: Document 07/07/19 10:15 AB (Rec: 07/07/19 12:57 AB [id number]) Subjective Physical Therapy Visit Type Type Initial Evaluation Visit Start Time 10:15 Visit Stop Time 10:49 Total Visit Minutes 34 Number of SURGICAL INSTRUMENTS INSPECTOR Visits 0 Physical Therapy Visit Comments Patient Comments pt agreed to get up; I want to go home and will not come back here Therapy Pain Assessment Pain When Pain Assessed During Mobility Location Left Hip Scale Used pain scale not stated Pain Management Techniques Distraction,Re-positioning, Timing of Activity with Medications M4 PT-IP Mobility and Gait Start: 07/07/19 12:43 Freq: NEEDED Status: Active Protocol: Document 07/07/19 10:15 AB (Rec: 07/07/19 12:57 AB [id number]) PT-Bed Mobility Assessment Supine to Sit Supine to Sit Maximum Assistance,Head of Bed Elevated,Bedrails Scooting Scooting to Edge of Bed Standby Assistance PT-Transfer Assessment Sit to and From Stand Sit to and from Stand Moderate Assistance,1 Person Assistance,Use of Upper Extremities Equipment Transfer Assistive Device Gait Belt,Front Wheeled Walker Orthotic/Prosthetic Devices or Brace: No Transfers Transfer Destination Chair Transfer Technique Stand Step Pivot Transfer Ability Level of Assist Moderate Assistance,1 Person Assistance,Use of Upper Extremities Gait Assessment Gait Gait Assistance Required: Moderate Assistance Distance (Feet) 25 Able to Maintain Weight Bearing Status Yes During Gait Assistive Devices Assistive Device Gait Belt,Front Wheeled Walker Gait Deviations General Gait Pattern Antalgic,Decreased Stride Length,Decreased Feet Clearance,Flexed Trunk Factors Limiting Gait Function Factors Limiting Gait Function Decreased Activity Tolerance, Decreased Strength,Difficulty Following Directions,Limited Range of Motion,Pain,Poor Balance,Poor Safety Awareness Comments Gait Comments pt tends to push FWW too far away from him and need cues for upright posture, use of FWW and safety PT-Balance Assessment Sitting Balance and Reactions Static Sitting Balance Ability Good Dynamic Sitting Balance Ability Good Standing Balance and Reactions Static Standing Balance Ability Fair Dynamic Standing Balance Ability Poor Device Used FWW M5 PT-IP Objective Assessments Start: 07/07/19 12:43 Freq: NEEDED Status: Active Protocol: Document 07/07/19 10:15 AB (Rec: 07/07/19 12:57 AB [id number]) Orientation Orientation/Cognition Level of Alertness Confusional State Orientation Name Language Function Ability Hard of Hearing Safety Awareness Decreased Safety Awareness Memory Description Short Term Impaired,Risk Investigator Impaired Gross Range of Motion Lower Extremity ROM Assessment Left Impaired Impairments increase LLE guarding/ tightness with PROM Strength Lower Extremity Strength Assessment Left Impaired Hip 3-/5 Knee 3+/5 Sensation Assessment Sensation Gross Sensation WNL Muscle Tone Muscle Tone WNL Yes M6 PT-IP Treatment Start: 07/07/19 12:43 Freq: NEEDED Status: Active Protocol: Document 07/07/19 10:15 AB (Rec: 07/07/19 12:57 AB [id number]) Physical Therapy Treatment Education Education Provided Safety M7 PT-IP Assessment and Plan Start: 07/07/19 12:43 Freq: NEEDED Status: Active Protocol: Document 07/07/19 10:15 AB (Rec: 07/07/19 12:57 AB [id number]) PT Summary Assessment and Plan Potential Rehabilitation Potential Fair Status of Condition at Evaluation Evolving Summary Impairments Pain,ROM,Strength,Balance, Coordination,Sensation,Tone, Cognition,Bed Mobility, Transfers,Gait,Activity Tolerance Assessment Summary pt requiring max A with bed mobility and mod A with transfers and ambulation. presents with unsteady gait and decrease safety awareness affecting mobility level. pt will require SNF rehab to improve strength and mobility. pt with decrease cognitive level affecting safety awareness and will require 24/ 7 assist. Goals Bed Mobility Goal Contact Guard Assistance Transfer Goal Standby Assistance,Front Wheeled Walker Gait Goal Standby Assistance,Front Wheel Walker Gait Distance 100 Other Goals up/down 1 step using FWW CGA Days to Meet Goals 10 Frequency of Treatment Frequency Of Treatment Once a Day Treatment Plan Physical Therapy Treatment Plan Bed Mobility Training,Transfer Training,Gait Training, Therapeutic Exercise,Balance Retraining,Discharge Planning, Hot or Cold Pack,Neuromuscular Re-ed,Coordination Retraining ,Manual Therapy Recommendations To Nursing Amount of Assist Needed 1 Person Assist Discharge Recommendations PT Discharge Recommendations SNF Rehab
[2019-07-07] MEDS: ENOXAPARIN 40 MG/0.4 ML SYRINGE SUBCUT (10:27)
[2019-07-07] MEDS: CARVEDILOL 6.25 MG TABLET PO ×2 (10:27→20:29)
[2019-07-07] MEDS: ASPIRIN EC 81 MG TABLET PO (10:28)
[2019-07-07] MEDS: LEVOTHYROXINE 112 MCG TABLET PO (10:28)
[2019-07-07] MEDS: AMLODIPINE 5 MG TABLET PO (10:28)
[2019-07-07] MEDS: TERAZOSIN 1 MG CAPSULE 2 MG PO (10:34)
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
[2019-07-07] MEDS: INSULIN ASPART 100 UNIT/ML INSULN PEN SUBCUT (12:37)
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
--- NOTE | 2019-07-07 14:52 | PC.NURSE ---
Day shift: Pt forgetful today. Will state I want to go home now. He said that close to 20 times or more today. It was explained to Pt by SEISMOLOGY TEACHER, this typewriter operator automatic, OT, and Dr Richardson today as many (20 or more times that he was not safe to go home yet. He stated that he didn't know why he was here and that was explained to hime that he has had multiple falls at home and was also covered in urine and feces on admit to the ED. By is not able to ambulate safely on his own. He refused any idea of going to SNF today. PITCH GATHERER reported that HR in 30's at times and this typewriter operator automatic told Dr Richardson this and she will look at Pt's med list. Pt sitting in chair sleeping as this is writen w/ no s/s of pain or discomfort. Call light in reach and chair alarm is in use. Door to room open and curtain open for line of site at this RN station.
--- NOTE | 2019-07-07 15:10 | CM.IDA ---
Initial DCP/LEAD PL SQL DEVELOPER Consult Note: LEAD PL SQL DEVELOPER consult placed. APS report filed last night by LEAD PL SQL DEVELOPER Renee ReidSmartFlow TechnologiesCalvin, see her note for detail. According to HPI: Patient presented to the ED today after sustaining a several ground level falls. This is patient's 3rd fall of the day. He does not recall how he slipped, ED report indicated he slipped while boarding his car....He does have urinary continence he smells strongly of urine and his pants are soaked. Reviewed chart thoroughly today and collaborated with Dr Evangelista, OT CJ, by phone w/spouse Falguni, son Humberto and dtr in [facility] (e-D). According to information collected today: Pt is an 83 yo, lives at home w/his Falguni, pt now w/documented evidence of mod-severe dementia (11 out of 30 SLUMS), recent h/o multiple daily falls, failure to thrive at home to include incontinence of urine and evidence of sitting in his urine for a week w/o bathing or changing clothes. Pt has been reported as being combative and impulsive, lacking the insight into his own care needs to thrive or maintain his own health, recent h/o refusing care, compliance w/care is waxing and waning today. Pt wants to leave and Dr Evangelista stating this morning he can leave AMA if desired. According to son Humberto, there is documentation stating spouse is number one DPOA, b/u is dtr in [facility] and her (Yanique) and then son Humberto (S. [place]) lastly. Polo Paul reiterates that pt has burnt many bridges in the past d/t his feelings of paranoia towards many in his life. Pt has two estranged dtrs and Humberto is partially estranged but trying to hang in to assist his father in securing a safer Dispo than returning home. Pt has lately made many comments to son stating his is the cause of all my current problems. Polo Paul explains further that pt has been verbally abusive and threatening to spouse and spouse has given over the keys for Dad to drive because spouse fearful the repercussions if she didn't. According to Dr Evangelista and notes, pt's spouse also has dementia. Placed call to spouse Falguni, she states she has been at home not feeling well. Falguni agrees w/this LEAD PL SQL DEVELOPER that pt is not safe to return home and she is hopeful he could DC to a facility that could manage his needs. Falguni unable to tell this LEAD PL SQL DEVELOPER if they could afford a privately paid facility, she states she and her dtr both have access to their [employer] account. Then placed call to dtr in law/ POA Cassidy, explained role and updated on above. Cassidy states she has been coming up to [place] for years to clean pt/spouse's home, they have been resistant to moving to [place] to be near them. Cassidy is scheduled a vacation to [facility] from Tuesday-Tuesday evening. She will plan to come up to [place] to assist her mom w/their funds to understand what is available for long term care social worker care ? Cassidy shares that pt/spouse probably have approx $4,500 in mo income and approx $25,000 in liquid funds. Pt will inevitably need Medicaid funding for group home care. Cassidy feels her mom is safe to live alone while she is gone and can get a taxi to grocery store or a doc appt as needed. Spouse has a UTI and is taking po abx which Cassidy feels has made spouse feel better and cognition has improved. This LEAD PL SQL DEVELOPER strongly encouraged all family of the following: D/t pt's documented dementia and recent behaviors and unpredictability...Pt should not be driving and should (likely) not have access to their [employer] acct. Family surprised by this suggestion. Next steps unclear, PT recommending SNF, pt mod-max assist. This LEAD PL SQL DEVELOPER can call both SNFs and Medicaid Memory Care units tomorrow to find out about bed availability. Will also contact APS to f/u on 07.06.19 report...current surveillance investigator assigned? KILEY Everett
[2019-07-07] MEDS: ATORVASTATIN 20 MG TABLET 80 MG PO (20:28)
[2019-07-07] MEDS: QUETIAPINE 25 MG TABLET PO (20:30)
--- NOTE | 2019-07-07 21:30 | PC.NURSE ---
Pt continues to be impulsive and incontinent of B/B. Blood glucose WNL this shift. Needs to have a saddle mechanic consult for toenails.
[2019-07-08] VITALS (8 sets, daily range): BP systolic 129–150; BP diastolic 58–80; PULSE 48–73; RESP 18–20; TEMP 36.1–37.1; O2SAT 96–98
[2019-07-08] MEDS: CEFTRIAXONE 1 GM/50 ML FROZ.PIGGY IV (00:13)
[2019-07-08] MEDS: SODIUM CHLORIDE 0.9% FLUSH 10 ML IV ×3 (00:14→20:18)
[2019-07-08] MEDS: ACETAMINOPHEN 325 MG TABLET 650 MG PO ×3 (01:26→20:03)
--- NOTE | 2019-07-08 01:41 | PC.NURSE ---
Addendum entered by Heidi Dorantes R.N. 07/08/19 06:46: Has been cooperative when repositioned/changed during the night until this morning when he became quite upset with having to be disturbed again. Stating repeatedly you're sick and disrespectful. Accusing staff of think it's funny and laughing at me. Threatening to wake staff 10x every night. Despite verbalizations patient did cooperate with having brief changed and being put back into bed so weight could be obtained. Original Note: Patient is oriented except did not know where he was, but when told states I knew that. Is [place] left worse than right; no hearing aids. Breath sounds CTA with RA sat of 98%. HR irregular with rate in 40's; telemetry reading was afib SVR. Denies nausea. BT present and abdomen is soft. Excoriation/patchy rash on lower abdomen, groins and upper thighs anterior/medial. Scabbed abrasion on below right knee and abrasion on left knee as well. Complains of 5/10 left hip pain; medicated with Tylenol. Has been sleeping in chair and assisted to stand to change brief as incontinent. Seems fearful when repositioned hollering pain, pain and soft. Other than calling out when moved is cooperative with care. Did not want to go back into bed so brief changed and repositioned in chair. Able to stand with walker and 1 assist while brief was changed. Fall risk score is high and bed alarm is activated.
[2019-07-08 05:57] LABS: Blood Urea Nitrogen 25 mg/dL (9-20); Calcium 8.5 mg/dL (8.4-10.2); Carbon Dioxide 29 mmol/L (22-32); Chloride 106 mmol/L (98-107); Estimated Glomerular Filt Rate > 60.0 mL/min (>60); Glucose 112 mg/dL (80-110); HEMOLYSIS < 15 (0-50); Magnesium 2.1 mg/dL (1.6-2.3); Potassium 3.7 mmol/L (3.4-5.1); Sodium 141 mmol/L (137-145)
[2019-07-08 06:33] LABS: Procalcitonin < 0.05 ng/mL (<0.5)
[2019-07-08 07:01] LABS: Folate 7.2 ng/mL (2.76-20.0); Vitamin B12 454 pg/mL (239-931)
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
[2019-07-08] MEDS: LEVOTHYROXINE 112 MCG TABLET PO (10:49)
[2019-07-08] MEDS: ASPIRIN EC 81 MG TABLET PO (10:50)
[2019-07-08] MEDS: ENOXAPARIN 40 MG/0.4 ML SYRINGE SUBCUT (10:51)
[2019-07-08] MEDS: AMLODIPINE 5 MG TABLET PO (12:36)
[2019-07-08] MEDS: TERAZOSIN 1 MG CAPSULE 2 MG PO (12:36)
--- NOTE | 2019-07-08 13:02 | P.PN_ITS ---
Subjective Subjective Date Patient Seen: 07/08/19 Interval history: Nicolas Burnham is an 83-year-old male with a past medical history significant for CAD status post CABG, hypertension, hyperlipidemia, hypothyroidism, BPH, B12 and folate deficiency, Muhammad's esophagus, chronic hip pain, and advanced dementia who presented to the ED for recurrent falls. The patient is resting in bedside chair comfortably. Patient reports that the pruritus of his inner thighs has improved. He is receiving barrier and hydrocortisone cream. The patient has no complaints and denies headache, shortness of breath, chest pain, abdominal pain, nausea, vomiting, fever, chills, dysuria, diarrhea or constipation. He has advanced dementia and is alert oriented to person only. He perseverates on medications and how many pills he needs to take per day. His attitude and behavior have improved significantly with Seroquel at bedtime. He is much more friendly and apologetic. He continues to have mild paranoia at times. He is incontinent of both bowel and bladder but is voiding and eliminating without difficulty. He has poor hygiene overall and he is unable to perform his ADLs and his family is unable to care for him any longer. He is up ambulating with significant amount of assistance. Continue PT/OT. Exam Vital Signs (past 8 hours): - 07/08/19 12:00 07/08/19 15:00 07/08/19 16:12 Temperature 98.5 F 98.8 F Pulse Rate 73 65 Respiratory Rate 18 20 Blood Pressure 129/69 130/58 L Pulse Oximetry 96 96 96 Oxygen Delivery Method Room Air Oxygen Flow Rate 0 Narrative Exam Narrative: General: Elderly gentleman sitting in bedside chair and in no acute distress, poor hygiene, advanced dementia with poor insight. HEENT: Normocephalic, atraumatic. External ears without defect. Pupils equal, round, and reactive to light. Anicteric sclerae, moist conjunctivae, and no lid lag. Oropharynx free of erythema and cobble stoning with moist mucosa. Neck: Supple with full range of motion. No lymphadenopathy or thyromegaly. Cardiovascular: Irregularly irregular with grade 2/6 holosystolic murmur at LSB. No rubs, or gallops appreciated. Pulmonary: Clear to auscultation bilaterally without crackles, wheezes, or rhonchi. Normal respiratory effort with no use of accessory muscles. Genitourinary: Scrotum with large inguinal hernia and nearly resolved folliculitis. Several excoriations of inner thighs covered in barrier cream. Abdomen: Soft, bowel sounds present, nontender, nondistended. No hepatosplenomegaly or masses appreciated. Extremities: No clubbing, cyanosis, or edema. Skin: Normal temperature, turgor, and texture; no ulcers, or subcutaneous nodules appreciated. Neurological: Cranial nerves grossly intact. Psychiatric: Normal mood and affect. More pleasant behaviors with intermittent mild paranoia. Alert and oriented to person only. Advanced dementia with short and terminal carman memory impairment. Objective Labs Result Diagrams: 07/07/19 05:04 07/08/19 05:19 Labs: Laboratory Results - last 24 hr 07/08/19 07/08/19 05:19 05:19 Sodium 141 Potassium 3.7 Chloride 106 Carbon Dioxide 29 BUN 25 H Creatinine 1.00 Estimated GFR > 60.0 BUN/Creatinine Ratio 25.0 H Glucose 112 H Calcium 8.5 Magnesium 2.1 Vitamin B12 454 Folate 7.2 Procalcitonin < 0.05 Assessment & Plan Assessment & Plan narrative: Nicolas Burnham is an 83-year-old male with a past medical history significant for CAD status post CABG, hypertension, hyperlipidemia, hypothyroidism, BPH, B12 and folate deficiency, Muhammad's esophagus, chronic hip pain, and advanced dementia who presented to the ED for recurrent falls. 1. Advanced dementia with behavioral disturbance, recurrent falls, and failure to thrive, present on admission. Active. -Patient with significant short and long-term memory impairment with paranoia, bowel and bladder incontinence, inability to perform ADLs, and progressive weakness with recurrent falls. His language skills are intact. He previously was unwilling to perform cognitive testing, however, occupational therapist was able to evaluate cognition with SLUMS for which the patient scored +11/30 indicative of advanced dementia. -Patient threatened to leave AMA several times during previous admission but is unable to do so due to generalized weakness. -Patient tangential and unable to understand medication regimen with undoubted medication non-compliance. -Patient is currently driving and his son who lives out of town reported to SUPERVISOR PERSONNEL CLERKS that his mother is unlikely to take the keys away as patient will threaten her. -Continue physical and occupational therapy evaluation and treatment. Elevated total creatinine kinase 338 due to recurrent falls but is not classified as rhabdomyolysis as CK is not 5 times upper limit of normal. -Started Seroquel 25 mg daily at bedtime for sleep maintenance and to help control behaviors for which patient responds very well and behaviors are much more pleasant. Continues to have intermittent mild paranoia. -Patient does not have capacity to make his own decisions. -Patient does not meet inpatient criteria for admission and requires long-term care placement due to failure to thrive, inability to take care of himself or family to care for him at home. Consulted SUPERVISOR PERSONNEL CLERKS to help with long-term care planning. APS is involved. 2. Recent scrotal folliculitis with mild scrotal pain, present on admission. Resolved. -Secondary to poor hygiene as patient changes his underwear once a week and is incontinent vs reactive from trauma and rhabdomyolysis. -UA negative for cystitis. -Scrotal ultrasound previously demonstrated normal testicles bilaterally with minimal right scrotal wall thickening measuring 7.0 mm and bowel and fat within the right hemiscrotum suggesting right inguinal hernia. -Continue ceftriaxone 1 g IV daily for 3 additional days. It is doubtful that patient continued/finished course of levofloxacin at home due to significant dementia. 3. Elevated troponin of unclear significance, present on admission. Stable. -Patient has mildly elevated troponin at 0.040. Troponin is lower than it was during previous hospitalization and no need to further trend. -Patient has no complaints of chest pain or ACS symptoms. -EKG without acute ischemic changes. 4. Persistent atrial fibrillation, present on admission. Active. -Unclear duration as there is no previous EKG to compare with. Patient continues to be in atrial fibrillation with controlled rate, therefore, likely persistent atrial fibrillation. -Echocardiogram demonstrated normal EF, no diastolic dysfunction, and moderate A S. -Trend and replete electrolytes as needed with goal K > 4.0 and Mg > 2.0. -Discontinued carvedilol 6.25 mg twice daily due to although intermittent significant bradycardia with HR high 30s to low 40s at times. Plan to start metoprolol tartrate 12.5 mg twice daily tomorrow. Continue to monitor HR closely and adjust as necessary. -Continue aspirin 81 mg daily. Patient has recurrent falls and is high risk of bleeding therefore have not initiated anticoagulation. Defer discussion regarding anticoagulation to PCP. 5. Recent left acetabular fracture, acute, present on admission. Active. 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 No mention of prior fractures. -CT pelvis demonstrated small buckle fracture of the medial left acetabular cortex without overlying soft tissue thickening. Fracture presumed to be acute (no prior pelvic CT to compare, however record of XR of hip in April 2019 w/o findings of a fracture). Also, recently having multiple recurrent falls. -Continue pain control with acetaminophen. -Orthopedic surgery previously recommended a non-urgent, elective hip replacement but no further management as inpatient. He can ambulate as tolerated with physical therapy per their note. Appreciate Orthopedic surgery recommendations. 6. Hypertension, chronic, present on admission. Stable. -Continue amlodipine 5 mg daily and ramipril 10 mg daily. Discontinued carvedilol and will start metoprolol tartrate as above. 7. Hyperlipidemia, chronic, present on admission. Stable. -Continue atorvastatin lowered from 80 mg to 40 mg daily at bedtime. May need to be discontinued altogether due to high risk of myopathy in elderly patients and patient has recurrent falls with mildly elevated total CK. 8. BPH with LUTS, chronic, present on admission. Stable. -Continue home terazosin 2 mg daily. 9. Hypothyroidism, chronic, present on admission. Stable. -Continue home levothyroxine 112 mcg daily and repeat TSH after continued medical compliance. 10. Prediabetes, chronic, present on admission. Stable. -Hemoglobin A1c 5.9%. -Discontinued metformin and ACHS blood glucose checks. -Continue diet control with a heart healthy/carbohydrate consistent diet. 11. Rhabdomyolysis ruled out. -Elevated total creatinine kinase 338 due to recurrent falls but is not classified as rhabdomyolysis as CK is not 5 times upper limit of normal. Disposition: Patient needs long-term care arrangement as his spouse does not believe she can care for him on her own any longer. The patient's behaviors are well controlled on Seroquel and he has potential for rehabilitation prior to long-term care placement. Quality VTE Deep Vein Thrombosis/Pulmonary Embolism Present on Admission: No
--- NOTE | 2019-07-08 14:21 | PT.IPTN ---
Physical Therapy Treatment Note M2 PT-IP Current Condition Start: 07/07/19 12:43 Freq: NEEDED Status: Active Protocol: Document 07/07/19 10:15 AB (Rec: 07/07/19 12:57 AB [id number]) Physical Therapy Current Condition Current Condition Evaluation Date 07/07/19 Treatment Diagnosis s/p multiple falls; failure to thrive; difficulty in walking Onset Date 07/06/19 Precautions Other Precautions falls Weight Bearing Status Weight Bearing Status Weight Bear as Tolerated Allowed Weight Bearing Amount (enter % LLE or #) (%) M3 PT-IP Subjective Start: 07/07/19 12:43 Freq: NEEDED Status: Active Protocol: Document 07/08/19 14:12 AW (Rec: 07/08/19 14:21 AW [id number]) Subjective Physical Therapy Visit Type Type Treatment Note Visit Start Time 13:52 Visit Stop Time 14:08 Total Visit Minutes 16 Number of OFFICE ENGINEER Visits 0 Physical Therapy Visit Comments Patient Comments I think you're just making me do this so you still have a job. Therapy Pain Assessment Pain When Pain Assessed During Mobility Pain Present Pain Present Pain Reported Location Left Hip Intensity 5 Scale Used Numeric (1 - 10) Description With Movement Pain Behaviors Facial Grimacing,Wincing Pain Management Techniques Distraction,Re-positioning, Timing of Activity with Medications M4 PT-IP Mobility and Gait Start: 07/07/19 12:43 Freq: NEEDED Status: Active Protocol: Document 07/08/19 14:12 AW (Rec: 07/08/19 14:21 AW [id number]) PT-Transfer Assessment Sit to and From Stand Sit to and from Stand Contact Guard Assistance, Minimal Assistance,1 Person Assistance,Use of Upper Extremities Equipment Transfer Assistive Device Gait Belt,Front Wheeled Walker Orthotic/Prosthetic Devices or Brace: No Transfers Transfer Destination Chair Transfer Technique pt ambulated with FWW Transfer Ability Level of Assist Minimal Assistance,1 Person Assistance,Use of Upper Extremities Comments Mobility Comments Pt required CGA to min assist with transfers as well as min verbal cues for sequencing. Gait Assessment Gait Gait Assistance Required: Contact Guard Assist,1 Person Assist Distance (Feet) 50 Able to Maintain Weight Bearing Status Yes During Gait Assistive Devices Assistive Device Gait Belt,Front Wheeled Walker Gait Deviations General Gait Pattern Antalgic,Decreased Stride Length,Decreased Feet Clearance,Flexed Trunk,Step-to Gait Factors Limiting Gait Function Factors Limiting Gait Function Decreased Activity Tolerance, Decreased Strength,Difficulty Following Directions,Limited Range of Motion,Pain,Poor Balance,Poor Safety Awareness Comments Gait Comments Pt continues to require verbal and tactile cues for upright posture, optimal relationship of walker frame to trunk. M5 PT-IP Objective Assessments Start: 07/07/19 12:43 Freq: NEEDED Status: Active Protocol: Document 07/07/19 10:15 AB (Rec: 07/07/19 12:57 AB [id number]) Orientation Orientation/Cognition Level of Alertness Confusional State Orientation Name Language Function Ability Hard of Hearing Safety Awareness Decreased Safety Awareness Memory Description Short Term Impaired,Ceramic Restorer Impaired Gross Range of Motion Lower Extremity ROM Assessment Left Impaired Impairments increase LLE guarding/ tightness with PROM Strength Lower Extremity Strength Assessment Left Impaired Hip 3-/5 Knee 3+/5 Sensation Assessment Sensation Gross Sensation WNL Muscle Tone Muscle Tone WNL Yes M6 PT-IP Treatment Start: 07/07/19 12:43 Freq: NEEDED Status: Active Protocol: Document 07/08/19 14:12 AW (Rec: 07/08/19 14:21 AW [id number]) Physical Therapy Treatment Education Education Provided Safety M7 PT-IP Assessment and Plan Start: 07/07/19 12:43 Freq: NEEDED Status: Active Protocol: Document 07/08/19 14:12 AW (Rec: 07/08/19 14:21 AW [id number]) PT Summary Assessment and Plan Summary Progress Towards Goals Slow Progress due to Pain,Slow Progress due to Activity Tolerance Assessment Summary Pt unwilling to work on bed mobility today, but was able to progress gait distance with decreased level of assist. Pt expressed conspiratorial view of healthcare workers, but was also apologetic and willing to work with therapy. Pt would benefit from SNF rehab to include / assist with mobility and frequent therapy. Goals Bed Mobility Goal Contact Guard Assistance Transfer Goal Standby Assistance,Front Wheeled Walker Gait Goal Standby Assistance,Front Wheel Walker Gait Distance 100 Other Goals up/down 1 step using FWW CGA Days to Meet Goals 9 Frequency of Treatment Frequency Of Treatment Once a Day Treatment Plan Physical Therapy Treatment Plan Bed Mobility Training,Transfer Training,Gait Training, Therapeutic Exercise,Balance Retraining,Discharge Planning, Hot or Cold Pack,Neuromuscular Re-ed,Coordination Retraining ,Manual Therapy Recommendations To Nursing Amount of Assist Needed 2 Person Assist Discharge Recommendations PT Discharge Recommendations SNF Rehab
--- NOTE | 2019-07-08 14:29 | PT.IPTN ---
Physical Therapy Treatment Note M2 PT-IP Current Condition Start: 07/07/19 12:43 Freq: NEEDED Status: Active Protocol: Document 07/07/19 10:15 AB (Rec: 07/07/19 12:57 AB [id number]) Physical Therapy Current Condition Current Condition Evaluation Date 07/07/19 Treatment Diagnosis s/p multiple falls; failure to thrive; difficulty in walking Onset Date 07/06/19 Precautions Other Precautions falls Weight Bearing Status Weight Bearing Status Weight Bear as Tolerated Allowed Weight Bearing Amount (enter % LLE or #) (%) M3 PT-IP Subjective Start: 07/07/19 12:43 Freq: NEEDED Status: Active Protocol: Document 07/08/19 14:12 AW (Rec: 07/08/19 14:21 AW [id number]) Subjective Physical Therapy Visit Type Type Treatment Note Visit Start Time 13:52 Visit Stop Time 14:08 Total Visit Minutes 16 Number of PORTFOLIO LEAD Visits 0 Physical Therapy Visit Comments Patient Comments I think you're just making me do this so you still have a job. Therapy Pain Assessment Pain When Pain Assessed During Mobility Pain Present Pain Present Pain Reported Location Left Hip Intensity 5 Scale Used Numeric (1 - 10) Description With Movement Pain Behaviors Facial Grimacing,Wincing Pain Management Techniques Distraction,Re-positioning, Timing of Activity with Medications M4 PT-IP Mobility and Gait Start: 07/07/19 12:43 Freq: NEEDED Status: Active Protocol: Document 07/08/19 14:12 AW (Rec: 07/08/19 14:21 AW [id number]) PT-Transfer Assessment Sit to and From Stand Sit to and from Stand Contact Guard Assistance, Minimal Assistance,1 Person Assistance,Use of Upper Extremities Equipment Transfer Assistive Device Gait Belt,Front Wheeled Walker Orthotic/Prosthetic Devices or Brace: No Transfers Transfer Destination Chair Transfer Technique pt ambulated with FWW Transfer Ability Level of Assist Minimal Assistance,1 Person Assistance,Use of Upper Extremities Comments Mobility Comments Pt required CGA to min assist with transfers as well as min verbal cues for sequencing. Gait Assessment Gait Gait Assistance Required: Contact Guard Assist,1 Person Assist Distance (Feet) 50 Able to Maintain Weight Bearing Status Yes During Gait Assistive Devices Assistive Device Gait Belt,Front Wheeled Walker Gait Deviations General Gait Pattern Antalgic,Decreased Stride Length,Decreased Feet Clearance,Flexed Trunk,Step-to Gait Factors Limiting Gait Function Factors Limiting Gait Function Decreased Activity Tolerance, Decreased Strength,Difficulty Following Directions,Limited Range of Motion,Pain,Poor Balance,Poor Safety Awareness Comments Gait Comments Pt continues to require verbal and tactile cues for upright posture, optimal relationship of walker frame to trunk. M5 PT-IP Objective Assessments Start: 07/07/19 12:43 Freq: NEEDED Status: Active Protocol: Document 07/07/19 10:15 AB (Rec: 07/07/19 12:57 AB [id number]) Orientation Orientation/Cognition Level of Alertness Confusional State Orientation Name Language Function Ability Hard of Hearing Safety Awareness Decreased Safety Awareness Memory Description Short Term Impaired,[employer] Impaired Gross Range of Motion Lower Extremity ROM Assessment Left Impaired Impairments increase LLE guarding/ tightness with PROM Strength Lower Extremity Strength Assessment Left Impaired Hip 3-/5 Knee 3+/5 Sensation Assessment Sensation Gross Sensation WNL Muscle Tone Muscle Tone WNL Yes M6 PT-IP Treatment Start: 07/07/19 12:43 Freq: NEEDED Status: Active Protocol: Document 07/08/19 14:12 AW (Rec: 07/08/19 14:21 AW [id number]) Physical Therapy Treatment Education Education Provided Safety M7 PT-IP Assessment and Plan Start: 07/07/19 12:43 Freq: NEEDED Status: Active Protocol: Document 07/08/19 14:12 AW (Rec: 07/08/19 14:21 AW [id number]) PT Summary Assessment and Plan Summary Progress Towards Goals Slow Progress due to Pain,Slow Progress due to Activity Tolerance Assessment Summary Pt unwilling to work on bed mobility today, but was able to progress gait distance with decreased level of assist. Pt expressed conspiratorial view of healthcare workers, but was also apologetic and willing to work with therapy. Pt would benefit from SNF rehab to include 24/ assist with mobility and frequent therapy at discharge from this episode of care. Long-term care considerations likely include LTAC. Goals Bed Mobility Goal Contact Guard Assistance Transfer Goal Standby Assistance,Front Wheeled Walker Gait Goal Standby Assistance,Front Wheel Walker Gait Distance 100 Other Goals up/down 1 step using FWW CGA Days to Meet Goals 9 Frequency of Treatment Frequency Of Treatment Once a Day Treatment Plan Physical Therapy Treatment Plan Bed Mobility Training,Transfer Training,Gait Training, Therapeutic Exercise,Balance Retraining,Discharge Planning, Hot or Cold Pack,Neuromuscular Re-ed,Coordination Retraining ,Manual Therapy Recommendations To Nursing Amount of Assist Needed 2 Person Assist Discharge Recommendations PT Discharge Recommendations SNF Rehab,LTAC
[2019-07-08] MEDS: ATORVASTATIN 20 MG TABLET 40 MG PO (20:03)
[2019-07-08] MEDS: QUETIAPINE 25 MG TABLET PO (20:03)
--- NOTE | 2019-07-08 20:17 | CM.DPC ---
DCP Continued: EMR reviewed: RODRIGO contacted and left a message for [facility], [facility] to start them reviewing for possible admission. RODRIGO also called and spoke with [place] at [facility] and they are reviewing for possible placement. RODRIGO faxed clinicals to all three SNF locations to review for possible placement. RODRIGO department to f/u with possible SNF placements tomorrow 07/09/2019. Cynthia Skinner RN.
[2019-07-08] MEDS: HYDROCORTISONE 1% CREAM 28 GM 1 APPLIC TOP (20:18)
[2019-07-09] VITALS (7 sets, daily range): BP systolic 127–154; BP diastolic 71–89; PULSE 62–76; RESP 16–18; TEMP 36.1–36.7; O2SAT 95–97
--- NOTE | 2019-07-09 01:40 | PC.NURSE ---
Pt. declined to sleep in his bed. Wants to sleep in the recliner, chair alarm clipped to his gown. Will monitor.
[2019-07-09] MEDS: ACETAMINOPHEN 325 MG TABLET 650 MG PO ×2 (05:49→11:51)
[2019-07-09] MEDS: TERAZOSIN 1 MG CAPSULE 2 MG PO (10:11)
[2019-07-09] MEDS: ASPIRIN EC 81 MG TABLET PO (10:12)
[2019-07-09] MEDS: AMLODIPINE 5 MG TABLET PO (10:12)
[2019-07-09] MEDS: LEVOTHYROXINE 112 MCG TABLET PO (10:12)
[2019-07-09] MEDS: ENOXAPARIN 40 MG/0.4 ML SYRINGE SUBCUT (10:12)
[2019-07-09] MEDS: CEFTRIAXONE 1 GM/50 ML FROZ.PIGGY IV (10:13)
[2019-07-09] MEDS: HYDROCORTISONE 1% CREAM 28 GM 1 APPLIC TOP (10:14)
[2019-07-09] MEDS: SODIUM CHLORIDE 0.9% FLUSH 10 ML IV (10:14)
--- NOTE | 2019-07-09 11:01 | OT.IP.TRT ---
Current Diagnoses Unspecified dementia with behavioral disturbance (07/07/19) Occupational Therapy Treatment Note M2 OT-IP Current Condition Start: 07/07/19 13:12 Freq: Status: Active Protocol: Document 07/07/19 13:12 CGR (Rec: 07/07/19 13:36 CGR [id number]) Occupational Therapy Current Condition Current Condition Evaluation Date 07/07/19 Treatment Diagnosis Recurrent falls Diagnosis Onset Date 07/06/19 M3 OT- IP Subjective and Pain Start: 07/07/19 13:12 Freq: Status: Active Protocol: Document 07/09/19 10:53 [facility] (Rec: 07/09/19 11:00 [facility] [id number]) OT- Subjective Occupational Therapy Visit Type Type Treatment Note Visit Start Time 10:00 Visit Stop Time 10:20 Total Visit Minutes 20 Occupational Therapy Visit Comments Patient Comments Pt states very hungry and can not remember if he has eaten breakfast. Spoke to nursing and pt did eat breakfast but stated it was okay for him to get a 1/2 tuna salad sandwich to eat. Pt very focused about having sausage to eat. OT Pain Assessment Pain When Pain Assessed During Mobility Pain Present Pain Present Pain Reported Location Left Hip Pain Behaviors Calling Out,Facial Grimacing, Wincing Management Techniques Distraction,Re-positioning, Timing of Activity with Medications M4 OT- IP ADL's Start: 07/07/19 13:12 Freq: Status: Active Protocol: Document 07/09/19 10:53 [facility] (Rec: 07/09/19 11:00 [facility] [id number]) OT [id number]-[id number]-Oueojxg General Evaluation Self-Feeding Ability Independent OT ADL-Grooming General Evaluation Grooming Ability Standby Assistance Areas Needing Assistance Retrieving/Set-up of Grooming Items Comments OT Grooming Comments Pt only wanting to rinse his mouth with mouth wash and wash his face and hands with wash cloth while sitting from recliner. OT ADL-Toileting General Evaluation Toileting Ability Maximum Assistance Areas Needing Assistance Manage Clothing,Perform Perineal Hygiene Comments OT Toileting Comments Pt needing MODA x 2 to stand while another person assisting pt to pull up brief and for hygiene needs. OT ADL-Bathing Comments OT Bathing Comments Pt refusing to shower. M5 OT- IP IADL's Start: 07/07/19 13:12 Freq: Status: Active Protocol: Document 07/07/19 13:12 CGR (Rec: 07/07/19 13:36 R [id number]) OT-Instrumental Activities of Daily Living Deficits IADL Deficits Identified Deficits Home Safety Awareness Awareness of Need for Assistance at Home Decreased Awareness Ability to Problem Solve Emergency Unable to Problem Solve Situations M6 OT- IP Functional Cognition Start: 07/07/19 13:12 Freq: Status: Active Protocol: Document 07/07/19 13:12 CGR (Rec: 07/07/19 13:36 R [id number]) Cognitive Factors Limiting Selfcare Function Cognitive Ability Level of Alertness Alert,Confusional State Patient Orientation Name,Age,Month,Date,Year,Place ,Situation Attention Span Ability Capable of Focused Attention Ability to Follow Commands Able to Follow One Step Commands with Repetition Memory Description Immediate Impaired,Short Term Impaired,Working Intact Safety Awareness Underestimates Need for Assistance Problem Solving Ability Unable to Identify Errors, Needs Assist to Identify Solutions Cognitive Tests SLUMS Pt agreeable to participate in SLUMS. Slums to be uploaded to pt file. Pt was unable to answer the day of the week but knew the year, state and was quick with the number related questions. He was unable to remember any of the 5 objects, unable to draw an accurate clock with time, and he was unable to answer any of the questions pertaining to the comprehension section of the test. His final score was 11/ 30. Cognitive Comments Cognitive Assessment Comments Pt appears quick with numbers but problem solving and immediate and short term memory are poor. OT- Vision and Hearing OT- Hearing Assessment OT- Hearing Assessment Hearing Impaired OT- Vision Assessment Visual Acuity WFL Visual Attentiveness WFL Occular Pursuits WFL Visual Convergence WFL Visual Smith WFL M7 OT- IP Mobility and Balance Start: 07/07/19 13:12 Freq: Status: Active Protocol: Document 07/07/19 13:12 CGR (Rec: 07/07/19 13:36 R [id number]) OT-Transfer Assessment Sit to and From Stand Sit to and from Stand Moderate Assistance,1 Person Assistance Transfers Transfer Ability Moderate Assistance Technique Transfer Destination Chair Transfer Technique Stand Step Pivot Devices Transfer Assistive Devices Gait Belt,Front Wheeled Walker Comments Mobility Comments Pt ambulated in the room with P.T. present at start of OT session. Sit to stand again for pericare. OT- Balance Assessment Sitting Balance and Reactions Static Sitting Balance Ability Good Dynamic Sitting Balance Ability Fair M8 OT- IP Objective Assessments Start: 07/07/19 13:12 Freq: Status: Active Protocol: Document 07/07/19 13:12 CGR (Rec: 07/07/19 13:36 CGR [id number]) OT Gross Range of Motion Upper Extremity Range of Motion Assessment Within Functional Limits OT Strength Upper Extremity Strength Assessment Within Functional Limits Comments Strength Comments Pt demonstrates 4/5 throughout except to B shlds, however, it appears that he is not understanding the command vs poor shld strength dispite multiple attempts. OT- Coordination Assessment Upper Extremity Finger to Nose Test Within Functional Limits Finger Tapping Test Within Functional Limits OT-Muscle Tone Assessment Muscle Tone WNL Yes OT Sensation Assessment Comments Summary Comments Pt states typical sensation. Edema Edema Absent M9 OT- IP Assessment and Plan Start: 07/07/19 13:12 Freq: Status: Active Protocol: Document 07/09/19 10:53 [facility] (Rec: 07/09/19 11:00 [facility] [id number]) OT Summary Assessment and Plan Potential Rehabilitation Potential Fair Analytic Complexity at Evaluation Moderate Summary OT Impairments Strength,Balance,Functional Cognition,Functional Mobility, Grooming,Dressing,Toileting, Bathing,Toilet Transfers, Shower Transfers Progress Towards Goals Slow Progress due to Activity Tolerance,Slow Progress due to Cognition Assessment Summary Pt decreased short term memory , needing extensive assist for ADl's and functional mobility and will benefit from skilled rehab. Pt will benefit from continued OT to work on increasing safety awareness and completeness for ADL needs . Goals Grooming Goal Standby Assistance Dressing Goal Moderate Assistance Toileting Goal Moderate Assistance Bathing Goal Moderate Assistance Toilet Transfer Goal Contact Guard Assistance Shower Transfer Goal Minimal Assistance Days to Meet Goals 10 Frequency of Treatment Frequency Of Treatment Once a Day Treatment Plan OT Treatment Plan ADL Training,Functional Cognition Training,Functional Mobility,IADL Training, Therapeutic Exercises,Patient/ Family Education,Discharge Planning Discharge Recommendations OT Discharge Recommendations SNF Rehab Home Equipment Needs TBD
--- NOTE | 2019-07-09 11:06 | PC.NURSE ---
Addendum entered by Lydia Mariee R.N. 07/09/19 14:50: TSF - per SS, have spoken to dtr elsa who agrees to pt tsf, however, pt remains very angry when told he will not be going home, I'm very upset and I can't believe I am being treated this way. Addendum entered by Lydia Mariee R.N. 07/09/19 14:27: SS - Vianca in to discuss arrangements with pt regarding transfer, pt continues to be agitated and repeats that he will not go to [facility], originally set up for 1600 today, Vianca to call [facility] to see if arrangements can be made. Addendum entered by Lydia Mariee R.N. 07/09/19 14:03: ANXIETY - pt dtr Elsa arrived from out [facility] and when she spoke pt regarding transfer, he became more anxious and stating please, please, I don't want to go to [facility], I want to stay here or go home, spoke to Elsa and said that it would be better if she met with other family members and asked that she come back at a later time with them and let pt become calmer and he did stop calling out, remained seated in chair. Addendum entered by Lydia Mariee R.N. 07/09/19 11:26: MS/PAIN - up with phys therapy, ambul slowly into hallway x1 person w/gait belt, gait is wobbly and pt needs freq cues, states it is painful when ambulating, ret to chair and given 650 po tylenol. Original Note: AM NOTE - pt seated in chair asleep during bedside shift report, later am awakened for breakfast, oriented to self and birthdate, does state ow and repeats pain with any repositioning, states that he repeats this over and over to distract himself, discomfort l hip, pleasant and interactive, incont urine, pt is fearful of falling when standing and becomes anxious, using gait belt and x 2 person stood chair for brief change and ointment to groin and thighs, with reassurance and cues, stood briefly then repositioned comfort, pt is forgetful and repeats statements frequently, asking for more food several times, added 1/2 sand and pudding mid am.
--- NOTE | 2019-07-09 11:47 | PT.IPTN ---
Current Diagnoses Unspecified dementia with behavioral disturbance (07/07/19) Physical Therapy Treatment Note M2 PT-IP Current Condition Start: 07/07/19 12:43 Freq: NEEDED Status: Active Protocol: Document 07/07/19 10:15 AB (Rec: 07/07/19 12:57 AB [id number]) Physical Therapy Current Condition Current Condition Evaluation Date 07/07/19 Treatment Diagnosis s/p multiple falls; failure to thrive; difficulty in walking Onset Date 07/06/19 Precautions Other Precautions falls Weight Bearing Status Weight Bearing Status Weight Bear as Tolerated Allowed Weight Bearing Amount (enter % LLE or #) (%) M3 PT-IP Subjective Start: 07/07/19 12:43 Freq: NEEDED Status: Active Protocol: Document 07/09/19 11:47 DLM (Rec: 07/09/19 12:54 DLM [id number]) Subjective Physical Therapy Visit Type Type Treatment Note Visit Start Time 11:00 Visit Stop Time 11:47 Total Visit Minutes [address]NAGER Visits 0 Physical Therapy Visit Comments Patient Comments he reports having left hip pain all the time and it limits his ability to walk Patient Goals he wants to go home Therapy Pain Assessment Pain When Pain Assessed During Mobility Pain Present Pain Present Pain Reported Location Left Hip Intensity 5 Scale Used Numeric (1 - 10) Description Aching,With Movement Pain Behaviors Calling Out,Facial Grimacing, Wincing Pain Management Techniques Distraction,Re-positioning, Timing of Activity with Medications M4 PT-IP Mobility and Gait Start: 07/07/19 12:43 Freq: NEEDED Status: Active Protocol: Document 07/09/19 11:47 DLM (Rec: 07/09/19 12:54 DLM [id number]) PT-Bed Mobility Assessment Scooting Scooting to Edge of Bed Minimal Assistance PT-Transfer Assessment Sit to and From Stand Sit to and from Stand Minimal Assistance,Use of Upper Extremities Equipment Transfer Assistive Device Gait Belt,Front Wheeled Walker Transfers Transfer Destination Chair Transfer Technique Stand Step Pivot Transfer Ability Level of Assist Contact Guard Assistance, Minimal Assistance,Use of Upper Extremities Comments Mobility Comments pt up in recliner this visit and wants to stay up, chair alarm in use Gait Assessment Gait Gait Assistance Required: Contact Guard Assist Distance (Feet) 60 Able to Maintain Weight Bearing Status Yes During Gait Assistive Devices Assistive Device Gait Belt,Front Wheeled Walker Gait Deviations General Gait Pattern Antalgic,Decreased Stride Length,Decreased Feet Clearance,Flexed Trunk,Step-to Gait Factors Limiting Gait Function Factors Limiting Gait Function Decreased Activity Tolerance, Decreased Strength,Difficulty Following Directions,Limited Range of Motion,Pain,Poor Balance,Poor Safety Awareness Comments Gait Comments verbal cues to keep fWW close, brief standing breaks to complete his distance of gait and to manage his pain, pt has increased pain with weight bearing on his left LE that radiates into his thigh, as he fatigues he c/o right calf pain PT-Balance Assessment Sitting Balance and Reactions Static Sitting Balance Ability Good Dynamic Sitting Balance Ability Fair Standing Balance and Reactions Static Standing Balance Ability Fair Dynamic Standing Balance Ability Fair Device Used FWW M5 PT-IP Objective Assessments Start: 07/07/19 12:43 Freq: NEEDED Status: Active Protocol: Document 07/07/19 10:15 AB (Rec: 07/07/19 12:57 AB [id number]) Orientation Orientation/Cognition Level of Alertness Confusional State Orientation Name Language Function Ability Hard of Hearing Safety Awareness Decreased Safety Awareness Memory Description Short Term Impaired,Chcf Impaired Gross Range of Motion Lower Extremity ROM Assessment Left Impaired Impairments increase LLE guarding/ tightness with PROM Strength Lower Extremity Strength Assessment Left Impaired Hip 3-/5 Knee 3+/5 Sensation Assessment Sensation Gross Sensation WNL Muscle Tone Muscle Tone WNL Yes M6 PT-IP Treatment Start: 07/07/19 12:43 Freq: NEEDED Status: Active Protocol: Document 07/09/19 11:47 DLM (Rec: 07/09/19 12:54 [facility] [id number]) Physical Therapy Treatment Exercises Exercises Ankle Pumps,Seated Knee Flexion/Extension Education Education Provided Safety M7 PT-IP Assessment and Plan Start: 07/07/19 12:43 Freq: NEEDED Status: Active Protocol: Document 07/09/19 11:47 DLM (Rec: 07/09/19 12:54 [facility] [id number]) PT Summary Assessment and Plan Summary Impairments Pain,ROM,Strength,Balance, Coordination,Sensation,Tone, Cognition,Bed Mobility, Transfers,Gait,Activity Tolerance Progress Towards Goals Slow Progress due to Activity Tolerance Assessment Summary Pt very pleasant today. He is aware he has poor short term memory and knows he asks the same questions more than once. He tolerated short distances of gait with fWW. His distance of gait is limited by pain and fatigue. He is oriented x 4 but could not state the name of the hospital. Goals Bed Mobility Goal Contact Guard Assistance Transfer Goal Standby Assistance,Front Wheeled Walker Gait Goal Standby Assistance,Front Wheel Walker Gait Distance 100 Other Goals up/down 1 step using FWW CGA Days to Meet Goals 9 Frequency of Treatment Frequency Of Treatment Once a Day Treatment Plan Physical Therapy Treatment Plan Bed Mobility Training,Transfer Training,Gait Training, Therapeutic Exercise,Balance Retraining,Discharge Planning, Hot or Cold Pack,Neuromuscular Re-ed Recommendations To Nursing Amount of Assist Needed 1 Person Assist,2 Person Assist Discharge Recommendations PT Discharge Recommendations SNF Rehab
--- NOTE | 2019-07-09 12:40 | P.DS_ITS ---
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 750 mg PO DAILY Qty: 4 RF: 0 Follow up/Referrals: Shahab Flowers MD [Primary Care Provider] - Discharge Health Status Brief summary of current health status: Nicolas Burnham is an 83-year-old male with a past medical history significant for CAD status post CABG, hypertension, hyperlipidemia, hypothyroidism, BPH, B12 and folate deficiency, Muhammad's es ophagus, chronic hip pain, and advanced dementia who presented to the ED for recurrent falls. 1. Advanced dementia with behavioral disturbance, recurrent falls, and failure to thrive, present on admission. Active. -Patient with significant short and long-term memory impairment with paranoia, bowel and bladder incontinence, inability to perform ADLs, and progressive weakness with recurrent falls. His language skills are intact. He previously was unwilling to perform cognitive testing, however, occupational therapist was able to evaluate cognition with SLUMS for which the patient scored +11/30 indicative of advanced dementia. -Patient threatened to leave AMA several times during previous admission but is unable to do so due to generalized weakness. -Patient tangential and unable to understand medication regimen with undoubted medication non-compliance. -Patient is currently driving and his son who lives out of town reported to SILK WINDING MACHINE OPERATOR that his mother is unlikely to take the keys away as patient will threaten her. -Continue physical and occupational therapy evaluation and treatment. Elevated total creatinine kinase 338 due to recurrent falls but is not classified as rhabdomyolysis as CK is not 5 times upper limit of normal. -Started Seroquel 25 mg daily at bedtime for sleep maintenance and to help control behaviors for which patient responds very well and behaviors are much more pleasant. Continues to have intermittent mild paranoia. -Patient does not have capacity to make his own decisions. -Patient does not meet inpatient criteria for admission and requires long-term care placement due to failure to thrive, inability to take care of himself or family to care for him at home. Consulted SILK WINDING MACHINE OPERATOR to help with long-term care planning. APS is involved. Patient will be discharged to SNF rehab upon discharge. 2. Recent scrotal folliculitis with mild scrotal pain, present on admission. Resolved. -Secondary to poor hygiene as patient changes his underwear once a week and is incontinent vs reactive from trauma and rhabdomyolysis. -UA negative for cystitis. -Scrotal ultrasound previously demonstrated normal testicles bilaterally with minimal right scrotal wall thickening measuring 7.0 mm and bowel and fat within the right hemiscrotum suggesting right inguinal hernia. -Patient completed course of antibiotics while here. No need for further antibiotics as an outpatient at this time. 3. Elevated troponin, present on admission. Stable. -Patient has mildly elevated troponin at 0.040. Troponin is lower than it was during previous hospitalization and no need to further trend. -Patient has no complaints of chest pain or ACS symptoms. -EKG without acute ischemic changes. 4. Persistent atrial fibrillation, present on admission. Active. -Unclear duration as there is no previous EKG to compare with. Patient continues to be in atrial fibrillation with controlled rate, therefore, likely persistent atrial fibrillation. -Echocardiogram demonstrated normal EF, no diastolic dysfunction, and moderate . -Trend and replete electrolytes as needed with goal K > 4.0 and Mg > 2.0. -Discontinued carvedilol 6.25 mg twice daily due to although intermittent significant bradycardia with HR high 30s to low 40s at times. Plan to start metoprolol tartrate 12.5 mg twice daily tomorrow. Continue to monitor HR closely and adjust as necessary. -Continue aspirin 81 mg daily. Patient has recurrent falls and is high risk of bleeding therefore have not initiated anticoagulation. Defer discussion regarding anticoagulation to PCP. 5. Recent left acetabular fracture, acute, present on admission. Active. 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 No mention of prior fractures. -CT pelvis demonstrated small buckle fracture of the medial left acetabular cortex without overlying soft tissue thickening. Fracture presumed to be acute (no prior pelvic CT to compare, however record of XR of hip in April 2019 w/o findings of a fracture). Also, recently having multiple recurrent falls. -Continue pain control with acetaminophen. -Orthopedic surgery previously recommended a non-urgent, elective hip replacement but no further management as inpatient. He can ambulate as tolerated with physical therapy per their note. Appreciate Orthopedic surgery recommendations. 6. Hypertension, chronic, present on admission. Stable. -Continue amlodipine 5 mg daily and ramipril 10 mg daily. Discontinued carvedilol and will start metoprolol tartrate as above. 7. Hyperlipidemia, chronic, present on admission. Stable. -Continue atorvastatin lowered from 80 mg to 40 mg daily at bedtime. May need to be discontinued altogether due to high risk of myopathy in elderly patients and patient has recurrent falls with mildly elevated total CK. 8. BPH with LUTS, chronic, present on admission. Stable. -Continue home terazosin 2 mg daily. 9. Hypothyroidism, chronic, present on admission. Stable. -Continue home levothyroxine 112 mcg daily and repeat TSH after continued medical compliance. 10. Prediabetes, chronic, present on admission. Stable. -Hemoglobin A1c 5.9%. -Discontinued metformin and [facility] blood glucose checks. -Continue diet control with a heart healthy/carbohydrate consistent diet. 11. Rhabdomyolysis ruled out. -Elevated total creatinine kinase 338 due to recurrent falls but is not cl assified as rhabdomyolysis as CK is not 5 times upper limit of normal. Disposition: Patient needs long-term care arrangement as his spouse does not believe she can care for him on her own any longer. The patient's behaviors are well controlled on Seroquel and he has potential for rehabilitation prior to long-term care placement. He is being discharged today to SNF rehab. Provider Discharge Instructions Diet: Diet as Tolerated Activity: Advance as tolerated, WBAT per orthopedics. [facility] Rehab type: Physical therapy Discharge Data Primary Care Provider: Shahab Flowers VTE Deep Vein Thrombosis/Pulmonary Embolism Present on Admission: No
--- NOTE | 2019-07-09 16:16 | CM.DPC ---
Addendum entered by Cynthia Skinner R.N. 07/09/19 17:22: DCP Continued: RODRIGO Called Christel patients disease case manager with [facility] [phone]. CM left a voice message explaining patient was D/C to [facility] today @ 4pm. Cynthia Skinner RN Addendum entered by Cynthia Skinner R.N. 07/09/19 17:00: DCP continued: EMR reviewed: CM met with patients daughter Elsa Ramsey here at [facility]. Patients daughter not understanding why her father was not able to D/C home and was being D/C to [facility] instead. CM explained that the patient has had repeat [facility] admissions and multiple falls and failed HH attempt at last d/c. Patients daughter stated understanding. Patients daughter explained that her father was not wanting to go to [facility] because it was in [place] and not in [place] and was frustrated with the D/C plan. CM explained that the SNF ([facility]) here in [place] wouldn't accept patient for admission. RODRIGO spoke with Dr. Ferrell who went and discussed D/C plan with patient and he eventually agreed to go to SNF in [place]. Saumya at [facility] called and set up Cabul[employer] brass pickler time for patient for 4pm. CM completed PASRR and faxed a copy to [facility] along with the SNF order, signed Medication list and D/C summary. CM placed original PASRR in D/C packet to be transported to [facility] with patient and made a copy of the PASRR to be scanned into the chart. Patients nelia called and CM spoke with her about the D/C plan. She stated understanding and was in agreement with RODRIGO, Dr. Ferrell, Patient, patients daughter Elsa and son Humberto about D/C plan to [facility]. Patient D/C to [facility] at 4pm 07/09/2019. Cynthia Skinner RN Original Note: DCP/continued: Reviewed chart. Received notification from MD that patient medically stable for discharge. Received call from patient's son Humberto and spoke with daughter/Elsa. Both in agreement that patient will benefit from SNF. Attempted to call patient's spouse and unable to reach left . Met with patient to discuss plan. Patient very [place]. Patient reports that he prefers to return home. Patient reports that he does not want to go to SNF. PARLIAMENTARY ARCHIVIST explained to patient his repeat visits to [facility] and failed attempt at being home with HH. Patient in partial agreement to go to [facility]. PARLIAMENTARY ARCHIVIST placed call to [facility] and they are unable to accept. Therefore, call placed to [facility], clinicals faxed and patient accepted. Asked CM/Cynthia to speak with family and coordinate/finalize d/c plan. P: [facility] today. KILEY Cifuentes
--- NOTE | 2019-07-09 17:19 | PC.NURSE ---
Pt able to talk to Dr. Ferrell regarding discharge plan. pt was calm and cooperative and he agreed to go to [facility]. was notified. IV dc'd. Report given to Saumya at [facility].
== END 2019-07-09 16:45 | DRG 884 ==
LOC: ED 19:44 → AC 19:57
PROVIDERS: Internal Medicine; Admitting Provider Nurse Practitioner Family; Emergency Provider Emergency Medicine; PCP Internal Medicine; Visit Provider Nurse Practitioner Family
DX: F03.91 Unspecified dementia, unspecified severity, with behavioral disturbance (principal); I48.19 Other persistent atrial fibrillation; F22 Delusional disorders; L73.8 Other specified follicular disorders; S32.492D Other specified fracture of left acetabulum, subsequent encounter for fracture with routine healing; Z91.81 History of falling; I25.10 Atherosclerotic heart disease of native coronary artery without angina pectoris; Z95.1 Presence of aortocoronary bypass graft; I10 Essential (primary) hypertension; E78.5 Hyperlipidemia, unspecified; E03.9 Hypothyroidism, unspecified; N40.1 Benign prostatic hyperplasia with lower urinary tract symptoms; R73.03 Prediabetes; W19.XXXD Unspecified fall, subsequent encounter
CPT/HCPCS: 36415; 70450; 71045; 73502; 80048; 80053; 81001; 82550; 82553; 82607; 82746; 82962; 83605; 83690; 83735; 84145; 84484; 85025; 85610; 85730; 93005; 93010; 94760; 96360; 96361; 97110; 97116; 97162; 97166; 97535; 99283; 99285; G0378; J1650